=== PATIENT | female | born 1950 | race Caucasian/White ===

== ENCOUNTER 2016-05-31 10:05 | Observation (INO) | payer MEDICARE ==
[~2016-05-31] VITALS: Ht 167.6 cm; Wt 108.0 kg
[2016-05-31] VITALS (16 sets, daily range): BP systolic 85–163; BP diastolic 51–93
[~2016-05-31 10:05] MED LIST: ALBU8.5H2 IH; AMOX500C2 PO; ASP325T PO; ASP81TEC PO; BUDE6HFA IH; CITA10TA70 PO; DPAS20025 PO; ERGO400C PO; ESCT10T PO; FRSM40T PO; FURO80TA3 PO; GBPN100C PO; HCT25T PO; HYDR-34 PO; HYDR12.570 GT; LISI10TA PO; METO100T5 PO; POTA10CA43 PO; PRV20T PO; RANI300T4 PO; RNT150T PO; ROPI0.5T2 PO; SIMV40TA4 PO; SULF1TAB38 PO; TIOT18CA IH; VARE0.5T PO; ZLP5T PO; oxygen NSEACH
--- OUTSIDE RECORDS SUMMARY | 2016-05-31 10:12 | XMS REPORT | Continuity of Care Document ---
Author Author [facility] Organization [facility] Address Unknown Phone Unavailable Care Team Providers Care Moulder Operator Name Role Phone Chang Wilkerson PCP [phone] Source Comments Some departments are not documenting in the electronic medical record. If you do not see the information that you expected, contact Release of Information in the Health Information Management department at [phone] for further assistance in locating additional records.[facility] Active Allergies and Adverse Reactions No Known Allergies Current Medications Prescription Sig. Disp. Refills Start End Date Status Date pantoprazole DR(+) Take 40 mg by mouth Active (PROTONIX) 40 mg PO Daily. tablet ranitidine(+) (ZANTAC) Take 150 mg by mouth Active 150 mg PO tablet Twice Daily. celecoxib (CELEBREX) 200 Take 200 mg by mouth Active mg PO capsule Daily. hydrochlorothiazide Take 12.5 mg by mouth At Active (HYDRODIURIL) 12.5 mg PO Bedtime Daily. Works capsule nights. metoprolol XL (TOPROL XL) Take 25 mg by mouth Active 25 mg PO tablet Daily. simvastatin (ZOCOR) 40 mg Take 40 mg by mouth At Active PO tablet Bedtime Daily. aspirin 81 mg PO chew Take 81 mg by mouth Active tablet daily. Indications: ON HOLD torsemide (DEMADEX) 5 mg Take 5 mg by mouth Daily. Active PO tablet Takes in PM because she works nights escitalopram (LEXAPRO) 10 Take 10 mg by mouth Active mg PO tablet Daily. tramadol (ULTRAM) 50 mg Take 50-100 mg by mouth Active PO tablet Every 6 Hours as needed. Max 8 tabs/day acetaminophen 650 mg PO Take 1 Tab by mouth every 30 Tab 07/22/19 Active Tab 6 hours as needed. 11 hydrocodone/acetaminophen Take 1-2 Tabs by mouth 30 Tab 07/22/19 Active (VICODIN) 5/500 mg PO every 6 hours as needed 11 tablet for Pain. lorazepam (ATIVAN) 0.5 mg Take 1-2 Tabs by mouth 30 Tab 07/22/19 Active PO tablet every 6 hours as needed. 11 diphenhydrAMINE Take 1 Cap by mouth every 30 Cap 07/22/19 Active (BENADRYL) 25 mg PO 6 hours as needed. 11 capsule hyoscyamine (LEVSIN/SL) 1 Tab every 4 hours as 30 Tab 07/22/19 Active 0.125 mg SL tablet needed. 11 docusate (COLACE) 100 mg Take 1 Cap by mouth twice 180 Cap 07/22/19 Active PO capsule daily. 11 naproxen (NAPROSYN) 500 Take 1 Tab by mouth twice 07/22/19 Active mg PO tablet daily as needed. 11 dipyridamole/aspirin Take 1 Cap by mouth twice 180 Cap 07/22/19 Active (AGGRENOX) 200/25 mg PO daily. 11 capsule nicotine (NICOTROL) 14 Apply 1 Patch to top of 28 Patch 07/22/19 Active mg/day TD patch skin as directed daily. 11 ondansetron (ZOFRAN) 4 Administer 2 mL through 07/22/19 Active mg/2 mL IJ Soln vein every 6 hours as 11 needed. varenicline (CHANTIX) Take by mouth Take as 53 Tab 0 07/22/19 Active 0.5(11)-1(3X14) mg PO directed. Take 0.5 tablet 11 tablet daily for 3 days, then increase to 0.5 tablet twice daily for 3 days, then increase to 1 tablet twice daily Active Problems Problem Noted Date Stroke (HCC) 07/19/2010 HTN (hypertension) 07/19/2010 HLD (hyperlipidemia) 07/19/2010 Kidney stone 07/19/2010 Social History Tobacco Use Types Packs/Day Years Used Date Current Every Day Smoker Cigarettes 0.5 45 Smokeless Tobacco: Never Used Alcohol Use Drinks/Week oz/Week Comments No Last Filed Vital Signs Vital Sign Reading Time Taken Blood Pressure 153/71 07/22/2010 3:20 AM SENIOR LANDSCAPE ARCHITECT Pulse 61 07/22/2010 3:20 AM SENIOR LANDSCAPE ARCHITECT Temperature 37.1 C (98.8 F) 07/21/2010 11:10 PM SENIOR LANDSCAPE ARCHITECT Respiratory Rate - - Height 1.702 m (5' 7.01") 07/17/2010 9:00 AM SENIOR LANDSCAPE ARCHITECT Weight 109.816 kg (242 lb 1.6 07/22/2010 3:20 AM SENIOR LANDSCAPE ARCHITECT oz) Body Mass Index 37.91 07/22/2010 3:20 AM SENIOR LANDSCAPE ARCHITECT Oxygen Saturation 95% 07/22/2010 3:20 AM SENIOR LANDSCAPE ARCHITECT Plan of Care Health Maintenance Due Date Last Done Comments Physical (Comprehensive) 1957 Exam Pertussis Vaccine 1961 Tetanus Vaccine 1967 Breast Cancer Screening 1990 Colorectal Cancer 2000 Screening Shingles Vaccine 2010 Osteoporosis Screening 2015 Prevnar/Pneumovax (#1) 2015 Influenza Vaccine 01/25/2016 Results from Last 3 Months Not on file
--- NOTE | 2016-05-31 10:48 | ED Cough/URI ---
General Chief Complaint: Respiratory Problems Stated Complaint: SOA Source: patient Exam Limitations: no limitations History of Present Illness Time seen by provider: 10:45 Initial Comments To ER for [facility] with reports of low oxygen saturation. Patient has a history of COPD and recent pneumonia. She was treated at [facility] the week before [place] for a left humerus fracture without surgery and remains in a sling. During her stay she reportedly had some renal dysfunction (which according to our labs would not necessarily be a new thing) as well as pneumonia. She was then placed at [facility] for rehabilitation.She denies fevers or chills or C Pap night. She wears oxygen vsfdtk-pcr-[id number] at 3 L. She was reportedly at around 70 percent and lethargic at the shelter. EMS initiated C Pap which improved saturations but she remained lethargic upon arrival to ER. Timing/Duration: this morning Severity/Quality: moderate Associated Symptoms: cough, fever/chills, shortness of breath Allergies and Home Medications Allergies Coded Allergies: No Known Drug Allergies (Unverified , 02/08/11) Home Medications 4 L NSEACH PRN (Reported) Albuterol 8.5 Gm Hfa.aer.ad 8.5 GM IH Q6H PRN PRN (Reported) 2 PUFFS Amoxicillin 500 Mg Capsule 1 EACH PO TID (Reported) finish 1 month supply Aspirin 81 Mg Tabec 81 MG PO DAILY (Reported) Budesonide/Formoterol Fumarate 10.2 Gm Hfa.aer.ad 10.2 GM IH BID (Reported) Cholecalciferol 400 Unit Capsule 400 UNIT PO DAILY (Reported) Escitalopram Oxalate 10 Mg Tablet 10 MG PO DAILY (Reported) Furosemide 40 Mg Tab 40 MG PO DAILY (Reported) Gabapentin 100 Mg Cap 100 MG PO QID (Reported) Potassium Chloride 10 Meq Capsule.sa 10 MEQ PO DAILY (Reported) Pravastatin Sod 20 Mg Tab 20 MG PO DAILY (Reported) Ranitidine Hcl 150 Mg Tablet 150 MG PO BID (Reported) Ropinirole Hcl 0.5 Mg Tablet 0.5 MG PO HS (Reported) Tiotropium [place] 18 Mcg Cap.w.dev #1 1 SPRAY IH UD (Reported) Trimethoprim/Sulfamethoxazole 1 Ea Tablet 1 EA PO BID (Reported) Zolpidem Tartrate 5 Mg Tab 5 MG PO HS PRN PRN (Reported) Constitutional: see HPINo chills, No fever EENTM: see HPI Respiratory: see HPI cough short of breath Cardiovascular: no symptoms reported Genitourinary: no symptoms reported Musculoskeletal: no symptoms reported Skin: no symptoms reported Psychiatric/Neurological: No Symptoms Reported Hematologic/Lymphatic: No Symptoms Reported Immunological/Allergic: no symptoms reported Past Dattslv-Wqlpef-Yvslne Hx Immunizations Up To Date Date of Pneumonia Vaccine: Mar 06, 2012 Date of Influenza Vaccine: Mar 06, 2012 Respiratory Hx Respiratory Disorders: Yes (copd) Cardiovascular Hx Cardiac Disorders: No Neurological Hx Neurological Disorders: No Reproductive System Hx Reproductive Disorders: No Genitourinary Hx Genitourinary Disorders: No Gastrointestinal Hx Gastrointestinal Disorders: Yes (GERD) Musculoskeletal Hx Musculoskeletal Disorders: Yes Endocrine Hx Endocrine Disorders: No HEENT HX ENT Disorders: No Cancer Hx Cancer: No Blood Transfusions Hx Blood Disorders: No Physical Exam Vital Signs Vital Sign - Last 12Hours 05/31/16 05/31/16 10:25 10:40 Temp 98.1 Pulse 81 Resp 30 B/P 163/82 Pulse Ox 99 O2 Delivery NIV/CPAP O2 Flow Rate 35.00 Capillary Refill : General Appearance: WD/WN no apparent distress Eyes: Bilateral Eye EOMI, Bilateral Eye Normal Inspection, Bilateral Eye PERRL HEENT: PERRL/EOMI normal ENT inspection Neck: non-tender full range of motion Respiratory: no respiratory distress no accessory muscle use decreased breath sounds Gastrointestinal: normal bowel sounds non tender soft Extremities: normal range of motion non-tender pedal edema Neurologic/Psychiatric: alert normal mood/affect oriented x 3 other (she is not lethargic, sitting up in bed talkative) Skin: normal color warm/dry Progress/Results/Core Measures Results/Orders Lab Results Laboratory Tests Test 05/31/16 11:08 05/31/16 11:10 05/31/16 13:00 Range/Units Alanine Aminotransferase (ALT/SGPT) 23 0-55 U/L Albumin 3.8 3.2-4.5 G/DL Alkaline Phosphatase 83 40-136 U/L Anion Gap 9 5-14 MMOL/L Aspartate Amino Transf (AST/SGOT) 11 5-34 U/L BUN/Creatinine Ratio 38 Basophils # (Auto) 0.0 0.0-0.1 10^3/uL Basophils (%) (Auto) 0 0-10 % Blood Urea Nitrogen 34 H 7-18 MG/DL Calcium Level 10.1 8.5-10.1 MG/DL Carbon Dioxide Level 43 H 21-32 MMOL/L Chloride Level 88 L 98-107 MMOL/L Creatinine 0.90 0.60-1.30 MG/DL Eosinophils # (Auto) 0.1 0.0-0.3 10^3/uL Eosinophils (%) (Auto) 1 0-10 % Estimat Glomerular Filtration Rate > 60 Glucose Level 118 H 70-105 MG/DL Hematocrit 43 35-52 % Hemoglobin 12.5 11.5-16.0 G/DL Lactic Acid Level 0.8 0.5-2.0 MMOL/L Lymphocytes # (Auto) 1.3 1.0-4.0 X 10^3 Lymphocytes (%) (Auto) 14 12-44 % Mean Corpuscular Hemoglobin 30 25-34 PG Mean Corpuscular Hemoglobin Concent 29 L 32-36 G/DL Mean Corpuscular Volume 104 H 80-99 FL Mean Platelet Volume 11.5 H 7.4-10.4 FL Monocytes # (Auto) 1.1 H 0.0-1.0 X 10^3 Monocytes (%) (Auto) 12 0-12 % Neutrophils # (Auto) 6.6 1.8-7.8 X 10^3 Neutrophils (%) (Auto) 73 42-75 % Platelet Count 199 130-400 10^3/uL Potassium Level 3.9 3.6-5.0 MMOL/L Red Blood Count 4.12 L 4.35-5.85 10^6/uL Red Cell Distribution Width 15.6 H 10.0-14.5 % Sodium Level 140 135-145 MMOL/L Total Bilirubin 0.6 0.1-1.0 MG/DL Total Protein 5.9 L 6.4-8.2 G/DL White Blood Count 9.1 4.3-11.0 10^3/uL Isauro Test RAD YES-POS Arterial Blood Base Excess 18.4 H 18.1 H -2.5-2.5 MMOL/L Arterial Blood HCO3 47 *H 48 *H 23-27 MMOL/L Arterial Blood Oxygen Saturation 98 98 94-100 % Arterial Blood Partial Pressure CO2 81 *H 84 *H 35-45 MMHG Arterial Blood Partial Pressure O2 118 H 104 H 79-93 MMHG Arterial Blood Total CO2 49.8 H 50.5 H 21.0-31.0 MMOL/L Arterial Blood pH 7.38 7.37 7.37-7.43 Blood Gas Inspired Oxygen 3 3 Blood Gas Patient Temperature 98.2 97.8 Blood Gas Puncture Site R R RAD Blood Gas Ventilator Setting NO NO My Orders Orders-ESVIN SOTO APRN Cbc With Automated Diff (05/31/16 10:44) Comprehensive Metabolic Panel (05/31/16 10:44) Ua Culture If Indicated (05/31/16 10:44) Chest 1 View, Ap/Pa Only (05/31/16 10:44) Saline Lock/Iv-Start (05/31/16 10:44) Blood Culture (05/31/16 10:44) Lactic Acid Analyzer (05/31/16 10:44) Arterial Blood Gas (05/31/16 11:11) Furosemide Injection (Lasix Injection) (05/31/16 12:00) Arterial Blood Gas (05/31/16 12:46) Medications Given in ED Current Medications Medications Dose Ordered Sig/Saleem Route Start Time Stop Time Status Last Admin Dose Admin Furosemide 40 mg ONCE ONCE IVP 05/31/16 12:00 05/31/16 12:01 DC 05/31/16 12:08 40 MG Vital Signs/I&O Vital Sign - Last 12Hours 05/31/16 05/31/16 10:25 10:40 Temp 98.1 Pulse 81 80 Resp 30 20 B/P 163/82 Pulse Ox 99 98 O2 Delivery NIV/CPAP O2 Flow Rate 35.00 Progress Note : Progress Note 1129- C Pap was turned off at 1042 by me and she was placed on 3 L of oxygen per nasal cannula which she remains on at this time. She remains alert with oxygen saturation of greater than 95 percent and no respiratory distress. She is talkative and pleasant and states she feels fine and would like to go back to the shelter to get therapy. She is sitting on the edge of the bed with feet hanging off. Diagnostic Imaging Diagonstic Imaging: Xray Plain Films/CT/US/NM/MRI: chest Comments NAME: ANGIE ORDONEZ [facility] REC#: [id number] PT STATUS: REG ER : 1950 PHYSICIAN: ESVIN SOTO APRN ADMIT DATE: 05/31/16/ER Draft Date of Exam:05/31/16 CHEST 1 VIEW, AP/PA ONLY Portable upright radiograph of the chest. INDICATION: Shortness of breath. COMPARISON: 10/25/2014. FINDINGS: The heart size is moderately enlarged. Low lung volumes. There is pulmonary vascular congestion. There is question of a tiny left pleural effusion. No definite right effusion. No pneumothorax. The mediastinum and tex appear unremarkable. IMPRESSION: Cardiomegaly with pulmonary vascular congestion. Low lung volumes. Dictated on workstation # [id number] Dict: 05/31/16 1103 Trans: 05/31/16 1123 KB [id number] Interpreted by: DAVIDE BRICEÑO MD Electronically signed by: Departure Communication Time/Spoke to Admitting Phy: 13:52 Communication Repeat ABG done shows worsening hypercarbia. I discussed with Dr. Hernandes who would strongly recommend admission for BiPAP Progress Notes 1155-patient sitting up on the edge of the bed still, 95-96 percent on baseline 3 L. States that she feels well. Mentation is alert and appropriate. Lab called to inform that both the ABG main analyzer and the ABG backup analyzer are broken down and will not be able to obtain these for some time. Impression Impression: Primary Impression: COPD (chronic obstructive pulmonary disease) Qualified Code: J44.9 - Chronic obstructive pulmonary disease, unspecified Additional Impression: Hypercarbia Disposition: 01 HOME, SELF-CARE Condition: Stable Decision to Admit Reason: Admit from ER (General) Decision to Admit/Date: May 31, 2016 Time/Decision to Admit Time: 13:53 Departure-Patient Inst. Decision time for Depature: 11:57 Referrals: MEDARDO SINGH MD (PCP/Family) Primary Care Physician Patient Instructions: NO INSTRUCTIONS GIVEN Add. Discharge Instructions: 1. Return to ER for any concerns 2. Follow-up with her doctor next week All discharge instructions reviewed with patient and/or family. Voiced understanding. ESVIN SOTO APRN May 31, 2016 10:48
--- NOTE | 2016-05-31 11:24 | Diagnostic Imaging Report ---
Portable upright radiograph of the chest. INDICATION: Shortness of breath. COMPARISON: 10/25/2014. FINDINGS: The heart size is moderately enlarged. Low lung volumes. There is pulmonary vascular congestion. There is question of a tiny left pleural effusion. No definite right effusion. No pneumothorax. The mediastinum and tex appear unremarkable. IMPRESSION: Cardiomegaly with pulmonary vascular congestion. Low lung volumes. Dictated by: Dictated on workstation # [id number]
[2016-05-31 11:26] LABS: BASOPHILS % (AUTO) 0 % (0-10); EOSINOPHILS # (AUTO) 0.1 10^3/uL (0.0-0.3); EOSINOPHILS % (AUTO) 1 % (0-10); LYMPHOCYTES # (AUTO) 1.3 X 10^3 (1.0-4.0); LYMPHOCYTES % (AUTO) 14 % (12-44); MEAN CORPUSCULAR HEMOGLOBIN 30 PG (25-34); MEAN CORPUSCULAR HGB CONC 29 G/DL (32-36); MEAN CORPUSCULAR VOLUME 104 FL (80-99); MEAN PLATELET VOLUME 11.5 FL (7.4-10.4); MONOCYTES # (AUTO) 1.1 X 10^3 (0.0-1.0); MONOCYTES % (AUTO) 12 % (0-12); NEUTROPHILS # (AUTO) 6.6 X 10^3 (1.8-7.8); NEUTROPHILS % (AUTO) 73 % (42-75); PLATELET COUNT 199 10^3/uL (130-400); RED BLOOD COUNT 4.12 10^6/uL (4.35-5.85); RED CELL DISTRIBUTION WIDTH 15.6 % (10.0-14.5); WHITE BLOOD COUNT 9.1 10^3/uL (4.3-11.0)
[2016-05-31 11:46] LABS: ALANINE AMINOTRANSFERASE 23 U/L (0-55); ALBUMIN 3.8 G/DL (3.2-4.5); ANION GAP 9 MMOL/L (5-14); ASPARTATE AMINO TRANSFERASE 11 U/L (5-34); BILIRUBIN,TOTAL 0.6 MG/DL (0.1-1.0); BLOOD UREA NITROGEN 34 MG/DL (7-18); BUN/CREATININE RATIO 38; CALCIUM 10.1 MG/DL (8.5-10.1); CARBON DIOXIDE 43 MMOL/L (21-32); CHLORIDE 88 MMOL/L (98-107); GFR ESTIMATED > 60; GLUCOSE 118 MG/DL (70-105); POTASSIUM 3.9 MMOL/L (3.6-5.0); SODIUM 140 MMOL/L (135-145); TOTAL PROTEIN 5.9 G/DL (6.4-8.2)
[2016-05-31] MEDS ORDERED: FUROSEMIDE 40 MG/4 ML INJ (LASIX) IVP ONE (12:00)
[2016-05-31 12:30] LABS: ABG PO2 118 MMHG (79-93)
[2016-05-31 12:32] LABS: ABG BASE EXCESS 18.4 MMOL/L (-2.5-2.5); ABG OXYGEN SATURATION 98 % (94-100); ABG TCO2 49.8 MMOL/L (21.0-31.0)
[2016-05-31 12:34] LABS: ALLENS TEST RAD; PATIENT TEMP 98.2
[2016-05-31 12:35] LABS: ABG HCO3 47 MMOL/L (23-27); ABG PCO2 81 MMHG (35-45)
[2016-05-31 12:36] LABS: ABG PH 7.38 (7.37-7.43)
[2016-05-31 13:29] LABS: ABG BASE EXCESS 18.1 MMOL/L (-2.5-2.5); ABG OXYGEN SATURATION 98 % (94-100); ABG PH 7.37 (7.37-7.43); ABG PO2 104 MMHG (79-93); ABG TCO2 50.5 MMOL/L (21.0-31.0)
[2016-05-31 13:31] LABS: ABG HCO3 48 MMOL/L (23-27); ABG PCO2 84 MMHG (35-45); ALLENS TEST YES-POS; PATIENT TEMP 97.8
[2016-05-31] MEDS ORDERED: RT-ALBUTEROL/IPRATROPIUM 3 ML (DUONEB) VIAL INH PRN (15:15)
[2016-05-31] MEDS ORDERED: CATHETER FLUSH 10 ML SYR IV PRN (15:30)
[2016-05-31] MEDS ORDERED: ASPI325T32 PO (15:36)
[2016-05-31] MEDS ORDERED: IPRA3AMP IH (15:36)
[2016-05-31] MEDS ORDERED: ROPI1TAB40 PO (15:36)
[2016-05-31] MEDS ORDERED: INSU100I14 SQ (15:36)
[2016-05-31] MEDS ORDERED: LISI-556 PO (15:36)
[2016-05-31] MEDS ORDERED: PANT40TA3 PO (15:36)
[2016-05-31] MEDS ORDERED: CARV6.25 PO (15:36)
[2016-05-31] MEDS ORDERED: ESCI10TA55 PO (15:36)
[2016-05-31] MEDS ORDERED: SENN-40 PO (15:36)
[2016-05-31] MEDS ORDERED: BISA10SU6 RC (15:36)
[2016-05-31] MEDS ORDERED: FURO40TA4 PO (15:36)
[2016-05-31] MEDS ORDERED: PRAV40TA2 PO (15:36)
[2016-05-31] MEDS ORDERED: MOME13HF2 IH (15:36)
[2016-05-31] MEDS ORDERED: GUAI600T43 PO (15:36)
[2016-05-31] MEDS ORDERED: BISA5TAB8 PO (15:36)
[2016-05-31] MEDS ORDERED: TRAM50TA2 PO (15:36)
[2016-05-31] MEDS ORDERED: PRD10T PO (15:49)
[2016-05-31] MEDS ORDERED: FLU TRIvalent (5 YOA+) 2016-17 (AFLURIA) 0.5 ML IM ONE (17:00)
[2016-05-31 18:27] LABS: ABG OXYGEN SATURATION 92 % (94-100); ABG PH 7.37 (7.37-7.43); ABG PO2 65 MMHG (79-93)
[2016-05-31 18:28] LABS: ABG HCO3 48 MMOL/L (23-27); ABG PCO2 86 MMHG (35-45); ALLENS TEST POSITIVE
[2016-05-31 18:29] LABS: PATIENT TEMP 98.8
[2016-05-31] MEDS: RT-ADVAIR HFA 115/21 MCG PER PUFF IH SCH (18:41)
[2016-05-31] MEDS: RT-ALBUTEROL/IPRATROPIUM 3 ML (DUONEB) VIAL INH SCH ×2 (18:41→22:16)
[2016-05-31] MEDS ORDERED: RT-SYMBICORT 160/4.5 MCG INHALER PER PUFF IH SCH (21:00)
[2016-05-31] MEDS ORDERED: HYDROmorphone (DILAUDID) 2 MG/ML VIAL IV ONE (21:15)
[2016-05-31] MEDS: CATHETER FLUSH 10 ML SYR IV SCH (22:26)
[2016-06-01] VITALS (18 sets, daily range): BP systolic 104–143; BP diastolic 50–92
[2016-06-01] MEDS: RT-ALBUTEROL/IPRATROPIUM 3 ML (DUONEB) VIAL INH SCH ×6 (02:13→22:03)
[2016-06-01] MEDS: ACETAMINOPHEN 325 MG TABLET/CAPLET (TYLENOL) PO PRN (03:00)
[2016-06-01 04:41] LABS: ABG BASE EXCESS 18.4 MMOL/L (-2.5-2.5); ABG OXYGEN SATURATION 97 % (94-100); ABG PCO2 62 MMHG (35-45); ABG PH 7.48 (7.37-7.43); ABG PO2 93 MMHG (79-93); ABG TCO2 46.7 MMOL/L (21.0-31.0)
[2016-06-01] MEDS ORDERED: NS IV 500 ML 500 ML ONE (04:42)
[2016-06-01 04:43] LABS: BASOPHILS % (AUTO) 0 % (0-10); EOSINOPHILS # (AUTO) 0.1 10^3/uL (0.0-0.3); EOSINOPHILS % (AUTO) 1 % (0-10); LYMPHOCYTES # (AUTO) 1.6 X 10^3 (1.0-4.0); LYMPHOCYTES % (AUTO) 24 % (12-44); MEAN CORPUSCULAR HEMOGLOBIN 30 PG (25-34); MEAN CORPUSCULAR HGB CONC 29 G/DL (32-36); MEAN CORPUSCULAR VOLUME 103 FL (80-99); MEAN PLATELET VOLUME 11.8 FL (7.4-10.4); MONOCYTES # (AUTO) 0.7 X 10^3 (0.0-1.0); MONOCYTES % (AUTO) 10 % (0-12); NEUTROPHILS # (AUTO) 4.5 X 10^3 (1.8-7.8); NEUTROPHILS % (AUTO) 65 % (42-75); PLATELET COUNT 151 10^3/uL (130-400); RED BLOOD COUNT 3.87 10^6/uL (4.35-5.85); RED CELL DISTRIBUTION WIDTH 15.7 % (10.0-14.5); WHITE BLOOD COUNT 6.9 10^3/uL (4.3-11.0)
[2016-06-01 04:51] LABS: ALLENS TEST YES-POS; PATIENT TEMP 98.8
[2016-06-01 04:52] LABS: ABG HCO3 45 MMOL/L (23-27)
[2016-06-01] MEDS ORDERED: NS IV 500 ML 500 ML IV ONE (05:00)
[2016-06-01 05:11] LABS: ANION GAP 12 MMOL/L (5-14); BLOOD UREA NITROGEN 32 MG/DL (7-18); BUN/CREATININE RATIO 37; CALCIUM 9.5 MG/DL (8.5-10.1); CARBON DIOXIDE 40 MMOL/L (21-32); CHLORIDE 89 MMOL/L (98-107); CREATININE SERUM 0.86 MG/DL (0.60-1.30); GFR ESTIMATED > 60; GLUCOSE 118 MG/DL (70-105); MAGNESIUM 1.8 MG/DL (1.8-2.4); PHOSPHORUS 2.5 MG/DL (2.3-4.7); SODIUM 141 MMOL/L (135-145)
[2016-06-01] MEDS: CATHETER FLUSH 10 ML SYR IV SCH (05:30)
[2016-06-01] MEDS ORDERED: KCL 20 MEQ TAB (K-DUR) PO SCH (06:00)
[2016-06-01] MEDS ORDERED: MAGNESIUM 1 GM/100 ML IVPB 100 ML IV SCH (06:00)
[2016-06-01] MEDS ORDERED: POTASSIUM CL 10MEQ/50ML IVPB 50 ML IV SCH (06:00)
[2016-06-01] MEDS: UMECLIDINIUM BROMIDE (INCRUSE ELLIPTA) 7'S IH SCH (06:41)
[2016-06-01] MEDS: RT-ADVAIR HFA 115/21 MCG PER PUFF IH SCH ×2 (06:41→18:47)
[2016-06-01] MEDS ORDERED: TIOTROPIUM BROMIDE (SPIRIVA) 5'S INHALER IH SCH (08:00)
[2016-06-01 10:37] LABS: BILIRUBIN,URINE NEGATIVE (NEGATIVE); KETONES,URINE 1+ (NEGATIVE); LEUKOCYTE ESTERASE ,URINE 3+ (NEGATIVE); NITRITE,URINE POSITIVE (NEGATIVE); PH,URINE 8 (5-9); PROTEIN,URINE 2+ (NEGATIVE); UROBILINOGEN,URINE 4 MG/DL (NORMAL)
[2016-06-01 10:49] LABS: SQUAMOUS EPITHELIAL CELL,UR 0-2 /HPF; WBC,URINE 25-50 /HPF
--- NOTE | 2016-06-01 11:16 | Diagnostic Imaging Report ---
INDICATION: Dyspnea, fracture. FINDINGS: Left-sided subpulmonic pleural fluid and elevation of the diaphragm have increased. There is a proximal left humeral fracture as a known finding. No pneumothorax. There is some increased left basilar atelectasis. IMPRESSION: Increased left basilar pleural parenchymal opacity with left humeral fracture. No pneumothorax. Dictated by: Dictated on workstation # [id number]
--- NOTE | 2016-06-01 12:08 | History & Physical-Hospitalist ---
HPI History of Present Illness: HPI/Chief Complaint The patient is a 66-year-old white female who was admitted from the emergency room yesterday. She had been at [facility] after suffering a fracture of the left humerus the week prior to . She was treated for that at [facility] in [place] and placed in a sling. Because of the injury she then went to [place] for continuing care as she suffers from rather severe COPD, had the aforementioned fracture, and required general assistance. [facility] observed that her O2 sat was low and sent her to the emergency room as SaO2's of 70 percent were reported plus lethargy. The patient states that she has used oxygen at 3 L/m continuously for some time. In addition she uses CPAP at night. This had not been done at [facility]. She was found to be hypercarbic in the emergency room. Treatments and BiPAP were initiated there. The initial plan was to discharge her home however she did not rally sufficiently to do this. She reports that she is much better at this time and feels to have returned to her previous state. Source: patient Exam Limitations: no limitations Date Seen 06/01/16 Attending Physician Elijah Hernández MD PCP Deloris Spencer MD Referring Physician Date of Admission May 31, 2016 at 13:57 Home Medications & Allergies Home Medications Reviewed patient Home Medication Reconciliation Form Allergies Coded Allergies: No Known Drug Allergies (Unverified , 02/08/11) Past Fpezfrk-Zozbfh-Wihfeb Hx Patient Social History Alcohol Use: Denies Use Recreational Drug Use: No Smoking Status: Former Smoker Physical Abuse Screen: No Sexual Abuse: No Recent Foreign Travel: No Contact w/other who traveled: No Recent Hopitalizations: Yes Recent Infectious Disease Expo: No Immunizations Up To Date Date of Pneumonia Vaccine: Mar 06, 2012 Date of Influenza Vaccine: Mar 06, 2012 Respiratory Hx Respiratory Disorders: Yes (copd) Cardiovascular Hx Cardiovascular Disorders: No Neurological Hx Neurological Disorders: No Reproductive System Hx Reproductive Disorders: No Sexually Transmitted Disease: No Genitourinary Hx Genitourinary Disorders: No Gastrointestinal Hx Gastrointestinal Disorders: Yes (GERD) Gastrointestinal Disorders: Gastroesophageal Reflux Musculoskeletal Hx Musculoskeletal Disorders: Yes Endocrine Hx Endocrine Disorders: No HEENT HX ENT Disorders: No Cancer Hx Cancer: No Blood Transfusions Hx Blood Disorders: No Review of Systems Constitutional: see HPI EENTM: no symptoms reported Respiratory: see HPI dyspnea on exertion short of breath (chronic with home O2 ) Gastrointestinal: no symptoms reported Genitourinary: no symptoms reported Musculoskeletal: no symptoms reported Skin: no symptoms reported Psychiatric/Neurological: No Symptoms Reported Physical Exam Physical Exam Vital Signs Vital Sign - Last 12Hours 05/31/16 05/31/16 05/31/16 10:25 10:40 14:30 Temp 98.1 Pulse 81 Resp 30 B/P 163/82 Pulse Ox 99 O2 Delivery NIV/CPAP O2 Flow Rate 35.00 FiO2 35 Capillary Refill : Less Than 3 SecondsLess Than 3 Seconds General Appearance: No Apparent Distress WD/WN Eyes: Bilateral Eye Normal Inspection HEENT: Normal ENT Inspection Neck: Full Range of Motion Normal Inspection Non Tender Supple Carotid Bruit Respiratory: Chest Non Tender Lungs Clear No Accessory Muscle Use No Respiratory Distress Decreased Breath Sounds Cardiovascular: Regular Rate, Rhythm No Edema No Gallop No JVD No Murmur Normal Peripheral Pulses Gastrointestinal: Normal Bowel Sounds Back: Normal Inspection No CVA Tenderness No Vertebral Tenderness Extremity: Normal Capillary Refill Non Tender No Calf Tenderness No Pedal Edema Other (the left humerus appears generally swollen. It is tender to touch. There is a large deep purple ecchymotic area proximal to the elbow.) Neurologic/Psychiatric: Alert Oriented x3 No Motor/Sensory Deficits Normal Mood/Affect Skin: Normal Color Warm/Dry Lymphatic: No Adenopathy Results Results/Procedures Lab Laboratory Tests 05/31/16 11:08 06/01/16 03:38 Assessment/Plan Admission Diagnosis 1.carbon dioxide narcosis. 2.severe COPD with continuous oxygen use at 3 L/m and CPAP at bedtime as an outpatient. 3.fracture left humerus Clinical Quality Measures DVT/VTE Risk/Contraindication: Risk Factor Score Per Nursin RFS Level Per Nursing on Admit: 4+=Very High ELIJAH HERNÁNDEZ MD Jun 01, 2016 12:08
[2016-06-01] MEDS: ENOXAPARIN 40 MG/0.4 ML (LOVENOX) SYR SC SCH (12:48)
[2016-06-02] VITALS: BP 170/77
[2016-06-02] MEDS: ACETAMINOPHEN 325 MG TABLET/CAPLET (TYLENOL) PO PRN ×2 (01:31→08:33)
[2016-06-02] MEDS: RT-ALBUTEROL/IPRATROPIUM 3 ML (DUONEB) VIAL INH SCH ×3 (02:04→10:57)
[2016-06-02 04:00] VITALS: BP 149/77
[2016-06-02] MEDS: RT-ADVAIR HFA 115/21 MCG PER PUFF IH SCH (06:22)
[2016-06-02] MEDS: UMECLIDINIUM BROMIDE (INCRUSE ELLIPTA) 7'S IH SCH (06:22)
[2016-06-02 08:40] VITALS: BP 146/72
[2016-06-02] MEDS ORDERED: cefTRIAXone INJECTION 1,000 MG in NORMAL SALINE (BAXTER MINI) 50 ML IV ONE (10:15)
[2016-06-02] MEDS: ENOXAPARIN 40 MG/0.4 ML (LOVENOX) SYR SC SCH (11:10)
--- NOTE | 2016-06-02 11:46 | Progress Note-Hospitalist ---
Standard Progress Note Progress Notes/Assess & Plan Date Seen 06/02/16 Diagnosis 1.carbon dioxide narcosis. 2.severe COPD with continuous oxygen use at 3 L/m and CPAP at bedtime as an outpatient. 3.fracture left humerus Assess & Plan/Chief Complaint The patient is doing well and eager to return to the [place]. She is alert and oriented. She wore her CPAP at sleep last night. Other than complaints about the mask and the nasal piece she was well satisfied. She remains afebrile with normal vital signs. [facility] has agreed to pick her up if She can be ready before 1300. This will be done. Physical exam: She is alert and pleasant and oriented. Nasal cannula O2 is in place. Lungs show distant breath sounds but are clear. CV is regular. Ankles show no pedal edema. Plan: Return to [facility]. She promises to use her CPAP at at bedtime. Labs Laboratory Tests 06/01/16 03:38 Final Diagnosis Severe COPD with the chronic use of O2. 2.sleep apnea treated with CPAP. 3.recent left humerus fracture Copy Copies To 1: MEDARDO SINGH MD, RODNEY K MD Jun 02, 2016 11:46
[2016-06-02] MEDS ORDERED: CEFD300C3 PO (11:49)
--- NOTE | 2016-06-02 11:52 | Discharge Inst-Simple/Standard ---
Discharge Inst-Standard Discharge Medications New, Converted or Re-Newed RX: RX on Chart Patient Instructions/Follow Up Plan of Care/Instructions/FU: Return to medical [facility] [place] and resume previous orders. Continue the use of O2 by nasal cannula during the daytime hours. CPAP at sleeping hours. Activity as Tolerated: Yes Goal: Return to PRE fracture status Discharge Diet: Regular Diet LUIS HERNÁNDEZ MD Jun 02, 2016 11:52
== END 2016-06-02 12:43 ==
LOC: EDUNIT# 10:05 → ER 10:08 → ICU 13:57 → 4TH 06-01 11:37
PROVIDERS: ADMIT Internal Medicine; ATTEND Internal Medicine
DX: J44.9 Chronic obstructive pulmonary disease, unspecified (principal); G47.30 Sleep apnea, unspecified; S42.302D Unspecified fracture of shaft of humerus, left arm, subsequent encounter for fracture with routine healing; K21.9 Gastro-esophageal reflux disease without esophagitis; Z99.81 Dependence on supplemental oxygen
CPT/HCPCS: 36415; 71010; 80048; 80053; 81000; 82805; 83605; 83735; 84100; 85025; 87040; 87077; 87088; 87186; 94640; 94660; 94760; 96374; G0378

== ENCOUNTER → 2017-02-27 | Outpatient (CLI) | payer MEDICARE ==
[~2017-02-27] MED LIST changes: +ASPI325T32 PO; +BISA10SU6 RC; +BISA5TAB8 PO; +CARV6.25 PO; +CEFD300C3 PO; +ESCI10TA55 PO; +FURO40TA4 PO; +GUAI600T43 PO; +INSU100I14 SQ; +IPRA3AMP IH; +LISI-556 PO; +MOME13HF2 IH; +PANT40TA3 PO; +PRAV40TA2 PO; +PRD10T PO; +ROPI1TAB40 PO; +SENN-40 PO; +TRAM50TA2 PO
--- NOTE | 2017-02-27 17:14 | Diagnostic Imaging Report ---
EXAMINATION: PA and lateral views of the chest. COMPARISON: 06/01/2016. INDICATION: Shortness of breath. FINDINGS: There is elevation of the left hemidiaphragm with blunting of the costophrenic angle likely related to a small effusion or pleural thickening. Similar findings were seen on 06/01/2016. Left basilar atelectasis is also suggested. The right infrahilar linear opacity is likely related to atelectasis or scarring. There is cardiomegaly with mild pulmonary vascular congestion. No pneumothorax. IMPRESSION: Cardiomegaly with mild pulmonary vascular congestion. Elevated left hemidiaphragm with pleural thickening and left basilar atelectasis. Dictated by: Dictated on workstation # [id number]
== END ==
LOC: RAD 15:28
PROVIDERS: ATTEND Nurse Practitioner Family
DX: I51.7 Cardiomegaly (principal); R91.8 Other nonspecific abnormal finding of lung field
CPT/HCPCS: 71020

== ENCOUNTER 2017-03-04 14:34 | Inpatient (IN) | payer MEDICARE ==
[~2017-03-04] VITALS: Ht 167.6 cm; Wt 116.7 kg
[~2017-03-04 14:34] MED LIST changes: -BUDE10.2 IH; -DOCU-143 PO; -FLUT9.9S NS; -FURO20TA4 PO; -LACT10SO5 PO; -MELO15TA14 PO; -OMEP20CA12 PO; -POLY17PO6 PO; -POTA10TA10 PO; -PRED10TA22 PO; -RT-ALBUINH IH; -SENN-140 PO; -TIOT18CA2 IH
[2017-03-04] MEDS ORDERED: RT-ALBUTEROL/IPRATROPIUM 3 ML (DUONEB) VIAL INH SCH ×2 (15:00→15:15)
--- OUTSIDE RECORDS SUMMARY | 2017-03-04 15:02 | XMS REPORT | Clinical Summary ---
Author Author [facility] Organization [facility] Address Unknown Phone Unavailable Care Team Providers Care Maintenance Plumber Name Role Phone PCP Unavailable Source Comments Some departments are not documenting in the electronic medical record. If you do not see the information that you expected, contact Release of Information in the Health Information Management department at [phone] for further assistance in locating additional records.[facility] Allergies No Known Allergies Current Medications Prescription Sig. [...] chew Take 81 mg by mouth Active tabletIndications: ON daily. Indications: ON HOLD HOLD torsemide (DEMADEX) 5 mg Take 5 [...] 07/19/2010 HLD (hyperlipidemia) 07/19/2010 Kidney stone 07/19/2010 Family History Medical History Relation Name Comments Cancer Father High Cholesterol Father Hypertension Father Cancer Maternal Grandfather Heart Failure Maternal Grandfather Arthritis-osteo Maternal Grandmother Cancer Maternal Uncle Asthma Mother Diabetes Mother High Cholesterol Mother Hypertension Mother Depression Sister Relation Name Status Comments Father Maternal Grandfather Maternal Grandmother Maternal Uncle Mother Sister Social History Tobacco Use Types Packs/Day Years Used Date Current Every Day Smoker Cigarettes 0.5 45 Smokeless Tobacco: Never Used Alcohol Use Drinks/Week oz/Week Comments No Sex Assigned at Date Recorded Not on file Last Filed Vital Signs Vital Sign Reading Time Taken Blood Pressure 153/71 07/22/2010 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 Pulse 61 07/22/2010 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 Temperature 37.1 C (98.8 F) 07/21/2010 11:10 PM SODA DRY HOUSE OPERATOR Respiratory Rate - - Oxygen Saturation 95% 07/22/2010 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 Inhaled Oxygen - - Concentration Weight 109.8 kg (242 lb 1.6 oz) 07/22/2010 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 Height 170.2 cm (5' 7.01") 07/17/2010 9:00 AM SODA DRY HOUSE OPERATOR Body Mass Index 37.91 07/22/2010 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 Plan of Treatment Health Maintenance Due Date Last Done Comments HEPATITIS C SCREENING 1950 PHYSICAL (COMPREHENSIVE) 1957 EXAM PERTUSSIS VACCINE 1961 TETANUS VACCINE 1967 BREAST CANCER SCREENING 1990 COLORECTAL CANCER 2000 SCREENING SHINGLES VACCINE 2010 OSTEOPOROSIS SCREENING 2015 PREVNAR/PNEUMOVAX (#1) 2015 INFLUENZA VACCINE 02/23/2017 Results Not on filefrom Last 3 Months
[2017-03-04] MEDS ORDERED: CATHETER FLUSH 10 ML SYR IV PRN (15:30)
[2017-03-04] MEDS ORDERED: RT-ALBUTEROL/IPRATROPIUM 3 ML (DUONEB) VIAL INH PRN (15:30)
[2017-03-04 15:39] LABS: BASOPHILS % (AUTO) 0 % (0-10); EOSINOPHILS # (AUTO) 0.1 10^3/uL (0.0-0.3); EOSINOPHILS % (AUTO) 1 % (0-10); LYMPHOCYTES # (AUTO) 1.3 X 10^3 (1.0-4.0); LYMPHOCYTES % (AUTO) 15 % (12-44); MEAN CORPUSCULAR HEMOGLOBIN 31 PG (25-34); MEAN CORPUSCULAR HGB CONC 29 G/DL (32-36); MEAN CORPUSCULAR VOLUME 107 FL (80-99); MEAN PLATELET VOLUME 11.1 FL (7.4-10.4); MONOCYTES # (AUTO) 0.9 X 10^3 (0.0-1.0); MONOCYTES % (AUTO) 10 % (0-12); NEUTROPHILS # (AUTO) 6.4 X 10^3 (1.8-7.8); NEUTROPHILS % (AUTO) 74 % (42-75); PLATELET COUNT 233 10^3/uL (130-400); RED BLOOD COUNT 3.84 10^6/uL (4.35-5.85); RED CELL DISTRIBUTION WIDTH 13.8 % (10.0-14.5); WHITE BLOOD COUNT 8.6 10^3/uL (4.3-11.0)
[2017-03-04] MEDS: methylPREDNISolone 40 MG/ML (Solu-MEDROL) VIAL IV SCH ×2 (15:39→23:47)
[2017-03-04 16:06] LABS: ALBUMIN 3.7 GM/DL (3.2-4.5); BILIRUBIN,TOTAL 0.4 MG/DL (0.1-1.0); CALCIUM 10.7 MG/DL (8.5-10.1); CREATININE SERUM 1.1 MG/DL (0.60-1.30); POTASSIUM 4.2 MMOL/L (3.6-5.0); TOTAL PROTEIN 7.1 GM/DL (6.4-8.2)
[2017-03-04 16:14] VITALS: BP 138/72
--- NOTE | 2017-03-04 16:43 | History & Physical-Hospitalist ---
HPI History of Present Illness: HPI/Chief Complaint Pt is a 66yoCF with a PMH of Chronic respiratory failure due to COPD, HTN, and restless leg syndrome who per her report presented today for routine lab work in preparation for a visit with Dr. Dorman next week. She denies any complaints. She denies any worsening SOB, wheezing, cough, falls. Upon further question she does admit to "feeling crazy" and not being about to think straight for a few days. Per report given to Dr. Dorman from her drying can worker she has been more short of breath lately and have been falling frequently. Her drying can worker was concerned about her safety as she lives at home alone. An ABG done today at an outside facility showed a pH of 7.32 and with a pCO2 of 84. She was direct admitted for acute on chronic respiratory failure with hypercapnia. Source: patient, RN/MD Date Seen 03/04/17 Time Seen by Provider: 16:30 Attending Physician Kaleigh Salas MD PCP Deloris Spencer MD Referring Physician Date of Admission Mar 04, 2017 at 2:58 pm Home Medications & Allergies Home Medications Reviewed patient Home Medication Reconciliation Form Allergies Allergies Coded Allergies No Known Drug Allergies (Unverified02/08/11) Past Ciwqlnf-Zprxtb-Cdlgnk Hx Patient Social History Marrital Status: Alcohol Use: Denies Use Smoking Status: Former Smoker Recent Hopitalizations: Yes Immunizations Up To Date Date of Pneumonia Vaccine: Mar 06, 2012 Date of Influenza Vaccine: Mar 06, 2012 Surgeries No Respiratory Yes COPD Cardiovascular Yes Hypertension Neurological No Reproductive System Hx Reproductive Disorders: No Sexually Transmitted Disease: No Genitourinary Yes Kidney Stones Gastrointestinal Yes Gastroesophageal Reflux Musculoskeletal No Endocrine History of Endocrine Disorders: No HEENT History of HEENT Disorders: No Cancer No Psychosocial History of Psychiatric Problem: No Integumentary History of Skin or Integumenta: No Blood Transfusions History of Blood Disorders: No Family Medical History Significant Family History: No Pertinent Family Hx Review of Systems Constitutional: No chills, No fever EENTM: No blurred vision, No double vision, No nose congestion, No throat pain Respiratory: No cough, No dyspnea on exertion, No short of breath Cardiovascular: No chest pain, No edema, No palpitations Gastrointestinal: No abdominal pain, No constipation, No diarrhea, No nausea, No vomiting Genitourinary: No dysuria, No frequency Musculoskeletal: No joint pain, No muscle pain Skin: No lesions, No rash Psychiatric/Neurological: Denies Headache, Denies Numbness, Denies Tingling Physical Exam Physical Exam Vital Signs Vital Sign - Last 12Hours 03/04/17 03/04/17 15:47 16:14 Temp 98.4 Pulse 78 Resp 20 B/P (MAP) 138/72 Pulse Ox 99 O2 Delivery Nasal Cannula O2 Flow Rate 4.00 Capillary Refill : General Appearance: No Apparent Distress, WD/WN HEENT: PERRL/EOMI, Moist Mucous Membranes Neck: Non Tender, Supple Respiratory: No Accessory Muscle Use, No Respiratory Distress, Decreased Breath Sounds Cardiovascular: Regular Rate, Rhythm, No Murmur Gastrointestinal: Normal Bowel Sounds, Non Tender, Soft Extremity: No Calf Tenderness, Pedal Edema Neurologic/Psychiatric: Alert, Oriented x3, Normal Mood/Affect Skin: Normal Color, Warm/Dry Results Results/Procedures Lab Laboratory Tests 03/04/17 15:30 Assessment/Plan Admission Diagnosis Acute on Chronic Respiratory failure Diagnosis/Problems Diagnosis/Problems (1) Acute and chronic respiratory failure with hypercapnia Status: Acute Assessment & Plan: hypercapnia noticed on ABG (though likely has baseline compensated respiratory acidosis due to advanced COPD) Will start on Solu Medrol 40mg IV Q6 Duonebs scheduled and prn Titrate oxygen to keep sats >90 BiPAP prn (2) COPD (chronic obstructive pulmonary disease) Status: Acute Assessment & Plan: baseline oxygen requirement managed as above (3) Essential (primary) hypertension Assessment & Plan: Well controlled currently Unsure of home med, will hold and monitor (4) Hypercalcemia Status: Acute Assessment & Plan: Mild, recheck in AM (5) Restless leg syndrome Assessment & Plan: Continue Requip (6) Prophylactic measure Assessment & Plan: Lovenox Saline lock Regular Diet KALEIGH SALAS MD Mar 04, 2017 4:43 pm
[2017-03-04] MEDS: ENOXAPARIN 40 MG/0.4 ML (LOVENOX) SYR SC SCH (17:28)
[2017-03-04] MEDS: RT-ALBUTEROL/IPRATROPIUM 3 ML (DUONEB) VIAL INH SCH ×2 (18:16→22:48)
[2017-03-04 19:48] VITALS: BP 125/65
[2017-03-04 22:45] VITALS: BP 138/72
[2017-03-05] VITALS (7 sets, daily range): BP systolic 120–158; BP diastolic 62–73
[2017-03-05] MEDS: RT-ALBUTEROL/IPRATROPIUM 3 ML (DUONEB) VIAL INH SCH ×6 (02:23→22:00)
[2017-03-05] MEDS: methylPREDNISolone 40 MG/ML (Solu-MEDROL) VIAL IV SCH ×4 (04:10→21:00)
[2017-03-05 06:30] LABS: BASOPHILS % (AUTO) 0 % (0-10); EOSINOPHILS % (AUTO) 0 % (0-10); LYMPHOCYTES # (AUTO) 0.5 X 10^3 (1.0-4.0); LYMPHOCYTES % (AUTO) 7 % (12-44); MEAN CORPUSCULAR HEMOGLOBIN 31 PG (25-34); MEAN CORPUSCULAR HGB CONC 30 G/DL (32-36); MEAN CORPUSCULAR VOLUME 105 FL (80-99); MEAN PLATELET VOLUME 11.6 FL (7.4-10.4); MONOCYTES # (AUTO) 0.1 X 10^3 (0.0-1.0); MONOCYTES % (AUTO) 2 % (0-12); NEUTROPHILS # (AUTO) 6.9 X 10^3 (1.8-7.8); NEUTROPHILS % (AUTO) 91 % (42-75); PLATELET COUNT 201 10^3/uL (130-400); RED BLOOD COUNT 3.59 10^6/uL (4.35-5.85); RED CELL DISTRIBUTION WIDTH 13.7 % (10.0-14.5); WHITE BLOOD COUNT 7.6 10^3/uL (4.3-11.0)
[2017-03-05 06:53] LABS: CALCIUM 10.7 MG/DL (8.5-10.1); CREATININE SERUM 0.94 MG/DL (0.60-1.30); POTASSIUM 5.3 MMOL/L (3.6-5.0)
--- NOTE | 2017-03-05 08:52 | Pulmonary Consultation ---
History of Present Illness History of Present Illness Date of Consultation 03/05/17 08:45 Time Seen by Provider: 08:45 Date of Admission History of Present Illness 66yo with PMH of COPD and chronic respiratory failure presented as direct admit from my office. Pt had out patient ABG that showed a PH of 7.32 and PC02 of 84. I spoke with patients caregiver who states pt has been falling frequently. Last fall 1 wk ago she did not hit her head. Pt has also been more confused. Pt does admit to worsening SOB. I am consulted for pulmonary management. Allergies and Home Medications Allergies Coded Allergies: No Known Drug Allergies (Unverified , 02/08/11) Home Medications Aspirin 325 Mg Tablet.dr, 325 MG PO DAILY, (Reported) Bisacodyl 10 Mg Supp.rect, 10 MG RC DAILY PRN for CONSTIPATION, (Reported) Bisacodyl 5 Mg Tablet.dr, 5 MG PO BID, (Reported) Carvedilol 6.25 Mg Tablet, 6.25 MG PO BID, (Reported) Cefdinir 300 Mg Capsule, 300 MG PO BID PRN, #14 Prescribed by: LUIS HERNÁNDEZ on 06/02/16 1149 Escitalopram Oxalate 10 Mg Tablet, 10 MG PO HS, (Reported) Furosemide 40 Mg Tablet, 40 MG PO DAILY, (Reported) Guaifenesin 600 Mg Tab.er.12h, 1,200 MG PO BID, (Reported) TAKES 2 (600MG) TABLETS Insulin Aspart 300 Units/3 Ml Solution, SQ ACHS, (Reported) 0-150 = 0 UNITS 151-199= 1 UNIT 200-249= 2 UNITS 250-299= 3 UNITS 300-349= 4 UNITS 350-399= 5 UNITS 400+ = CALL PHYSICIAN Ipratropium/Albuterol Sulfate 3 Ml Ampul.neb, 3 ML IH Q4H PRN for SHORTNESS OF BREATH, (Reported) Lisinopril 5 Mg Tablet, 5 MG PO DAILY, (Reported) Mometasone/Formoterol 13 Gm Hfa.aer.ad, 1 PUFF IH BID, (Reported) Pantoprazole Sodium 40 Mg Tablet.dr, 40 MG PO BID, (Reported) Pravastatin Sodium 40 Mg Tablet, 40 MG PO HS, (Reported) Prednisone 10 Mg Tab, 10 MG PO UD, (Reported) TAKE 3 (10MG) TABLETS DAILY X 3 DAYS THEN, TAKE 2 (10MG) TABLETS DAILY X 3 DAYS THEN, TAKE 1 (10MG) TABLET DAILY X 3 DAYS START DATE 05-30-16 Ropinirole HCl 1 Mg Tablet, 1 MG PO HS, (Reported) Sennosides/Docusate Sodium 1 Each Tablet, 3 TAB PO HS, (Reported) Tiotropium [place] 18 Mcg Cap.w.dev, 1 CAP IH DAILY, (Reported) Tramadol HCl 50 Mg Tablet, 50 MG PO Q6H PRN for PAIN, (Reported) Past Rmrthoj-Tovxnk-Fwkudk Hx Patient Social History Alcohol Use: Denies Use Recreational Drug Use: No Smoking Status: Former Smoker Former Smoker, Quit: Feb 23, 2007 Recent Foreign Travel: No Contact w/Someone Who Travel: No Recent Infectious Disease Expo: No Recent Hopitalizations: Yes Immunizations Up To Date Date of Pneumonia Vaccine: Mar 06, 2012 Date of Influenza Vaccine: Feb 27, 2017 Seasonal Allergies Seasonal Allergies: No Surgeries History of Surgeries: No Respiratory History of Respiratory Disorde: Yes Respiratory Disorders: Sleep Apnea, COPD Currently Using BIPAP: No Cardiovascular History of Cardiac Disorders: Yes Cardiac Disorders: Hypertension Neurological History of Neurological Disord: No Reproductive System Hx Reproductive Disorders: No Sexually Transmitted Disease: No HIV/AIDS: No Genitourinary History of Genitourinary Disor: Yes Genitourinary Disorders: Kidney Stones Gastrointestinal History of Gastrointestinal Di: Yes Gastrointestinal Disorders: Gastroesophageal Reflux Musculoskeletal History of Musculoskeletal Dis: Yes Musculoskeletal Disorders: Arthritis Endocrine History of Endocrine Disorders: No HEENT History of HEENT Disorders: No Cancer History of Cancer: No Psychosocial History of Psychiatric Problem: No Behavioral Health Disorders: Sleep Difficulties, Anxiety, Depression Integumentary History of Skin or Integumenta: No Skin/Integumentary Disorders: Psoriasis Blood Transfusions History of Blood Disorders: No Family Medical History Significant Family History: No Pertinent Family Hx Family Medial History: Alcoholism Cardiovascular disease Colon cancer Hypertension Review of Systems Time Seen by Provider: 08:55 Constitutional: Weakness, Malaise, No: Fever, Chills, Sweats, Other Eyes: No: Pain, Vision change, Conjunctivae inflammation, Eyelid inflammation, Other, Redness ENT: Nose congestion, No: Ear pain, Ear discharge, Nose pain, Nose discharge, Mouth pain, Mouth swelling, Throat pain, Throat swelling, Other Respiratory: Cough, Dry, Shortness of breath, SOB with excertion, Wheezing, Wheezing, No: Hemoptysis, Pleuritic Pain, Sputum, Other Cardiovascular: Palpitations, Orthopnea, Paroxysmal Noc. Dyspnea, Lt Headedness , No: Chest Pain, Edema, Other Gastrointestinal: No: Nausea, Vomiting, Abdominal Pain, Diarrhea, Constipation , Melena, Hematochezia, Other Neurological: Weakness, Incoordination Exam Exam Vital Signs Date Time Temp Pulse Resp B/P (MAP) Pulse Ox O2 Delivery O2 Flow Rate FiO2 03/05/17 08:02 86 03/05/17 06:04 85 30 99 40.00 03/05/17 04:00 97.9 68 21 122/70 95 NIV CPAP 4.00 03/05/17 02:23 79 14 98 40.00 03/05/17 01:00 70 03/05/17 00:26 97.6 78 26 120/62 94 NIV CPAP 4.00 03/04/17 22:45 82 26 98 40.00 03/04/17 20:00 Nasal Cannula 4.00 03/04/17 19:48 99.1 79 18 125/65 92 Nasal Cannula 4.00 03/04/17 19:00 114 03/04/17 18:16 99 Nasal Cannula 4.00 03/04/17 16:27 95 Room Air 03/04/17 16:14 98.4 82 20 138/72 Nasal Cannula 4.00 03/04/17 15:47 99 Nasal Cannula 4.00 03/04/17 15:47 78 99 General Appearance: No Apparent Distress, WD/WN HEENT: PERRL/EOMI, Moist Mucous Membranes Neck: Non Tender, Supple Respiratory: No Accessory Muscle Use, No Respiratory Distress, Decreased Breath Sounds Cardiovascular: Regular Rate, Rhythm, No Murmur Extremity: No Calf Tenderness, Pedal Edema Neurologic/Psychiatric: Alert, Oriented x3, Normal Mood/Affect Skin: Normal Color, Warm/Dry Results Lab Laboratory Tests 03/04/17 15:30 03/05/17 06:05 Assessment/Plan Assessment/Plan Acute on chronic respiratory failure -Pt will benefit from vent to mask -will have [facility] arrange for vent to mask COPD SVNS Weakness/fall risk -PT/OT -Pt lives at home alone and has home care -Consider ECF placement vs rehab vs assisted living 254 Diagnosis/Problems Problems/Diagonsis (1) Acute and chronic respiratory failure with hypercapnia Status: Acute Assessment & Plan: hypercapnia noticed on ABG (though likely has baseline compensated respiratory acidosis due to advanced COPD) Will start on Solu Medrol 40mg IV Q6 Duonebs scheduled and prn Titrate oxygen to keep sats >90 BiPAP prn (2) COPD (chronic obstructive pulmonary disease) Status: Acute Assessment & Plan: baseline oxygen requirement managed as above (3) Essential (primary) hypertension Assessment & Plan: Well controlled currently Unsure of home med, will hold and monitor (4) Hypercalcemia Status: Acute Assessment & Plan: Mild, recheck in AM (5) Restless leg syndrome Assessment & Plan: Continue Requip (6) Prophylactic measure Assessment & Plan: Lovenox Saline lock Regular Diet Clinical Quality Measures DVT/VTE Risk/Contraindication: Risk Factor Score Per Nursin RFS Level Per Nursing on Admit: 4+=Very High CHRISTEL CARUSO DO Mar 05, 2017 08:52
--- NOTE | 2017-03-05 10:02 | Progress Note-Hospitalist ---
Subjective HPI/CC On Admission Date Seen by Provider: Mar 05, 2017 Time Seen by Provider: 09:58 Pt is a 66yoCF with a PMH of Chronic respiratory failure due to COPD, HTN, and restless leg syndrome who per her report presented today for routine lab work in preparation for a visit with Dr. Dorman next week. She denies any complaints. She denies any worsening SOB, wheezing, cough, falls. Upon further question she does admit to "feeling crazy" and not being about to think straight for a few days. Per report given to Dr. Dorman from her bulk sealer she has been more short of breath lately and have been falling frequently. Her bulk sealer was concerned about her safety as she lives at home alone. An ABG done today at an outside facility showed a pH of 7.32 and with a pCO2 of 84. She was direct admitted for acute on chronic respiratory failure with hypercapnia. Subjective/Events-last exam Reports feeling well this morning. On BiPAP. No complaints. Discussed plan for discharge and she is very hesitant to not return home as she has two dogs there. Objective Exam Vital Signs Vital Sign - Last 12Hours 03/04/17 03/04/17 15:47 16:14 Temp 98.4 Pulse 78 Resp 20 B/P (MAP) 138/72 Pulse Ox 99 O2 Delivery Nasal Cannula O2 Flow Rate 4.00 Capillary Refill : General Appearance: No Apparent Distress, WD/WN Respiratory: No Accessory Muscle Use, No Respiratory Distress, Decreased Breath Sounds Cardiovascular: Regular Rate, Rhythm, No JVD, No Murmur Gastrointestinal: Normal Bowel Sounds, Non Tender, Soft Neurologic/Psychiatric: Alert, Oriented x3 Results/Procedures Lab Laboratory Tests 03/05/17 06:05 03/05/17 10:45 Assessment/Plan Assessment and Plan Assess & Plan/Chief Complaint Acute on Chronic Respiratory failure Diagnosis/Problems Diagnosis/Problems (1) Acute and chronic respiratory failure with hypercapnia Status: Acute Assessment & Plan: hypercapnia noticed on yesterday's ABG (though likely has baseline compensated respiratory acidosis due to advanced COPD) Cont Solu Medrol 40mg IV Q6 Duonebs scheduled and prn Titrate oxygen to keep sats >90 BiPAP prn (2) COPD (chronic obstructive pulmonary disease) Status: Acute Assessment & Plan: baseline oxygen requirement managed as above (3) Essential (primary) hypertension Assessment & Plan: Well controlled currently Unsure of home med, will hold and monitor (4) Hypercalcemia Status: Acute Assessment & Plan: Mild, stable this AM Will get PTH intact, ionized calcium Unlikely to be cause of mental status changes (5) Hyperkalemia Status: Acute Assessment & Plan: Very mild, trend getting regular albuterol (6) Restless leg syndrome Assessment & Plan: Continue Requip (7) Prophylactic measure Assessment & Plan: Lovenox Saline lock Regular Diet KALEIGH HUGO MD Mar 05, 2017 10:02 am
[2017-03-05 11:12] LABS: CALCIUM 10.5 MG/DL (8.5-10.1); POTASSIUM 4.8 MMOL/L (3.6-5.0)
[2017-03-05] MEDS ORDERED: TIOT18CA2 IH (13:30)
[2017-03-05] MEDS ORDERED: FURO20TA4 PO (13:30)
[2017-03-05] MEDS ORDERED: SENN-140 PO (13:30)
[2017-03-05] MEDS ORDERED: DOCU-143 PO (13:30)
[2017-03-05] MEDS ORDERED: OMEP20CA12 PO (13:30)
[2017-03-05] MEDS ORDERED: MELO15TA14 PO (13:30)
[2017-03-05] MEDS ORDERED: RT-ALBUINH IH (13:30)
[2017-03-05] MEDS ORDERED: BUDE10.2 IH (13:30)
[2017-03-05] MEDS ORDERED: POTA10TA10 PO (13:30)
[2017-03-05] MEDS ORDERED: POLY17PO6 PO (13:31)
[2017-03-05] MEDS ORDERED: LACT10SO5 PO (13:31)
[2017-03-05] MEDS ORDERED: FLUT9.9S NS (13:31)
[2017-03-05] MEDS: ENOXAPARIN 40 MG/0.4 ML (LOVENOX) SYR SC SCH (17:29)
[2017-03-05] MEDS: POLYETHYLENE GLYCOL 17 GM (MIRALAX) PACK PO PRN (17:30)
[2017-03-05] MEDS: SENNOSIDES 8.6 MG (SENOKOT) TAB PO PRN (17:30)
[2017-03-05] MEDS ORDERED: rOPINIRole 1 MG (REQUIP) TABLET PO SCH (21:00)
[2017-03-05 23:50] LABS: CALCIUM IONIZED 1.32 mmol/L (1.16-1.32); CORRECTED IONIZED CALCIUM 1.34 mmol/L (1.16-1.32)
[2017-03-06 00:17] VITALS: BP 140/67
[2017-03-06] MEDS: RT-ALBUTEROL/IPRATROPIUM 3 ML (DUONEB) VIAL INH SCH ×3 (01:55→10:30)
[2017-03-06] MEDS: methylPREDNISolone 40 MG/ML (Solu-MEDROL) VIAL IV SCH ×2 (03:02→08:05)
[2017-03-06 04:30] VITALS: BP 138/72
[2017-03-06 08:00] VITALS: BP 155/69
[2017-03-06] MEDS: SENNOSIDES 8.6 MG (SENOKOT) TAB PO PRN (08:05)
[2017-03-06] MEDS: POLYETHYLENE GLYCOL 17 GM (MIRALAX) PACK PO PRN (08:05)
[2017-03-06] MEDS ORDERED: ACETAMINOPHEN 500 MG TAB (TYLENOL) PO PRN (08:15)
[2017-03-06] MEDS ORDERED: CALCIUM CARBONATE 500 MG (TUMS) TAB.CHEW PO NR (08:15)
--- NOTE | 2017-03-06 08:38 | Pulmonary Progress Note ---
Subjective Time Seen by Provider: 08:37 Subjective/Events-last exam Pt is doing better. Exam Exam Vital Signs Date Time Temp Pulse Resp B/P (MAP) Pulse Ox O2 Delivery O2 Flow Rate FiO2 03/06/17 07:06 91 Nasal Cannula 4.00 03/06/17 04:30 98.2 67 20 138/72 96 Nasal Cannula 4.00 03/06/17 01:53 80 17 95 40.00 03/06/17 01:11 90 33 94 40.00 03/06/17 01:00 80 03/06/17 00:17 98.2 76 20 140/67 94 Nasal Cannula 4.00 03/05/17 22:17 82 34 95 40.00 03/05/17 20:05 98.1 95 18 126/73 92 Nasal Cannula 4.00 03/05/17 19:50 92 Nasal Cannula 4.00 03/05/17 19:27 92 Nasal Cannula 5.00 03/05/17 19:00 83 03/05/17 16:00 98.5 97 18 140/65 93 Nasal Cannula 4.00 03/05/17 14:18 89 Nasal Cannula 4.00 03/05/17 13:00 95 03/05/17 12:00 99.2 94 20 142/65 93 Nasal Cannula 4.00 03/05/17 10:29 92 Nasal Cannula 4.00 General Appearance: No Apparent Distress, WD/WN HEENT: PERRL/EOMI, Moist Mucous Membranes Neck: Non Tender, Supple Respiratory: No Accessory Muscle Use, No Respiratory Distress, Decreased Breath Sounds Cardiovascular: Regular Rate, Rhythm, No JVD, No Murmur Extremity: No Calf Tenderness, Pedal Edema Neurologic/Psychiatric: Alert, Oriented x3 Skin: Normal Color, Warm/Dry Results Lab Laboratory Tests 03/04/17 15:30 03/05/17 06:05 03/05/17 10:45 Assessment/Plan Assessment/Plan Acute on chronic respiratory failure -Pt will benefit from vent to mask - [facility] will arrange for vent to mask COPD SVNS Weakness/fall risk -pt does not want ECF or senior care. 232 Clinical Quality Measures DVT/VTE Risk/Contraindication: Risk Factor Score Per Nursin RFS Level Per Nursing on Admit: 4+=Very High CHRISTEL CARUSO DO Mar 06, 2017 08:38
[2017-03-06] MEDS ORDERED: ASPIRIN E.C. 325 MG (ECOTRIN) TABLET PO SCH (09:00)
[2017-03-06] MEDS ORDERED: PRED10TA22 PO (10:00)
--- NOTE | 2017-03-06 10:03 | D/C HH Face to Face Order ---
D/C Face to Face Orders Instructions for Patient Patient Instructions/FollowUp: Please continue to take your medications as written. It is important to follow up with Dr. Spencer and with Dr. Dorman to follow up on your hospital stay. Should your symptoms return or worsen please seek evaluation. Physician to follow Patient: Dr. Spencer, Dr. Dorman Discharge Diet for Home: Regular Diet Patient Data-Allergies,Ht & Wt Patient Allergies: Coded Allergies: No Known Drug Allergies (Unverified , 02/08/11) Height (Feet): 5 Height (Inches): 6.00 Weight (Pounds): 257 Weight (Ounces): 6.0 Home Health Need/Face to Face Date of Face to Face: Mar 06, 2017 Clinical Findings: Shortness of breath I have seen Pt [id number]: Yes Discharged To: Home Diagnosis/Conditions: Chronic Respiratory Failure Problems/Diagnosis/Condition: Patient is Homebound due to: Shortness of breath/distress Homebound Status Due to the above stated illness, injury or surgical procedure (medical condition or diagnosis) and associated clinical findings, the patient is homebound because of his/her inability to leave home except with aid of a supportive device and/or person AND leaving the home requires a considerable and taxing effort or is medically contraindicated. Pt req the following assistanc: Aid of another person Home Health Nursing Orders Home Health Services Order: Nursing Services, [employer]-Evaluate & Treat, Physical Therapy-Evaluate & Treat Home Health Infusion Therapy Line Start Date: Mar 06, 2017 Line Start Time: 0300 Line Type: Saline Lock Site Location: Hand Therapy Orders Therapy Orders: Physical Therapy, PT to assess for OT Therapy Specific Orders: Teach strategies/cognitive deficits, Teach enviro modifications/safety, Increase strength/endurance, Provider maintenance therapy Certify Stmt I certify that this patient is under my care and that I, a nurse practitioner or a physician; a assistant professor of religion working with me, had a face to face encounter that - meets the physician face to face encounter requirements with this patient as dated. KALEIGH HUGO MD Mar 06, 2017 10:03
--- NOTE | 2017-03-06 10:09 | Discharge Summary-Hospitalist ---
Diagnosis/Chief Complaint Date of Admission Mar 04, 2017 at 14:58 Date of Discharge Discharge Date: Mar 06, 2017 Admission Diagnosis Acute on Chronic Respiratory failure Discharge Diagnosis Acute on Chronic Respiratory failure (1) Acute and chronic respiratory failure with hypercapnia Status: Acute Assessment & Plan: hypercapnia noticed on outpatient ABG (though likely has baseline compensated respiratory acidosis due to advanced COPD) Responded well to IV SoluMedrol, transition to prednisone taper (slow) Duonebs scheduled and prn Titrate oxygen to keep sats >90 BiPAP prn Will arrange for her to get vent to mask with DME per Dr. Dorman's rec (2) COPD (chronic obstructive pulmonary disease) Status: Acute Assessment & Plan: baseline oxygen requirement managed as above (3) Essential (primary) hypertension Assessment & Plan: Well controlled currently Has not filled Lisinopril in months so will DC (4) Hypercalcemia Status: Acute Assessment & Plan: Mild, stable this AM Will get PTH intact, ionized calcium- these are pending as of discharge and will need to be follow up as an outpatient (5) Hyperkalemia Status: Resolved Assessment & Plan: Resolved (6) Restless leg syndrome Assessment & Plan: Continue Requip (7) Prophylactic measure Assessment & Plan: Lovenox Saline lock Regular Diet Discharge Summary Consultations Dr. Dorman- [facility] Discharge Physical Examination Allergies: Coded Allergies: No Known Drug Allergies (Unverified , 02/08/11) Vitals & I&Os Vital Signs Date Time Temp Pulse Resp B/P (MAP) Pulse Ox O2 Delivery O2 Flow Rate FiO2 03/06/17 08:00 98.2 90 20 155/69 97 Nasal Cannula 4.00 Hospital Course Pt is a 66yoCF with a PMH of COPD and secondary chronic respiratory failure with a 4lpm oxygen requirement. She was found to have worsening hypercapnia associated with confusion and falls as an outpatient and was direct admitted from Dr Dorman's office for further management. She improved with treatment of COPD with IV steroids and SVNs. She returned to her baseline 4lpm NC and was discharged home with prednisone taper. While admitted she was found to have very mild hypercalcemia a PTH intact and Ionized calcium were ordered but were pending at discharge. She will need this follow up by her PCP. Labs (last 24 hrs) Laboratory Tests 03/05/17 10:45: Potassium Level 4.8, Calcium Level 10.5H Discharge Home Medications: Active Scripts Active Prednisone 10 Mg Tab.ds.pk 10 Mg PO DAILY Take 6 tabs(60mg)daily,decrease by 1 tab(10mg)every other day. Reported Lactulose 10 Gm/15 Ml Solution 15-30 Ml PO DAILY PRN Flonase Allergy Relief (Fluticasone Propionate) 9.9 Ml [place].susp 2 Sprays NS DAILY PRN Miralax (Polyethylene Glycol 3350) 17 Gm Powd.pack 17 Gm PO DAILY PRN Senna (Sennosides) 8.6 Mg Tablet 8.6 Mg PO DAILY PRN Mobic (Meloxicam) 15 Mg Tablet 15 Mg PO DAILY Colace (Docusate Sodium) 100 Mg Capsule 100 Mg PO DAILY Omeprazole 20 Mg Capsule.dr 20 Mg PO BID LAST FILLED #60 01-13-17 Spiriva (Tiotropium [place]) 1 Inh Aerp 1 Cap IH DAILY Proair Hfa (Albuterol Sulfate) 1 Puff Puff 2 Puff IH Q4H PRN 1 PUFF = 90 MCG Symbicort 160-4.5 Mcg Inhaler (Budesonide/Formoterol Fumarate) 10.2 Gm Hfa.aer.ad 2 Puff IH BID Potassium Chloride 10 Meq Tablet.er 10 Meq PO DAILY LAST FILLED #30 07-19-16 Furosemide 20 Mg Tablet 20 Mg PO DAILY LAST FILLED #30 12-12-16 Tramadol HCl 50 Mg Tablet 50 Mg PO Q8H PRN Requip (Ropinirole HCl) 1 Mg Tablet 1 Mg PO HS Pravastatin Sodium 40 Mg Tablet 40 Mg PO HS LAST FILLED #30 IN JULY Lisinopril 5 Mg Tablet 5 Mg PO DAILY LAST FILLED #30 MAY Escitalopram Oxalate 10 Mg Tablet 10 Mg PO HS LAST FILLED #30 01-10-17 Aspirin EC (Aspirin) 325 Mg Tablet.dr 325 Mg PO DAILY Instructions to patient/family Please see electronic discharge instructions given to patient. Clinical Quality Measures DVT/VTE Risk/Contraindication: Risk Factor Score Per Nursin RFS Level Per Nursing on Admit: 4+=Very High Copy Copies To 1: CHRISTEL DORMAN DO; MEDARDO SINGH MD, KATELYN M MD Mar 06, 2017 10:09
[2017-03-06 12:00] VITALS: BP 148/66
[2017-03-06 16:52] LABS: CALCIUM PARA THYROID HORMONE 10.4 mg/dL (8.5-10.5); CALCIUM PH 7.43
== END 2017-03-06 14:56 | disposition home health service (06) | DRG 189 ==
LOC: 4TH 14:58
PROVIDERS: ADMIT Family Medicine; ATTEND Family Medicine
DX: J96.22 Acute and chronic respiratory failure with hypercapnia (principal); J44.9 Chronic obstructive pulmonary disease, unspecified; I10 Essential (primary) hypertension; E83.52 Hypercalcemia; G25.81 Restless legs syndrome; K21.9 Gastro-esophageal reflux disease without esophagitis; R29.6 Repeated falls; Z87.891 Personal history of nicotine dependence; Z60.2 Problems related to living alone; Z87.442 Personal history of urinary calculi; G47.33 Obstructive sleep apnea (adult) (pediatric); F41.9 Anxiety disorder, unspecified; F32.9 Major depressive disorder, single episode, unspecified; E87.5 Hyperkalemia
CPT/HCPCS: 36415; 80048; 80053; 82310; 82330; 83970; 84132; 85025; 94640; 94660; 94760; 94761

== ENCOUNTER → 2017-03-04 | Outpatient (CLI) | payer MEDICARE ==
[~2017-03-04] MED LIST changes: +BUDE10.2 IH; +DOCU-143 PO; +FLUT9.9S NS; +FURO20TA4 PO; +LACT10SO5 PO; +MELO15TA14 PO; +OMEP20CA12 PO; +POLY17PO6 PO; +POTA10TA10 PO; +PRED10TA22 PO; +RT-ALBUINH IH; +SENN-140 PO; +TIOT18CA2 IH
[2017-03-04 11:29] LABS: ABG BASE EXCESS 18.6 MMOL/L (-2.5-2.5); ABG OXYGEN SATURATION 43 % (94-100); ABG TCO2 48.1 MMOL/L (21.0-31.0)
[2017-03-04 11:34] LABS: ABG PCO2 88 MMHG (35-45); ABG PH 7.33 (7.37-7.43); ABG PO2 29 MMHG (79-93)
[2017-03-04 11:35] LABS: ABG HCO3 45 MMOL/L (23-27); PATIENT TEMP 98.2
[2017-03-04 12:01] LABS: ABG BASE EXCESS 16.5 MMOL/L (-2.5-2.5); ABG OXYGEN SATURATION 99 % (94-100); ABG PO2 112 MMHG (79-93); ABG TCO2 46.4 MMOL/L (21.0-31.0)
[2017-03-04 12:05] LABS: ABG PH 7.32 (7.37-7.43)
[2017-03-04 12:06] LABS: ABG HCO3 44 MMOL/L (23-27); ABG PCO2 84 MMHG (35-45)
[2017-03-04 12:07] LABS: PATIENT TEMP 95.2
== END ==
LOC: LAB 10:51
PROVIDERS: ATTEND Nurse Practitioner Family
DX: J96.20 Acute and chronic respiratory failure, unspecified whether with hypoxia or hypercapnia (principal); J44.9 Chronic obstructive pulmonary disease, unspecified
CPT/HCPCS: 82805

== ENCOUNTER → 2017-07-31 | Outpatient (CLI) | payer MEDICARE ==
[~2017-07-31] MED LIST changes: +BUDE10.2 IH; +DOCU-143 PO; +FLUT9.9S NS; +FURO20TA4 PO; +IOHEXOL 350 MG/ML 150 ML (OMNIPAQUE 350) VIAL IV ONE; +LACT10SO5 PO; +MELO15TA14 PO; +NS 250 ML (IVPB) BAG IV ONE; +OMEP20CA12 PO; +POLY17PO6 PO; +POTA10TA10 PO; +PRED10TA22 PO; +RT-ALBUINH IH; +SENN-140 PO; +TIOT18CA2 IH
[2017-07-31 12:30] LABS: BUN/CREATININE RATIO 29; CREATININE SERUM 0.89 MG/DL (0.60-1.30); GFR ESTIMATED > 60
--- NOTE | 2017-07-31 14:21 | Diagnostic Imaging Report ---
PROCEDURE: CT angiography of the chest with contrast. TECHNIQUE: Multiple contiguous axial images were obtained through the chest after uneventful bolus administration of intravenous contrast. Reconstructed CTA MIP acquisitions were also performed. INDICATION: COPD and fatigue with hypoxemia. COMPARISON: No prior studies are available for comparison. FINDINGS: The heart is enlarged. The main pulmonary artery as well as the proximal right and left pulmonary artery are moderately dilated, perhaps owing to component of pulmonary hypertension. No definite filling defects are seen to suggest pulmonary embolism. The distal branches are more limited in evaluation due to motion artifact. The thoracic aorta is calcified but nonaneurysmal. No dissection is identified. No pericardial or pleural fluid is detected. There are centrilobular emphysematous changes in the upper lobes. There are areas of parenchyma consolidation in the lingula, left lower lobe, as well as the right lower lobe with air bronchograms. The upper abdomen is unremarkable. IMPRESSION: 1. There is patient respiratory motion, however, no central pulmonary emboli are identified. There is some dilatation to the pulmonary arteries, perhaps owing to pulmonary hypertension. 2. Bibasilar parenchymal consolidation and air bronchograms, suggestive of pneumonia. Dictated by: Dictated on workstation # [id number]
== END ==
LOC: RAD 11:55
PROVIDERS: ATTEND Nurse Practitioner Family
DX: J44.9 Chronic obstructive pulmonary disease, unspecified (principal); J18.1 Lobar pneumonia, unspecified organism
CPT/HCPCS: 36415; 71275; 82565; 84520

== ENCOUNTER 2017-09-08 09:15 | Outpatient (RCR) | payer MEDICARE ==
[~2017-09-08] VITALS: Ht 170.2 cm; Wt 117.5 kg
[~2017-09-08 09:15] MED LIST changes: -IOHEXOL 350 MG/ML 150 ML (OMNIPAQUE 350) VIAL IV ONE; -IPRA3AMP IH; +IPRA3AMP31 IH; -NS 250 ML (IVPB) BAG IV ONE
[2017-09-08 09:36] VITALS: BP 100/50
[2017-10-16] MEDS ORDERED: OMEP40CA36 PO (12:12)
[2017-10-16] MEDS ORDERED: ALBU2.5V4 NEB (12:12)
[2017-10-16] MEDS ORDERED: POTA10TA10 PO (12:12)
[2017-10-16] MEDS ORDERED: ROPI1TAB2 PO (12:12)
[2017-10-16] MEDS ORDERED: L.AC1CAP6 PO (12:12)
[2017-10-16] MEDS ORDERED: FURO20TA4 PO (12:12)
[2017-10-16] MEDS ORDERED: ENAL5TAB PO (12:12)
[2017-10-16] MEDS ORDERED: LISI-556 PO (12:20)
[2017-10-16] MEDS ORDERED: BUSP15TA60 PO (12:20)
== END 2017-12-07 | disposition home or self-care (01) ==
LOC: PULM 09:15
PROVIDERS: ATTEND Nurse Practitioner Family
DX: J44.9 Chronic obstructive pulmonary disease, unspecified (principal); R09.02 Hypoxemia; R06.00 Dyspnea, unspecified

== ENCOUNTER 2017-09-30 10:28 | Emergency (ER) | payer MEDICARE ==
[~2017-09-30] VITALS: Ht 170.2 cm; Wt 127.0 kg
[~2017-09-30 10:28] MED LIST changes: +IPRA3AMP IH; -IPRA3AMP31 IH
--- OUTSIDE RECORDS SUMMARY | 2017-09-30 10:34 | XMS REPORT | Clinical Summary ---
Author Author [facility] Organization [facility] Address Unknown Phone Unavailable Care Team Providers Care [employer] Technician Name Role Phone Saroj Loza PA-C Unavailable Darryl Li MD Unavailable Chang Wilkerson MD PCP Source Comments Some departments are not documenting in the electronic medical record. If you do not see the information that you expected, contact Release of Information in the Health Information Management department at [phone] for further assistance in locating additional records.[facility] Allergies No Known Allergies Current [...] Taken Blood Pressure 153/71 07/22/2010 3:20 AM [employer] Pulse 61 07/22/2010 3:20 AM [employer] Temperature 37.1 C (98.8 F) 07/21/2010 11:10 PM [employer] Respiratory Rate - - Oxygen Saturation 95% 07/22/2010 3:20 AM [employer] Inhaled Oxygen - - Concentration Weight 109.8 kg (242 lb 1.6 oz) 07/22/2010 3:20 AM [employer] Height 170.2 cm (5' 7.01") 07/17/2010 9:00 AM [employer] Body Mass Index 37.91 07/22/2010 3:20 AM [employer] Plan of Treatment Health Maintenance Due Date Last Done Comments HEPATITIS C SCREENING 1950 PHYSICAL (COMPREHENSIVE) 1957 EXAM PERTUSSIS VACCINE 1961 TETANUS VACCINE 1967 BREAST CANCER SCREENING 1990 COLORECTAL CANCER 2000 SCREENING SHINGLES VACCINE 2010 OSTEOPOROSIS SCREENING 2015 PREVNAR/PNEUMOVAX (#1) 2015 INFLUENZA VACCINE 02/23/2018 Results Not on filefrom Last 3 Months
--- OUTSIDE RECORDS SUMMARY | 2017-09-30 10:37 | XMS REPORT | Continuity of Care Document ---
Author Author [facility] Organization [facility] Address Unknown Phone Unavailable Allergies Active Description Code Type Severity Reaction Onset Reported/Identified Relationship to Patient Clinical Status Yes NO KNOWN DRUG ALLERGIES NO KNOWN DRUG ALLERG UNKNOWN Yes LORAZEPAM UNKNOWN OTHER Yes NO KNOWN DRUG ALLERGIES UNKNOWN NO KNOWN DRUG ALLERG Yes No Known Drug Allergies [id number] Drug Allergy Unknown N/A 02/08/2011 Medications Medication Packaging Start Date Stop Date Route Dosage Sig ACETAMINOPHEN ORAL TABLET 325mg(Tylenol) MG 05/12/2016 05/12/2016 PRN ONCE TRAMADOL TAB 50 MG (ULTRAM) MG 05/12/2016 ONCE&1954 NORMAL SALINE 500CC IV BAG INJ 0.9 % (NS 500CC IV BAG) ml 05/15/2016 05/15/2016 ONCE&1309 FENTANYL AMP INJ 100 MCG/2CC MCG 05/15/2016 ONCE&1312 DEXTROSE INJ 50% SYRINGE INJ 50 % ml 05/15/2016 05/15/2016 PRN ONCE INSULIN REGULAR HUMAN INJ 100 UNITS/CC (HUMULIN R / NOVOLIN R INSULIN) UNITS 05/15/2016 05/15/2016 ONCE&1421 IPRATROPIUM/ALBUTEROL INH SOLN INH 0 (DUO-NEB INH SOLN) MLS 05/15/2016 05/22/2016 QID&0600,1100,1600,2100 AMOX-CLAV 875/125 TAB 875 MG-125MG (AUGMENTIN) TAB 10/13/2016 10/13/2016 ONCE&1746 TRAMADOL TAB 50 MG (ULTRAM) Dose(s) 02/13/2017 02/20/2017 PRN EVERY 0 Hour IPRATROPIUM/ALBUTEROL INH SOLN INH 0 (DUO-NEB INH SOLN) Dose(s) 02/13/2017 02/20/2017 PRN QID TRAMADOL TAB 50 MG (ULTRAM) Dose(s) 02/13/2017 02/20/2017 PRN Q6H PANTOPRAZOLE TAB 20 MG (PROTONIX) MG 02/14/2017 02/20/2017 Daily&0900 ESCITALOPRAM TAB 10 MG (LEXAPRO) Dose(s) 02/14/2017 02/20/2017 Daily&0900 POTASSIUM CHLORIDE TAB 10 MEQ (K-DUR) Dose(s) 02/14/2017 02/20/2017 Daily&0900 ASA (ASPIRIN) TAB 325 MG (DMITRIY) Dose(s) 02/14/2017 02/20/2017 Daily&0900 LISINOPRIL TAB 5 MG (ZESTRIL) Dose(s) 02/14/2017 02/20/2017 Daily&0900 MELOXICAM TAB 7.5 MG (MOBIC) Dose(s) 02/14/2017 02/21/2017 PRN Daily FUROSEMIDE TAB 20 MG (LASIX) Dose(s) 02/14/2017 02/20/2017 Daily&0900 ROPINIROLE TAB 1 MG (REQUIP) Dose(s) 02/14/2017 02/20/2017 Daily&0900 BISACODYL TAB 5 MG (DULCOLAX) MG 07/08/2017 Daily&0900 IPRATROPIUM/ALBUTEROL INH SOLN INH 0 (DUO-NEB INH SOLN) MLS 07/02/2017 07/09/2017 QID&0600,1100,1600,2100 TRAMADOL TAB 50 MG (ULTRAM) MG 11/201707/09/2017 PRN Q6H FUROSEMIDE VIAL INJ 20 MG (LASIX VIAL) MG 07/02/2017 07/02/2017 ONCE&1230 SIMVASTATIN TAB 40 MG (ZOCOR) MG 07/08/2017 QPM&2000 ALUM/MAG/SIMETH 30CC LIQ (MYLANTA PLUS) cc 07/03/2017 07/13/2017 PRN Q4H ESCITALOPRAM TAB 10 MG (LEXAPRO) MG 07/03/2017 07/09/2017 Daily&0900 POTASSIUM CHLORIDE TAB 10 MEQ (K-DUR) MEQ 07/03/2017 07/09/2017 Daily&0900 ASA (ASPIRIN) TAB 325 MG (DMITRIY) MG 07/03/2017 07/09/2017 Daily&0900 LISINOPRIL TAB 5 MG (ZESTRIL) MG 07/09/2017 Daily&0900 MELOXICAM TAB 7.5 MG (MOBIC) MG 12/201707/10/2017 PRN Daily ROPINIROLE TAB 1 MG (REQUIP) MG 12/201707/09/2017 Daily&0900 FUROSEMIDE VIAL INJ 20 MG (LASIX VIAL) MG 07/03/2017 07/09/2017 Daily&0900 MILK OF [place] LIQ ml 07/03/2017 08/02/2017 PRN BID FUROSEMIDE TAB 40 MG (LASIX) MG 01/201807/10/2017 Daily&0900 Problems Date Dx Coded Attending Type Code Diagnosis Diagnosed By 02/13/2011 Ot 305.1 TOBACCO USE DISORDER 02/13/2011 Ot 401.9 HYPERTENSION NOS 02/13/2011 Ot 414.01 CORONARY ATHEROSCLEROSIS OF CHEESH-NA CORON 02/13/2011 Ot 726.0 ADHESIVE CAPSULIT SHLDER 02/13/2011 Ot V12.59 HX- CIRCULATORY SYST DIS,NEC 02/13/2011 Ot V58.69 OTH MED,LT, CURRENT USE 05/06/2012 Ot 250.00 DIAB LUDIVINA WO COMPL, TYPE II OR UNSPEC TY 05/06/2012 Ot 272.4 HYPERLIPIDEMIA NEC/NOS 05/06/2012 Ot 414.01 CORONARY ATHEROSCLEROSIS OF [place]-NA CORON 05/06/2012 Ot 458.9 HYPOTENSION NOS 05/06/2012 Ot 496 CHR AIRWAY OBSTRUCT NEC 05/06/2012 Ot 786.59 CHEST PAIN NEC 05/06/2012 Ot 794.30 ABN CARDIOVASC STUDY NOS 05/06/2012 Ot V15.82 HISTORY OF TOBACCO USE 05/06/2012 Ot V46.2 SUPPLEMENTAL OXYGEN 05/06/2012 Ot V58.66 LONG-TERM ( CURRENT) USE OF ASPIRIN 05/06/2012 Ot V58.69 OTH MED,LT, CURRENT USE 01/13/2013 SAMANTHA GRIFFIN, MEDARDO Marks Ot 496 CHR AIRWAY OBSTRUCT NEC 04/14/2013 SAMANTHA GRIFFIN, MEDARDO Marks Ot 496 CHR AIRWAY OBSTRUCT NEC 10/27/2014 SAMANTHA GRIFFIN, MEDARDO Marks Ot 429.3 10/27/2014 SAMANTHA GRIFFIN, MEDARDO Marks Ot 496 10/27/2014 SAMANTHA GRIFFIN, MEDARDO Marks Ot 786.2 10/28/2014 SAMANTHA GRIFFIN, MEDARDO Marks Ot 429.3 10/28/2014 MEDARDO SINGH MD Ot 496 10/28/2014 SAMANTHA GRIFFIN, MEDARDO L Ot 786.2 11/17/2014 SAMANTHA GRIFFIN, MEDARDO L Ot 429.3 11/17/2014 SAMANTHA GRIFFIN, MEDARDO L Ot 496 11/17/2014 SAMANTHA GRIFFIN, MEDARDO L Ot 786.2 05/12/2016 Ted Carbajal 272.4 05/12/2016 Ted Carbajal 401.9 05/12/2016 Ted Carbajal 428.9 HEART FAILURE, UNSPECIFIED 05/12/2016 Ted Carbajal 496 CHRONIC AIRWAY OBSTRUCTION, NOT ELSEWHERE CLASSIFIED 05/12/2016 Ted Carbajal A 812.01 05/12/2016 Ted Carbajal E78.5 HYPERLIPIDEMIA, UNSPECIFIED 05/12/2016 Ted Carbajal I10 ESSENTIAL (PRIMARY) HYPERTENSION 05/12/2016 Ted Carbajal I50.9 HEART FAILURE, UNSPECIFIED 05/12/2016 Ted Carbajal J44.9 CHRONIC OBSTRUCTIVE PULMONARY DISEASE, UNSPECIFIED 05/12/2016 Ted Carbajal S42.215A UNSPECIFIED NONDISPLACED FRACTURE OF SURGICAL NECK OF LEFT HUMERUS, INITIAL ENCOUNTER FOR CLOSED FRACTURE 05/13/2016 Ted Carbajal 923.00 CONTUSION OF SHOULDER REGION 05/13/2016 Ted Carbajal S40.012A CONTUSION OF LEFT SHOULDER, INITIAL ENCOUNTER 05/13/2016 Ted Carbajal 812.01 FRACTURE OF SURGICAL NECK OF HUMERUS, CLOSED 05/13/2016 Ted Carbajal S42.232A 3-PART FRACTURE OF SURGICAL NECK OF LEFT HUMERUS, INITIAL ENCOUNTER FOR CLOSED FRACTURE 05/15/2016 Jeffery Feliz 276.2 05/15/2016 Jeffery Feliz 276.7 05/15/2016 Jeffery Feliz 296.20 MAJOR DEPRESSIVE DISORDER, SINGLE EPISODE, UNSPECIFIED DEGREE 05/15/2016 Jeffery Feliz 401.0 MALIGNANT ESSENTIAL HYPERTENSION 05/15/2016 Jeffery Feliz 428.9 HEART FAILURE, UNSPECIFIED 05/15/2016 Jeffery Feliz 434.91 05/15/2016 Jeffery Feliz 491.20 05/15/2016 Jeffery Feliz 584.9 ACUTE KIDNEY FAILURE, UNSPECIFIED 05/15/2016 Jeffery Feliz 786.00 05/15/2016 Jeffery Feliz E87.2 ACIDOSIS 05/15/2016 Jeffery Felzi E87.5 HYPERKALEMIA 05/15/2016 Jeffery Feliz F32.9 MAJOR DEPRESSIVE DISORDER, SINGLE EPISODE, UNSPECIFIED 05/15/2016 Jeffery Feliz I10 ESSENTIAL (PRIMARY) HYPERTENSION 05/15/2016 Jeffery Feliz I50.9 HEART FAILURE, UNSPECIFIED 05/15/2016 Jeffery Feliz I63.9 CEREBRAL INFARCTION, UNSPECIFIED 05/15/2016 Jeffery Feliz J44.9 CHRONIC OBSTRUCTIVE PULMONARY DISEASE, UNSPECIFIED 05/15/2016 Jeffery Feliz N17.9 ACUTE KIDNEY FAILURE, UNSPECIFIED 05/15/2016 Jeffery Feliz R06.89 OTHER ABNORMALITIES OF BREATHING 05/31/2016 Ot 726.0 ADHESIVE CAPSULIT SHLDER 05/31/2016 Ot V72.63 PRE- PROCEDURAL LABORATORY EXAMINATION 05/31/2016 Ot V74.8 SCREEN- BACTERIAL DIS NEC 05/31/2016 Ot 305.1 TOBACCO USE DISORDER 05/31/2016 Ot 782.3 EDEMA 05/31/2016 Ot 786.05 SHORTNESS OF BREATH 05/31/2016 Ot 729.5 PAIN IN LIMB 05/31/2016 Ot 729.81 SWELLING OF LIMB 05/31/2016 Ot 780.97 ALTERED MENTAL STATUS 05/31/2016 Ot V12.54 PERSONAL HX OF TIA, CEREBRAL INFARCTION 05/31/2016 Ot V15.88 HISTORY OF FALL 05/31/2016 Ot 348.89 OTHER CONDITIONS OF BRAIN 05/31/2016 Ot 780.97 ALTERED MENTAL STATUS 05/31/2016 Ot V12.54 PERSONAL HX OF TIA, CEREBRAL INFARCTION 05/31/2016 Ot V15.88 HISTORY OF FALL 05/31/2016 Ot 348.89 OTHER CONDITIONS OF BRAIN 05/31/2016 Ot 781.2 ABNORMALITY OF GAIT 05/31/2016 Ot 793.99 OT NOSP ( ABN) FINDINGS RADIOLOGICAL O 05/31/2016 Ot V12.54 PERSONAL HX OF TIA, CEREBRAL INFARCTION 05/31/2016 Ot 428.0 CONGESTIVE HEART FAILURE NOS 05/31/2016 Ot 786.50 CHEST PAIN NOS 05/31/2016 Ot 695.9 ERYTHEMATOUS COND NOS 05/31/2016 Ot 729.81 SWELLING OF LIMB 05/31/2016 Ot 585.9 CHRONIC KIDNEY DISEASE, UNSPECIFIED 05/31/2016 Ot 429.3 CARDIOMEGALY 05/31/2016 Ot 511.9 PLEURAL EFFUSION NOS 05/31/2016 NATHAN VALDERRAMA Ot 433.10 CAROTID ARTERY OCCLUSION W O CEREBRAL IN 05/31/2016 MEDARDO SINGH MD Ot 593.9 RENAL URETERAL DIS NOS 05/31/2016 Ot 496 CHR AIRWAY OBSTRUCT NEC 05/31/2016 MEDARDO SINGH MD Ot 719.41 JOINT PAIN-SHLDER 05/31/2016 MEDARDO SINGH MD Ot 401.9 HYPERTENSION NOS 05/31/2016 MEDARDO SINGH MD Ot 719.46 JOINT PAIN-L/LEG 05/31/2016 MEDARDO SINGH MD Ot 429.3 CARDIOMEGALY 05/31/2016 MEDARDO SINGH MD Ot 496 CHR AIRWAY OBSTRUCT NEC 05/31/2016 MEDARDO SINGH MD Ot 786.2 COUGH 06/02/2016 LUIS HERNÁNDEZ MD Ot G47.30 SLEEP APNEA, UNSPECIFIED 06/02/2016 LUIS HERNÁNDEZ MD Ot J44.9 CHRONIC OBSTRUCTIVE PULMONARY DISEASE, U 06/02/2016 LUIS HERNÁNDEZ MD Ot K21.9 GASTRO-ESOPHAGEAL REFLUX DISEASE WITHOUT 06/02/2016 LUIS HERNÁNDEZ MD Ot S42.302D UNSP FX SHAFT OF HUMERUS, LEFT ARM, SUBS 06/02/2016 LUIS HERNÁNDEZ MD Ot Z99.81 DEPENDENCE ON SUPPLEMENTAL OXYGEN 10/13/2016 CRUZ SANTOS 682.6 CELLULITIS AND ABSCESS OF LEG, EXCEPT FOOT 10/13/2016 CRUZ SANTOS A L03.116 CELLULITIS OF LEFT LOWER LIMB 02/14/2017 MEDARDO SINGH W 272.4 02/14/2017 MEDARDO SINGH 401.0 02/14/2017 MEDARDO SINGH 428.9 HEART FAILURE, UNSPECIFIED 02/14/2017 MEDARDO SINGH 496 CHRONIC AIRWAY OBSTRUCTION, NOT ELSEWHERE CLASSIFIED 02/14/2017 MEDARDO SINGH W 780.97 02/14/2017 MEDARDO SINGH A 786.09 OTHER DYSPNEA AND RESPIRATORY ABNORMALITY 02/14/2017 SINGH, MEDARDO W E78.5 HYPERLIPIDEMIA, UNSPECIFIED 02/14/2017 MEDARDO SINGH W I10 ESSENTIAL (PRIMARY) HYPERTENSION 02/14/2017 MEDARDO SINGH Leroy I50.9 HEART FAILURE, UNSPECIFIED 02/14/2017 ELLA SINGHANTIONETTE Harper J44.9 CHRONIC OBSTRUCTIVE PULMONARY DISEASE, UNSPECIFIED 02/14/2017 MEDARDO SINGH A R06.89 OTHER ABNORMALITIES OF BREATHING 02/14/2017 MEDARDO SINGH Leroy R41.0 DISORIENTATION, UNSPECIFIED 02/14/2017 MEDARDO SINGH V15.81 PERSONAL HISTORY OF NONCOMPLIANCE WITH MEDICAL TREATMENT, PRESENTING HAZARDS TO HEALTH 02/14/2017 MEDARDO SINGH Z91.14 PATIENT'S OTHER NONCOMPLIANCE WITH MEDICATION REGIMEN 02/27/2017 Ot 305.1 TOBACCO USE DISORDER 02/27/2017 Ot 782.3 EDEMA 02/27/2017 Ot 786.05 SHORTNESS OF BREATH 02/27/2017 Ot 729.5 PAIN IN LIMB 02/27/2017 Ot 729.81 SWELLING OF LIMB 02/27/2017 Ot 780.97 ALTERED MENTAL STATUS 02/27/2017 Ot V12.54 PERSONAL HX OF TIA, CEREBRAL INFARCTION 02/27/2017 Ot V15.88 HISTORY OF FALL 02/27/2017 Ot 348.89 OTHER CONDITIONS OF BRAIN 02/27/2017 Ot 780.97 ALTERED MENTAL STATUS 02/27/2017 Ot V12.54 PERSONAL HX OF TIA, CEREBRAL INFARCTION 02/27/2017 Ot V15.88 HISTORY OF FALL 02/27/2017 Ot 348.89 OTHER CONDITIONS OF BRAIN 02/27/2017 Ot 781.2 ABNORMALITY OF GAIT 02/27/2017 Ot 793.99 OTH NOSP ( ABN) FINDINGS RADIOLOGICAL O 02/27/2017 Ot V12.54 PERSONAL HX OF TIA, CEREBRAL INFARCTION 02/27/2017 Ot 428.0 CONGESTIVE HEART FAILURE NOS 02/27/2017 Ot 786.50 CHEST PAIN NOS 02/27/2017 Ot 695.9 ERYTHEMATOUS COND NOS 02/27/2017 Ot 729.81 SWELLING OF LIMB 02/27/2017 Ot 585.9 CHRONIC KIDNEY DISEASE, UNSPECIFIED 02/27/2017 Ot 429.3 CARDIOMEGALY 02/27/2017 Ot 511.9 PLEURAL EFFUSION NOS 02/27/2017 NATHAN VALDERRAMA Ot 433.10 CAROTID ARTERY OCCLUSION W O CEREBRAL IN 02/27/2017 MEDARDO SINGH MD Ot 593.9 RENAL URETERAL DIS NOS 02/27/2017 Ot 496 CHR AIRWAY OBSTRUCT NEC 02/27/2017 MEDARDO SINGH MD Ot 719.41 JOINT PAIN-SHLDER 02/27/2017 MEDARDO SINGH MD Ot 401.9 HYPERTENSION NOS 02/27/2017 MEDARDO SINGH MD Ot 719.46 JOINT PAIN-L/LEG 02/27/2017 MEDARDO SINGH MD Ot 429.3 CARDIOMEGALY 02/27/2017 MEDARDO SINGH MD Ot 496 CHR AIRWAY OBSTRUCT NEC 02/27/2017 MEDARDO SINGH MD Ot 786.2 COUGH 02/27/2017 Ot 305.1 TOBACCO USE DISORDER 02/27/2017 Ot 782.3 EDEMA 02/27/2017 Ot 786.05 SHORTNESS OF BREATH 02/27/2017 Ot 729.5 PAIN IN LIMB 02/27/2017 Ot 729.81 SWELLING OF LIMB 02/27/2017 Ot 780.97 ALTERED MENTAL STATUS 02/27/2017 Ot V12.54 PERSONAL HX OF TIA, CEREBRAL INFARCTION 02/27/2017 Ot V15.88 HISTORY OF FALL 02/27/2017 Ot 348.89 OTHER CONDITIONS OF BRAIN 02/27/2017 Ot 780.97 ALTERED MENTAL STATUS 02/27/2017 Ot V12.54 PERSONAL HX OF TIA, CEREBRAL INFARCTION 02/27/2017 Ot V15.88 HISTORY OF FALL 02/27/2017 Ot 348.89 OTHER CONDITIONS OF BRAIN 02/27/2017 Ot 781.2 ABNORMALITY OF GAIT 02/27/2017 Ot 793.99 OT NOSP ( ABN) FINDINGS RADIOLOGICAL O 02/27/2017 Ot V12.54 PERSONAL HX OF TIA, CEREBRAL INFARCTION 02/27/2017 Ot 428.0 CONGESTIVE HEART FAILURE NOS 02/27/2017 Ot 786.50 CHEST PAIN NOS 02/27/2017 Ot 695.9 ERYTHEMATOUS COND NOS 02/27/2017 Ot 729.81 SWELLING OF LIMB 02/27/2017 Ot 585.9 CHRONIC KIDNEY DISEASE, UNSPECIFIED 02/27/2017 Ot 429.3 CARDIOMEGALY 02/27/2017 Ot 511.9 PLEURAL EFFUSION NOS 02/27/2017 NATHAN VALDERRAMA Ot 433.10 CAROTID ARTERY OCCLUSION W O CEREBRAL IN 02/27/2017 MEDARDO SINGH MD Ot 593.9 RENAL URETERAL DIS NOS 02/27/2017 Ot 496 CHR AIRWAY OBSTRUCT NEC 02/27/2017 SAMANTHA GRIFFIN, MEDARDO Marks Ot 719.41 JOINT PAIN-SHLDER 02/27/2017 SAMANTHA GRIFFIN, MEDARDO Marks Ot 401.9 HYPERTENSION NOS 02/27/2017 MEDARDO SINGH MD Ot 719.46 JOINT PAIN-L/LEG 02/27/2017 MEDARDO SINGH MD Ot 429.3 CARDIOMEGALY 02/27/2017 SAMANTHA GRIFFIN, MEDARDO Marks Ot 496 CHR AIRWAY OBSTRUCT NEC 02/27/2017 MEDARDO SINGH MD Ot 786.2 COUGH 02/28/2017 CHRISSIE CROUCH APRN Ot I51.7 CARDIOMEGALY 02/28/2017 CHRISSIE CROUCH APRN Ot R91.8 OTHER NONSPECIFIC ABNORMAL FINDING OF REMI 02/28/2017 Ot 305.1 TOBACCO USE DISORDER 02/28/2017 Ot 782.3 EDEMA 02/28/2017 Ot 786.05 SHORTNESS OF BREATH 02/28/2017 Ot 729.5 PAIN IN LIMB 02/28/2017 Ot 729.81 SWELLING OF LIMB 02/28/2017 Ot 780.97 ALTERED MENTAL STATUS 02/28/2017 Ot V12.54 PERSONAL HX OF TIA, CEREBRAL INFARCTION 02/28/2017 Ot V15.88 HISTORY OF FALL 02/28/2017 Ot 348.89 OTHER CONDITIONS OF BRAIN 02/28/2017 Ot 780.97 ALTERED MENTAL STATUS 02/28/2017 Ot V12.54 PERSONAL HX OF TIA, CEREBRAL INFARCTION 02/28/2017 Ot V15.88 HISTORY OF FALL 02/28/2017 Ot 348.89 OTHER CONDITIONS OF BRAIN 02/28/2017 Ot 781.2 ABNORMALITY OF GAIT 02/28/2017 Ot 793.99 OTH NOSP ( ABN) FINDINGS RADIOLOGICAL O 02/28/2017 Ot V12.54 PERSONAL HX OF TIA, CEREBRAL INFARCTION 02/28/2017 Ot 428.0 CONGESTIVE HEART FAILURE NOS 02/28/2017 Ot 786.50 CHEST PAIN NOS 02/28/2017 Ot 695.9 ERYTHEMATOUS COND NOS 02/28/2017 Ot 729.81 SWELLING OF LIMB 02/28/2017 Ot 585.9 CHRONIC KIDNEY DISEASE, UNSPECIFIED 02/28/2017 Ot 429.3 CARDIOMEGALY 02/28/2017 Ot 511.9 PLEURAL EFFUSION NOS 02/28/2017 ADRIENNE JIMENEZ, NATHAN Vizcaino Ot 433.10 CAROTID ARTERY OCCLUSION W O CEREBRAL IN 02/28/2017 SAMANTHA GRIFFIN, MEDARDO Marks Ot 593.9 RENAL URETERAL DIS NOS 02/28/2017 Ot 496 CHR AIRWAY OBSTRUCT NEC 02/28/2017 SAMANTHA GRIFFIN, MEDARDO Marks Ot 719.41 JOINT PAIN-SHLDER 02/28/2017 SAMANTHA GRIFFIN, MEDARDO Marks Ot 401.9 HYPERTENSION NOS 02/28/2017 SAMANTHA GRIFFIN, MEDARDO Marks Ot 719.46 JOINT PAIN-L/LEG 02/28/2017 SAMANTHA GRIFFIN, MEDARDO Marks Ot 429.3 CARDIOMEGALY 02/28/2017 SAMANTHA GRIFFIN, MEDARDO Marks Ot 496 CHR AIRWAY OBSTRUCT NEC 02/28/2017 SAMANTHA GRIFFIN, MEDARDO Marks Ot 786.2 COUGH 02/28/2017 CHRISSIE CROUCH APRN Ot I51.7 CARDIOMEGALY 02/28/2017 CHRISSIE CROUCH APRN Ot R91.8 OTHER NONSPECIFIC ABNORMAL FINDING OF REMI 03/04/2017 Ot 305.1 TOBACCO USE DISORDER 03/04/2017 Ot 782.3 EDEMA 03/04/2017 Ot 786.05 SHORTNESS OF BREATH 03/04/2017 Ot 729.5 PAIN IN LIMB 03/04/2017 Ot 729.81 SWELLING OF LIMB 03/04/2017 Ot 780.97 ALTERED MENTAL STATUS 03/04/2017 Ot V12.54 PERSONAL HX OF TIA, CEREBRAL INFARCTION 03/04/2017 Ot V15.88 HISTORY OF FALL 03/04/2017 Ot 348.89 OTHER CONDITIONS OF BRAIN 03/04/2017 Ot 780.97 ALTERED MENTAL STATUS 03/04/2017 Ot V12.54 PERSONAL HX OF TIA, CEREBRAL INFARCTION 03/04/2017 Ot V15.88 HISTORY OF FALL 03/04/2017 Ot 348.89 OTHER CONDITIONS OF BRAIN 03/04/2017 Ot 781.2 ABNORMALITY OF GAIT 03/04/2017 Ot 793.99 OTH NOSP ( ABN) FINDINGS RADIOLOGICAL O 03/04/2017 Ot V12.54 PERSONAL HX OF TIA, CEREBRAL INFARCTION 03/04/2017 Ot 428.0 CONGESTIVE HEART FAILURE NOS 03/04/2017 Ot 786.50 CHEST PAIN NOS 03/04/2017 Ot 695.9 ERYTHEMATOUS COND NOS 03/04/2017 Ot 729.81 SWELLING OF LIMB 03/04/2017 Ot 585.9 CHRONIC KIDNEY DISEASE, UNSPECIFIED 03/04/2017 Ot 429.3 CARDIOMEGALY 03/04/2017 Ot 511.9 PLEURAL EFFUSION NOS 03/04/2017 NATHAN VALDERRAMA Ot 433.10 CAROTID ARTERY OCCLUSION W O CEREBRAL IN 03/04/2017 SAMANTHA GRIFFIN, MEDARDO L Ot 593.9 RENAL URETERAL DIS NOS 03/04/2017 Ot 496 CHR AIRWAY OBSTRUCT NEC 03/04/2017 SAMANTHA GRIFFIN, MEDARDO L Ot 719.41 JOINT PAIN-SHLDER 03/04/2017 SAMANTHA GRIFFIN, MEDARDO L Ot 401.9 HYPERTENSION NOS 03/04/2017 SAMANTHA GRIFFIN, MEDARDO L Ot 719.46 JOINT PAIN-L/LEG 03/04/2017 SAMANTHA GRIFFIN, MEDARDO L Ot 429.3 CARDIOMEGALY 03/04/2017 SAMANTHA GRIFFIN, MEDARDO L Ot 496 CHR AIRWAY OBSTRUCT NEC 03/04/2017 SAMANTHA GRIFFIN, MEDARDO L Ot 786.2 COUGH 03/04/2017 CHRISSIE CROUCH APRN Ot I51.7 CARDIOMEGALY 03/04/2017 CHRISSIE CROUCH APRN Ot R91.8 OTHER NONSPECIFIC ABNORMAL FINDING OF REMI 03/05/2017 KALEIGH HUGO MD, Ot J44.0 CHRONIC OBSTRUCTIVE PULMON DISEASE W ACU 03/05/2017 CHRISSIE CROUCH APRN Ot J44.9 CHRONIC OBSTRUCTIVE PULMONARY DISEASE, U 03/05/2017 CHRISSIE CROUCH APRN Ot J96.20 ACUTE AND CHR RESP FAILURE, UNSP W HYPOX 03/05/2017 KALEIGH HUGO MD Ot E83.52 HYPERCALCEMIA 03/05/2017 KALEIGH HUGO MD Ot G25.81 RESTLESS LEGS SYNDROME 03/05/2017 KALEIGH HUGO MD Ot I10 ESSENTIAL (PRIMARY) HYPERTENSION 03/05/2017 KALEIGH HUGO MD, Ot J44.1 CHRONIC OBSTRUCTIVE PULMONARY DISEASE W 03/05/2017 KALEIGH HUGO MD Ot J96.22 ACUTE AND CHRONIC RESPIRATORY FAILURE [place] 03/05/2017 KALEIGH HUGO MD Ot K21.9 GASTRO-ESOPHAGEAL REFLUX DISEASE WITHOUT 03/05/2017 OANH MD, KALEIGH M Ot R29.6 REPEATED FALLS 03/05/2017 KALEIGH HUGO MD Ot Z60.2 PROBLEMS RELATED TO LIVING ALONE 03/05/2017 KALEIGH HUGO MD Ot Z87.442 PERSONAL HISTORY OF URINARY CALCULI 03/05/2017 KALEIGH HUGO MD Ot Z87.891 PERSONAL HISTORY OF NICOTINE DEPENDENCE 03/05/2017 KALEIGH HUGO MD Ot E83.52 HYPERCALCEMIA 03/05/2017 KALEIGH HUGO MD Ot G25.81 RESTLESS LEGS SYNDROME 03/05/2017 KALEIGH HUGO MD Ot I10 ESSENTIAL (PRIMARY) HYPERTENSION 03/05/2017 KALEIGH HUGO MD, Ot J44.1 CHRONIC OBSTRUCTIVE PULMONARY DISEASE W 03/05/2017 KALEIGH HUGO MD Ot J96.22 ACUTE AND CHRONIC RESPIRATORY FAILURE [place] 03/05/2017 KALEIGH HUGO MD Ot K21.9 GASTRO-ESOPHAGEAL REFLUX DISEASE WITHOUT 03/05/2017 KALEIGH HUGO MD Ot R29.6 REPEATED FALLS 03/05/2017 KALEIGH HUGO MD Ot Z60.2 PROBLEMS RELATED TO LIVING ALONE 03/05/2017 KALEIGH HUGO MD Ot Z87.442 PERSONAL HISTORY OF URINARY CALCULI 03/05/2017 KALEIGH HUGO MD Ot Z87.891 PERSONAL HISTORY OF NICOTINE DEPENDENCE 03/06/2017 KALEIGH HUGO MD Ot E83.52 HYPERCALCEMIA 03/06/2017 KALEIGH HUGO MD Ot E87.5 HYPERKALEMIA 03/06/2017 KALEIGH HUGO MD Ot F32.9 MAJOR DEPRESSIVE DISORDER, SINGLE EPISOD 03/06/2017 KALEIGH HUGO MD, Ot F41.9 ANXIETY DISORDER, UNSPECIFIED 03/06/2017 KALEIGH HUGO MD Ot G25.81 RESTLESS LEGS SYNDROME 03/06/2017 KALEIGH HUGO MD Ot G47.33 OBSTRUCTIVE SLEEP APNEA (ADULT) (PEDIATR 03/06/2017 KALEIGH HUGO MD Ot I10 ESSENTIAL (PRIMARY) HYPERTENSION 03/06/2017 KALEIGH HUGO MD, Ot J44.9 CHRONIC OBSTRUCTIVE PULMONARY DISEASE, U 03/06/2017 KALEIGH HUGO MD Ot J96.22 ACUTE AND CHRONIC RESPIRATORY FAILURE [place] 03/06/2017 KALEIGH HUGO MD Ot K21.9 GASTRO-ESOPHAGEAL REFLUX DISEASE WITHOUT 03/06/2017 KALEIGH HUGO MD Ot R29.6 REPEATED FALLS 03/06/2017 KALEIGH HUGO MD Ot Z60.2 PROBLEMS RELATED TO LIVING ALONE 03/06/2017 KALEIGH HUGO MD Ot Z87.442 PERSONAL HISTORY OF URINARY CALCULI 03/06/2017 KALEIGH HUGO MD Ot Z87.891 PERSONAL HISTORY OF NICOTINE DEPENDENCE 03/10/2017 CHRISSIE CROUCH APRN Ot J44.9 CHRONIC OBSTRUCTIVE PULMONARY DISEASE, U 03/10/2017 CHRISSIE CROUCH TRAVEL DIRECTOR Ot J96.20 ACUTE AND CHR RESP FAILURE, UNSP W HYPOX 03/12/2017 CHRISSIE CROUCH APRN Ot I51.7 CARDIOMEGALY 03/12/2017 CHRISSIE CROUCH TRAVEL DIRECTOR Ot R91.8 OTHER NONSPECIFIC ABNORMAL FINDING OF REMI 03/14/2017 CHRISSIE CROUCH TRAVEL DIRECTOR Ot J44.9 CHRONIC OBSTRUCTIVE PULMONARY DISEASE, U 03/14/2017 CHRISSIE CROUCH TRAVEL DIRECTOR Ot J96.20 ACUTE AND CHR RESP FAILURE, UNSP W HYPOX 05/27/2017 MEDARDO SINGH A 496 CHRONIC AIRWAY OBSTRUCTION, NOT ELSEWHERE CLASSIFIED 05/27/2017 MEDARDO SINGH A J44.9 CHRONIC OBSTRUCTIVE PULMONARY DISEASE, UNSPECIFIED 05/27/2017 MEDARDO SINGH A 496 CHRONIC AIRWAY OBSTRUCTION, NOT ELSEWHERE CLASSIFIED 05/27/2017 MEDARDO SINGH A J44.9 CHRONIC OBSTRUCTIVE PULMONARY DISEASE, UNSPECIFIED 05/27/2017 ELLA SINGHHEL A 496 CHRONIC AIRWAY OBSTRUCTION, NOT ELSEWHERE CLASSIFIED 05/27/2017 MEDARDO SINGH A J44.9 CHRONIC OBSTRUCTIVE PULMONARY DISEASE, UNSPECIFIED 07/02/2017 MEDARDO SINGH W 428.0 CONGESTIVE HEART FAILURE, UNSPECIFIED 07/02/2017 MEDARDO SINGH W I50.9 HEART FAILURE, UNSPECIFIED 07/02/2017 MEDARDO SINGH W 428.0 CONGESTIVE HEART FAILURE, UNSPECIFIED 07/02/2017 MEDARDO SINGH W I50.9 HEART FAILURE, UNSPECIFIED 07/03/2017 MEDARDO SINGH W 428.0 CONGESTIVE HEART FAILURE, UNSPECIFIED 07/03/2017 MEDARDO SINGH A 491.21 07/03/2017 MEDARDO SINGH W 780.79 OTHER MALAISE AND FATIGUE 07/03/2017 MEDARDO SINGH 780.97 ALTERED MENTAL STATUS 07/03/2017 MEDARDO SINGH W 786.00 RESPIRATORY ABNORMALITY, UNSPECIFIED 07/03/2017 MEDARDO SINGH I50.9 HEART FAILURE, UNSPECIFIED 07/03/2017 MEDARDO SINGH A J44.1 CHRONIC OBSTRUCTIVE PULMONARY DISEASE W (ACUTE) EXACERBATION 07/03/2017 MEDARDO SINGH W R06.89 OTHER ABNORMALITIES OF BREATHING 07/03/2017 MEDARDO SINGH R41.0 DISORIENTATION, UNSPECIFIED 07/03/2017 MEDARDO SINGH R53.1 WEAKNESS 08/01/2017 CHRISSIE CROUCH APRN Ot J18.1 LOBAR PNEUMONIA, UNSPECIFIED ORGANISM 08/01/2017 CHRISSIE CROUCH APRN Ot J44.9 CHRONIC OBSTRUCTIVE PULMONARY DISEASE, U 08/13/2017 CHRISSIE CROUCH APRN Ot J18.1 LOBAR PNEUMONIA, UNSPECIFIED ORGANISM 08/13/2017 CHRISSIE CROUCH APRN Ot J44.9 CHRONIC OBSTRUCTIVE PULMONARY DISEASE, U 08/14/2017 Ot 729.5 PAIN IN LIMB 08/14/2017 Ot 729.81 SWELLING OF LIMB 08/14/2017 Ot 780.97 ALTERED MENTAL STATUS 08/14/2017 Ot V12.54 PERSONAL HX OF TIA, CEREBRAL INFARCTION 08/14/2017 Ot V15.88 HISTORY OF FALL 08/14/2017 Ot 348.89 OTHER CONDITIONS OF BRAIN 08/14/2017 Ot 780.97 ALTERED MENTAL STATUS 08/14/2017 Ot V12.54 PERSONAL HX OF TIA, CEREBRAL INFARCTION 08/14/2017 Ot V15.88 HISTORY OF FALL 08/14/2017 Ot 348.89 OTHER CONDITIONS OF BRAIN 08/14/2017 Ot 781.2 ABNORMALITY OF GAIT 08/14/2017 Ot 793.99 OT NOSP ( ABN) FINDINGS RADIOLOGICAL O 08/14/2017 Ot V12.54 PERSONAL HX OF TIA, CEREBRAL INFARCTION 08/14/2017 Ot 428.0 CONGESTIVE HEART FAILURE NOS 08/14/2017 Ot 786.50 CHEST PAIN NOS 08/14/2017 Ot 695.9 ERYTHEMATOUS COND NOS 08/14/2017 Ot 729.81 SWELLING OF LIMB 08/14/2017 Ot 585.9 CHRONIC KIDNEY DISEASE, UNSPECIFIED 08/14/2017 Ot 429.3 CARDIOMEGALY 08/14/2017 Ot 511.9 PLEURAL EFFUSION NOS 08/14/2017 ADRIENNE JIMENEZ, NATHAN Vizcaino Ot 433.10 CAROTID ARTERY OCCLUSION W O CEREBRAL IN 08/14/2017 SAMANTHA GRIFFIN, MEDARDO L Ot 593.9 RENAL URETERAL DIS NOS 08/14/2017 Ot 496 CHR AIRWAY OBSTRUCT NEC 08/14/2017 SAMANTHA GRIFFIN, MEDARDO L Ot 719.41 JOINT PAIN-SHLDER 08/14/2017 SAMANTHA GRIFFIN, MEDARDO L Ot 401.9 HYPERTENSION NOS 08/14/2017 SAMANTHA GRIFFIN, MEDARDO L Ot 719.46 JOINT PAIN-L/LEG 08/14/2017 SAMANTHA GRIFFIN, MEDARDO L Ot 429.3 CARDIOMEGALY 08/14/2017 SAMANTHA GRIFFIN, MEDARDO L Ot 496 CHR AIRWAY OBSTRUCT NEC 08/14/2017 SAMANTHA GRIFFIN, MEDARDO L Ot 786.2 COUGH 08/14/2017 CHRISSIE CROUCH APRN Ot I51.7 CARDIOMEGALY 08/14/2017 CHRISSIE CROUCH TRAVEL DIRECTOR Ot R91.8 OTHER NONSPECIFIC ABNORMAL FINDING OF REMI 08/14/2017 CHRISSIE CROUCH APRN Ot J44.9 CHRONIC OBSTRUCTIVE PULMONARY DISEASE, U 08/14/2017 CHRISSIE CROUCH TRAVEL DIRECTOR Ot J96.20 ACUTE AND CHR RESP FAILURE, UNSP W HYPOX 08/14/2017 CHRISSIE CROUCH APRN Ot J18.1 LOBAR PNEUMONIA, UNSPECIFIED ORGANISM 08/14/2017 CHRISSIE CROUCH APRN Ot J44.9 CHRONIC OBSTRUCTIVE PULMONARY DISEASE, U 08/19/2017 CHRISSIE CROUCH APRN Ot J18.1 LOBAR PNEUMONIA, UNSPECIFIED ORGANISM 08/19/2017 CHRISSIE CROUCH APRN Ot J44.9 CHRONIC OBSTRUCTIVE PULMONARY DISEASE, U 09/08/2017 Ot 428.0 CONGESTIVE HEART FAILURE NOS 09/08/2017 Ot 786.50 CHEST PAIN NOS 09/08/2017 Ot 695.9 ERYTHEMATOUS COND NOS 09/08/2017 Ot 729.81 SWELLING OF LIMB 09/08/2017 Ot 585.9 CHRONIC KIDNEY DISEASE, UNSPECIFIED 09/08/2017 Ot 429.3 CARDIOMEGALY 09/08/2017 Ot 511.9 PLEURAL EFFUSION NOS 09/08/2017 ADRIENNE JIMENEZ, NATHAN Vizcaino Ot 433.10 CAROTID ARTERY OCCLUSION W O CEREBRAL IN 09/08/2017 SAMANTHA GRIFFIN, MEDARDO L Ot 593.9 RENAL URETERAL DIS NOS 09/08/2017 Ot 496 CHR AIRWAY OBSTRUCT NEC 09/08/2017 SAMANTHA GRIFFIN, MEDARDO L Ot 719.41 JOINT PAIN-SHLDER 09/08/2017 SAMANTHA GRIFFIN, MEDARDO L Ot 401.9 HYPERTENSION NOS 09/08/2017 SAMANTHA GRIFFIN, MEDARDO L Ot 719.46 JOINT PAIN-L/LEG 09/08/2017 SAMANTHA GRIFFIN, MEDARDO L Ot 429.3 CARDIOMEGALY 09/08/2017 SAMANTHA GRIFFIN, MEDARDO L Ot 496 CHR AIRWAY OBSTRUCT NEC 09/08/2017 SAMANTHA GRIFFIN, MEDARDO L Ot 786.2 COUGH 09/08/2017 CHRISSIE CROUCH TRAVEL DIRECTOR Ot I51.7 CARDIOMEGALY 09/08/2017 CHRISSIE CROUCH TRAVEL DIRECTOR Ot R91.8 OTHER NONSPECIFIC ABNORMAL FINDING OF REMI 09/08/2017 CHRISSIE CROUCH TRAVEL DIRECTOR Ot J44.9 CHRONIC OBSTRUCTIVE PULMONARY DISEASE, U 09/08/2017 CHRISSIE CROUCH TRAVEL DIRECTOR Ot J96.20 ACUTE AND CHR RESP FAILURE, UNSP W HYPOX 09/08/2017 CHRISSIE CROUCH TRAVEL DIRECTOR Ot J18.1 LOBAR PNEUMONIA, UNSPECIFIED ORGANISM 09/08/2017 CHRISSIE CROUCH TRAVEL DIRECTOR Ot J44.9 CHRONIC OBSTRUCTIVE PULMONARY DISEASE, U 09/16/2017 CHRISSIE CROUCH TRAVEL DIRECTOR Ot J18.1 LOBAR PNEUMONIA, UNSPECIFIED ORGANISM 09/16/2017 CHRISSIE CROUCH TRAVEL DIRECTOR Ot J44.9 CHRONIC OBSTRUCTIVE PULMONARY DISEASE, U 09/16/2017 CHRISSIE CR[employer]CH TRAVEL DIRECTOR Ot J44.9 CHRONIC OBSTRUCTIVE PULMONARY DISEASE, U 09/16/2017 CHRISSIE CROUCH TRAVEL DIRECTOR Ot J96.20 ACUTE AND CHR RESP FAILURE, UNSP W HYPOX 09/16/2017 CHRISSIE CROUCH TRAVEL DIRECTOR Ot R53.83 OTHER FATIGUE Procedures There is no data. Results Test Result Range Comprehensive Metabolic Panel - 05/07/16 10:56 Albumin 3.9 g/dL 3.6-5.1 ALP 69 U/L 35-130 ALT 14 U/L 6-45 Anion Gap 14 6-14 AST 14 U/L 2-40 BUN 35 mg/dL 5-25 Calcium 10.2 mg/dL 8.3-10.4 Chloride 91 mmol/L 95-114 CO2 40 mEq/L 22-33 Creat 1.16 mg/dL 0.50-1.50 eGFR 47 mL/min/1.73m2 >59 Globulin 2.6 g/dL 2.3-3.5 Glucose 138 mg/dL 70-110 Osmo 299 280-295 Potassium 5.0 mmol/L 3.5-5.3 Sodium 140 mmol/L 134-148 TBil 0.5 mg/dL 0.2-1.2 TP 6.5 g/dL 6.0-8.3 Lipid Panel - 05/07/16 10:56 C/HDL 2.6 3.7-6.7 Cholesterol 210 mg/dL 100-240 HDL 81 mg/dL 30-85 LDL-Calculated 102 mg/dL 0-100 Trig 135 mg/dL 35-160 VLDL 27 mg/dL 0-42 Comprehensive Metabolic Panel - 05/15/16 13:09 Albumin 3.8 g/dL 3.6-5.1 ALP 68 U/L 35-130 ALT 24 U/L 6-45 Anion Gap 19 6-14 AST 16 U/L 2-40 BUN 67 mg/dL 5-25 Calcium 10.3 mg/dL 8.3-10.4 Chloride 90 mmol/L 95-114 CO2 34 mEq/L 22-33 Creat 2.59 mg/dL 0.50-1.50 eGFR 18 mL/min/1.73m2 >59 Globulin 3.2 g/dL 2.3-3.5 Glucose 153 mg/dL 70-110 Osmo 304 280-295 Potassium 6.0 no hemolysis mmol/L 3.5-5.3 Sodium 137 mmol/L 134-148 TBil 0.5 mg/dL 0.2-1.2 TP 7.0 g/dL 6.0-8.3 Arterial Blood Gas - 05/15/16 13:12 Base 12.00 mmol/L 1.80-4.20 HCO3 38 mmol/L 20-31 O2 Sat 93 3L % 95-100 pCO2 75 mm/Hg 35-45 pH 7.32 7.35-7.45 PO2 76 mm/Hg 80-95 BNP - 05/15/16 13:44 BNP 62.90 pg/ml 0.00-100.00 Urinalysis - 05/15/16 14:08 EKG - 05/15/16 14:21 EKG Complete Arterial Blood Gas - 05/15/16 15:01 Base 8.00 mmol/L 1.80-4.20 HCO3 35 mmol/L 20-31 O2 Sat 95 bipap % 95-100 pCO2 83 mm/Hg 35-45 pH 7.24 7.35-7.45 PO2 97 mm/Hg 80-95 Complete blood count (CBC) with automated white blood cell (WBC) differential - 05/31/16 11:08 Blood leukocytes automated count (number/volume) 9.1 10*3/uL 4.3-11.0 Blood erythrocytes automated count (number/volume) 4.12 10*6/uL 4.35-5.85 Venous blood hemoglobin measurement (mass/volume) 12.5 g/dL 11.5-16.0 Blood hematocrit (volume fraction) 43 % 35-52 Automated erythrocyte mean corpuscular volume 104 [foz_us] 80-99 Automated erythrocyte mean corpuscular hemoglobin (mass per erythrocyte) 30 pg 25-34 Automated erythrocyte mean corpuscular hemoglobin concentration measurement ( mass/volume) 29 g/dL 32-36 Automated erythrocyte distribution width ratio 15.6 % 10.0-14.5 Automated blood platelet count (count/volume) 199 10*3/uL 130-400 Automated blood platelet mean volume measurement 11.5 [foz_us] 7.4-10.4 Automated blood neutrophils/100 leukocytes 73 % 42-75 Automated blood lymphocytes/100 leukocytes 14 % 12-44 Blood monocytes/100 leukocytes 12 % 0-12 Automated blood eosinophils/100 leukocytes 1 % 0-10 Automated blood basophils/100 leukocytes 0 % 0-10 Blood neutrophils automated count (number/volume) 6.6 10*3 1.8-7.8 Blood lymphocytes automated count (number/volume) 1.3 10*3 1.0-4.0 Blood monocytes automated count (number/volume) 1.1 10*3 0.0-1.0 Automated eosinophil count 0.1 10*3/uL 0.0-0.3 Automated blood basophil count (count/volume) 0.0 10*3/uL 0.0-0.1 Blood lactic acid measurement (moles/volume) - 05/31/16 11:08 Blood lactic acid measurement (moles/volume) 0.8 mmol/L 0.5-2.0 Comprehensive metabolic panel - 05/31/16 11:08 Serum or plasma sodium measurement (moles/volume) 140 mmol/L 135-145 Serum or plasma potassium measurement (moles/volume) 3.9 mmol/L 3.6-5.0 Serum or plasma chloride measurement (moles/volume) 88 mmol/L 98-107 Carbon dioxide 43 mmol/L 21-32 Serum or plasma anion gap determination (moles/volume) 9 mmol/L 5-14 Serum or plasma urea nitrogen measurement (mass/volume) 34 mg/dL 7-18 Serum or plasma creatinine measurement (mass/volume) 0.90 mg/dL 0.60-1.30 Serum or plasma urea nitrogen/creatinine mass ratio 38 NRG Serum or plasma creatinine measurement with calculation of estimated glomerular filtration rate > NRG Serum or plasma glucose measurement (mass/volume) 118 mg/dL 70-105 Serum or plasma calcium measurement (mass/volume) 10.1 mg/dL 8.5-10.1 Serum or plasma total bilirubin measurement (mass/volume) 0.6 mg/dL 0.1-1.0 Serum or plasma alkaline phosphatase measurement (enzymatic activity/volume) 83 U/L 40-136 Serum or plasma aspartate aminotransferase measurement (enzymatic activity/ volume) 11 U/L 5-34 Serum or plasma alanine aminotransferase measurement (enzymatic activity/volume ) 23 U/L 0-55 Serum or plasma protein measurement (mass/volume) 5.9 g/dL 6.4-8.2 Serum or plasma albumin measurement (mass/volume) 3.8 g/dL 3.2-4.5 Bacterial blood culture - 05/31/16 11:08 Bacterial blood culture NG NRG Arterial blood gas measurement - 05/31/16 11:10 Blood pCO2 81 mm[Hg] 35-45 Blood pO2 118 mm[Hg] 79-93 Arterial blood bicarbonate measurement (moles/volume) 47 mmol/L 23-27 Arterial blood base excess by calculation 18.4 mmol/L - 2.5-2.5 Arterial blood oxygen saturation measurement 98 % 94-100 * Inhaled oxygen flow rate 3 NRG Arterial blood pH measurement with patient temperature correction 7.38 7.37-7.43 Arterial blood carbon dioxide, total measurement (moles/volume) 49.8 mmol/L 21.0-31.0 Body site R NRG Assessment of wrist artery patency prior to arterial puncture RAD NRG Setting of ventilation mode NO NRG Measurement of body temperature 98.2 NRG Bacterial blood culture - 05/31/16 11:15 Bacterial blood culture NG NRG Arterial blood gas measurement - 05/31/16 13:00 Blood pCO2 84 mm[Hg] 35-45 Blood pO2 104 mm[Hg] 79-93 Arterial blood bicarbonate measurement (moles/volume) 48 mmol/L 23-27 Arterial blood base excess by calculation 18.1 mmol/L - 2.5-2.5 Arterial blood oxygen saturation measurement 98 % 94-100 * Inhaled oxygen flow rate 3 NRG Arterial blood pH measurement with patient temperature correction 7.37 7.37-7.43 Arterial blood carbon dioxide, total measurement (moles/volume) 50.5 mmol/L 21.0-31.0 Body site R RAD NRG Assessment of wrist artery patency prior to arterial puncture YES- POS NRG Setting of ventilation mode NO NRG Measurement of body temperature 97.8 NRG Arterial blood gas measurement - 05/31/16 18:20 Blood pCO2 86 mm[Hg] 35-45 Blood pO2 65 mm[Hg] 79-93 Arterial blood bicarbonate measurement (moles/volume) 48 mmol/L 23-27 Arterial blood base excess by calculation 19.0 mmol/L - 2.5-2.5 Arterial blood oxygen saturation measurement 92 % 94-100 * Inhaled oxygen flow rate 25% NRG Arterial blood pH measurement with patient temperature correction 7.37 7.37-7.43 Arterial blood carbon dioxide, total measurement (moles/volume) 51.0 mmol/L 21.0-31.0 Body site R BRACHIAL NRG Assessment of wrist artery patency prior to arterial puncture POSITIVE NRG Setting of ventilation mode NO NRG Measurement of body temperature 98.8 NRG Complete blood count (CBC) with automated white blood cell (WBC) differential - 06/01/16 03:38 Blood leukocytes automated count (number/volume) 6.9 10*3/uL 4.3-11.0 Blood erythrocytes automated count (number/volume) 3.87 10*6/uL 4.35-5.85 Venous blood hemoglobin measurement (mass/volume) 11.5 g/dL 11.5-16.0 Blood hematocrit (volume fraction) 40 % 35-52 Automated erythrocyte mean corpuscular volume 103 [foz_us] 80-99 Automated erythrocyte mean corpuscular hemoglobin (mass per erythrocyte) 30 pg 25-34 Automated erythrocyte mean corpuscular hemoglobin concentration measurement ( mass/volume) 29 g/dL 32-36 Automated erythrocyte distribution width ratio 15.7 % 10.0-14.5 Automated blood platelet count (count/volume) 151 10*3/uL 130-400 Automated blood platelet mean volume measurement 11.8 [foz_us] 7.4-10.4 Automated blood neutrophils/100 leukocytes 65 % 42-75 Automated blood lymphocytes/100 leukocytes 24 % 12-44 Blood monocytes/100 leukocytes 10 % 0-12 Automated blood eosinophils/100 leukocytes 1 % 0-10 Automated blood basophils/100 leukocytes 0 % 0-10 Blood neutrophils automated count (number/volume) 4.5 10*3 1.8-7.8 Blood lymphocytes automated count (number/volume) 1.6 10*3 1.0-4.0 Blood monocytes automated count (number/volume) 0.7 10*3 0.0-1.0 Automated eosinophil count 0.1 10*3/uL 0.0-0.3 Automated blood basophil count (count/volume) 0.0 10*3/uL 0.0-0.1 Whole blood basic metabolic panel - 06/01/16 03:38 Serum or plasma sodium measurement (moles/volume) 141 mmol/L 135-145 Serum or plasma potassium measurement (moles/volume) 4.0 mmol/L 3.6-5.0 Serum or plasma chloride measurement (moles/volume) 89 mmol/L 98-107 Carbon dioxide 40 mmol/L 21-32 Serum or plasma anion gap determination (moles/volume) 12 mmol/L 5-14 Serum or plasma urea nitrogen measurement (mass/volume) 32 mg/dL 7-18 Serum or plasma creatinine measurement (mass/volume) 0.86 mg/dL 0.60-1.30 Serum or plasma urea nitrogen/creatinine mass ratio 37 NRG Serum or plasma creatinine measurement with calculation of estimated glomerular filtration rate > NRG Serum or plasma glucose measurement (mass/volume) 118 mg/dL 70-105 Serum or plasma calcium measurement (mass/volume) 9.5 mg/dL 8.5-10.1 Serum or plasma phosphate measurement (mass/volume) - 06/01/16 03:38 Serum or plasma phosphate measurement (mass/volume) 2.5 mg/dL 2.3-4.7 Magnesium - 06/01/16 03:38 Magnesium 1.8 mg/dL 1.8-2.4 Arterial blood gas measurement - 06/01/16 04:25 Blood pCO2 62 mm[Hg] 35-45 Blood pO2 93 mm[Hg] 79-93 Arterial blood bicarbonate measurement (moles/volume) 45 mmol/L 23-27 Arterial blood base excess by calculation 18.4 mmol/L - 2.5-2.5 Arterial blood oxygen saturation measurement 97 % 94-100 * Inhaled oxygen flow rate BIPAP 28% NRG Arterial blood pH measurement with patient temperature correction 7.48 7.37-7.43 Arterial blood carbon dioxide, total measurement (moles/volume) 46.7 mmol/L 21.0-31.0 Body site R RAD NRG Assessment of wrist artery patency prior to arterial puncture YES- POS NRG Setting of ventilation mode NO NRG Measurement of body temperature 98.8 NRG Complete urinalysis with reflex to culture - 06/01/16 10:25 Urine color determination YELLOW NRG Urine clarity determination SLIGHTLY CLOUDY NRG Urine pH measurement by test strip 8 5-9 Specific gravity of urine by test strip 1.010 1.016- 1.022 Urine protein assay by test strip, semi-quantitative 2+ NEGATIVE Urine glucose detection by automated test strip NEGATIVE NEGATIVE Erythrocytes detection in urine sediment by light microscopy 3+ NEGATIVE Urine ketones detection by automated test strip 1+ NEGATIVE Urine nitrite detection by test strip POSITIVE NEGATIVE Urine total bilirubin detection by test strip NEGATIVE NEGATIVE Urine urobilinogen measurement by automated test strip (mass/volume) 4 mg/dL NORMAL Urine leukocyte esterase detection by dipstick 3+ NEGATIVE Automated urine sediment erythrocyte count by microscopy (number/high power field) [HPF] NRG Automated urine sediment leukocyte count by microscopy (number/high power field ) [HPF] NRG Bacteria detection in urine sediment by light microscopy MODERATE NRG Squamous epithelial cells detection in urine sediment by light microscopy 0-2 NRG Crystals detection in urine sediment by light microscopy NONE NRG Casts detection in urine sediment by light microscopy NONE NRG Mucus detection in urine sediment by light microscopy NEGATIVE NRG Complete urinalysis with reflex to culture YES BANNER Bacterial urine culture - 06/01/16 10:25 Bacterial urine culture [id number] NR COLONY COUNT >100,000/ML BANNER FTX;REPORTABLE SENSITIVITY REPORTED AT 1750, 1-01-09 [facility]NER Bacterial susceptibility panel - 06/01/16 10:25 Gentamicin susceptibility test by minimum inhibitory concentration < = NR Trimethoprim/sulfamethoxazole susceptibility test by minimum inhibitoryconcentration >= [facility]NER Ampicillin susceptibility test by minimum inhibitory concentration > = BANNER Tobramycin susceptibility test by minimum inhibitory concentration < = [facility]NER Cefazolin susceptibility test by minimum inhibitory concentration < = [facility]ANNER Ceftriaxone susceptibility test by minimum inhibitory concentration <= BANNER Ampicillin/sulbactam susceptibility test by minimum inhibitory concentration <= BANNER Piperacillin/tazobactam susceptibility test by minimum inhibitory concentration <= BANNER Ciprofloxacin susceptibility test by minimum inhibitory concentration >= BANNER Meropenem susceptibility test by minimum inhibitory concentration < = BANNER Nitrofurantoin susceptibility test by minimum inhibitory concentration <= BANNER Aztreonam susceptibility test by minimum inhibitory concentration < = [facility] Extended spectrum beta lactamase (ESBL) producing bacteria susceptibility test by minimum inhibitory concentration - BAN[facility] Comprehensive Metabolic Panel - 10/13/16 16:31 Albumin 4.0 g/dL 3.6-5.1 ALP 74 U/L 35-130 ALT 12 U/L 6-45 Anion Gap 16 6-14 AST 14 U/L 2-40 BUN 25 mg/dL 5-25 Calcium 11.1 mg/dL 8.3-10.4 Chloride 89 mmol/L 95-114 CO2 42 mEq/L 22-33 Creat 1.07 mg/dL 0.50-1.50 eGFR 51 mL/min/1.73m2 >59 Globulin 3.9 g/dL 2.3-3.5 Glucose 124 mg/dL 70-110 Osmo 299 280-295 Potassium 4.9 mmol/L 3.5-5.3 Sodium 142 mmol/L 134-148 TBil 0.4 mg/dL 0.2-1.2 TP 7.9 g/dL 6.0-8.3 Urinalysis - 10/13/16 16:48 Icotest N/A Negative Urine-Appearance Clear Clear Urine-Bacteria Trace Urine-Bilirubin Negative Negative Urine-Blood Trace-lysed Negative Urine-Color Yellow Colorless-Lt. Yellow Urine-Epithelial Cells 0-5/HPF Urine-Glucose Negative Negative Urine-Ketones Negative Negative Urine-Leukocytes Negative Negative Urine-Nitrite Negative Negative Urine-pH 6.5 5-8.5 Urine-Protein Negative Negative Urine-RBC 0-2/HPF Urine-Specific [place] 1.010 1.000-1.030 Urine-WBC Negative Urobilinogen 0.2 E.U./dL 0.2-1.0 Comprehensive Metabolic Panel - 11/05/16 10:25 Albumin 3.9 g/dL 3.6-5.1 ALP 65 U/L 35-130 ALT 16 U/L 6-45 Anion Gap 15 6-14 AST 10 U/L 2-40 BUN 22 mg/dL 5-25 Calcium 10.3 mg/dL 8.3-10.4 Chloride 91 mmol/L 95-114 CO2 40 mEq/L 22-33 Creat 1.06 mg/dL 0.50-1.50 eGFR 52 mL/min/1.73m2 >59 Globulin 2.6 g/dL 2.3-3.5 Glucose 105 mg/dL 70-110 Osmo 295 280-295 Potassium 4.7 mmol/L 3.5-5.3 Sodium 141 mmol/L 134-148 TBil 0.6 mg/dL 0.2-1.2 TP 6.5 g/dL 6.0-8.3 BNP - 02/13/17 14:22 BNP 91.10 pg/ml 0.00-100.00 Urinalysis - 02/13/17 14:22 Icotest N/A Negative Urine Volume Urine Volume Sufficient (10mL) Urine Yeast No Yeast present Urine-Appearance Clear Clear Urine-Bacteria Trace Urine-Bilirubin Negative Negative Urine-Blood Negative Negative Urine-Color Yellow Colorless-Lt. Yellow Urine-Epithelial Cells 0-5/HPF Urine-Glucose Negative Negative Urine-Ketones Negative Negative Urine-Leukocytes Negative Negative Urine-Nitrite Negative Negative Urine-Other Urine Saved if Culture Needed (48hrs from time of collection) Urine-pH 5.0 5-8.5 Urine-Protein Negative Negative Urine-RBC Negative Urine-Specific [place] 1.020 1.000-1.030 Urine-WBC Negative Urobilinogen 0.2 E.U./dL 0.2-1.0 Arterial Blood Gas - 02/13/17 15:04 Base 20.00 mmol/L 1.80-4.20 HCO3 46 mmol/L 20-31 O2 Sat 96 4L % 95-100 pCO2 94 mm/Hg 35-45 pH 7.30 7.35-7.45 PO2 95 mm/Hg 80-95 BMP - 02/14/17 07:00 Anion Gap 11 6-14 BUN 22 mg/dL 5-25 Calcium 9.8 mg/dL 8.3-10.4 Chloride 95 mmol/L 95-114 CO2 43 mEq/L 22-33 Creat 0.93 mg/dL 0.50-1.50 eGFR 60 mL/min/1.73m2 >59 Glucose 104 mg/dL 70-110 Osmo 301 280-295 Potassium 4.7 mmol/L 3.5-5.3 Sodium 144 mmol/L 134-148 Arterial blood gas measurement - 03/04/17 11:53 Blood pCO2 84 mm[Hg] 35-45 Blood pO2 112 mm[Hg] 79-93 Arterial blood bicarbonate measurement (moles/volume) 44 mmol/L 23-27 Arterial blood base excess by calculation 16.5 mmol/L - 2.5-2.5 Arterial blood oxygen saturation measurement 99 % 94-100 * Inhaled oxygen flow rate 4 NRG Arterial blood pH measurement with patient temperature correction 7.32 7.37-7.43 Arterial blood carbon dioxide, total measurement (moles/volume) 46.4 mmol/L 21.0-31.0 Body site RT BRACHIAL NRG Assessment of wrist artery patency prior to arterial puncture NA NRG Setting of ventilation mode NO NRG Measurement of body temperature 95.2 NRG Complete blood count (CBC) with automated white blood cell (WBC) differential - 03/04/17 15:30 Blood leukocytes automated count (number/volume) 8.6 10*3/uL 4.3-11.0 Blood erythrocytes automated count (number/volume) 3.84 10*6/uL 4.35-5.85 Venous blood hemoglobin measurement (mass/volume) 11.9 g/dL 11.5-16.0 Blood hematocrit (volume fraction) 41 % 35-52 Automated erythrocyte mean corpuscular volume 107 [foz_us] 80-99 Automated erythrocyte mean corpuscular hemoglobin (mass per erythrocyte) 31 pg 25-34 Automated erythrocyte mean corpuscular hemoglobin concentration measurement ( mass/volume) 29 g/dL 32-36 Automated erythrocyte distribution width ratio 13.8 % 10.0-14.5 Automated blood platelet count (count/volume) 233 10*3/uL 130-400 Automated blood platelet mean volume measurement 11.1 [foz_us] 7.4-10.4 Automated blood neutrophils/100 leukocytes 74 % 42-75 Automated blood lymphocytes/100 leukocytes 15 % 12-44 Blood monocytes/100 leukocytes 10 % 0-12 Automated blood eosinophils/100 leukocytes 1 % 0-10 Automated blood basophils/100 leukocytes 0 % 0-10 Blood neutrophils automated count (number/volume) 6.4 10*3 1.8-7.8 Blood lymphocytes automated count (number/volume) 1.3 10*3 1.0-4.0 Blood monocytes automated count (number/volume) 0.9 10*3 0.0-1.0 Automated eosinophil count 0.1 10*3/uL 0.0-0.3 Automated blood basophil count (count/volume) 0.0 10*3/uL 0.0-0.1 Comprehensive metabolic panel - 03/04/17 15:30 Serum or plasma sodium measurement (moles/volume) 143 mmol/L 135-145 Serum or plasma potassium measurement (moles/volume) 4.2 mmol/L 3.6-5.0 Serum or plasma chloride measurement (moles/volume) 93 mmol/L 98-107 Carbon dioxide 46 mmol/L 21-32 Serum or plasma anion gap determination (moles/volume) 4 mmol/L 5-14 Serum or plasma urea nitrogen measurement (mass/volume) 29 mg/dL 7-18 Serum or plasma creatinine measurement (mass/volume) 1.10 mg/dL 0.60-1.30 Serum or plasma urea nitrogen/creatinine mass ratio 26 NRG Serum or plasma creatinine measurement with calculation of estimated glomerular filtration rate 50 NRG Serum or plasma glucose measurement (mass/volume) 126 mg/dL 70-105 Serum or plasma calcium measurement (mass/volume) 10.7 mg/dL 8.5-10.1 Serum or plasma total bilirubin measurement (mass/volume) 0.4 mg/dL 0.1-1.0 Serum or plasma alkaline phosphatase measurement (enzymatic activity/volume) 67 U/L 40-136 Serum or plasma aspartate aminotransferase measurement (enzymatic activity/ volume) 12 U/L 5-34 Serum or plasma alanine aminotransferase measurement (enzymatic activity/volume ) 15 U/L 0-55 Serum or plasma protein measurement (mass/volume) 7.1 g/dL 6.4-8.2 Serum or plasma albumin measurement (mass/volume) 3.7 g/dL 3.2-4.5 Complete blood count (CBC) with automated white blood cell (WBC) differential - 03/05/17 06:05 Blood leukocytes automated count (number/volume) 7.6 10*3/uL 4.3-11.0 Blood erythrocytes automated count (number/volume) 3.59 10*6/uL 4.35-5.85 Venous blood hemoglobin measurement (mass/volume) 11.2 g/dL 11.5-16.0 Blood hematocrit (volume fraction) 38 % 35-52 Automated erythrocyte mean corpuscular volume 105 [foz_us] 80-99 Automated erythrocyte mean corpuscular hemoglobin (mass per erythrocyte) 31 pg 25-34 Automated erythrocyte mean corpuscular hemoglobin concentration measurement ( mass/volume) 30 g/dL 32-36 Automated erythrocyte distribution width ratio 13.7 % 10.0-14.5 Automated blood platelet count (count/volume) 201 10*3/uL 130-400 Automated blood platelet mean volume measurement 11.6 [foz_us] 7.4-10.4 Automated blood neutrophils/100 leukocytes 91 % 42-75 Automated blood lymphocytes/100 leukocytes 7 % 12-44 Blood monocytes/100 leukocytes 2 % 0-12 Automated blood eosinophils/100 leukocytes 0 % 0-10 Automated blood basophils/100 leukocytes 0 % 0-10 Blood neutrophils automated count (number/volume) 6.9 10*3 1.8-7.8 Blood lymphocytes automated count (number/volume) 0.5 10*3 1.0-4.0 Blood monocytes automated count (number/volume) 0.1 10*3 0.0-1.0 Automated eosinophil count 0.0 10*3/uL 0.0-0.3 Automated blood basophil count (count/volume) 0.0 10*3/uL 0.0-0.1 Whole blood basic metabolic panel - 03/05/17 06:05 Serum or plasma sodium measurement (moles/volume) 143 mmol/L 135-145 Serum or plasma potassium measurement (moles/volume) 5.3 mmol/L 3.6-5.0 Serum or plasma chloride measurement (moles/volume) 94 mmol/L 98-107 Carbon dioxide 43 mmol/L 21-32 Serum or plasma anion gap determination (moles/volume) 6 mmol/L 5-14 Serum or plasma urea nitrogen measurement (mass/volume) 28 mg/dL 7-18 Serum or plasma creatinine measurement (mass/volume) 0.94 mg/dL 0.60-1.30 Serum or plasma urea nitrogen/creatinine mass ratio 30 NRG Serum or plasma creatinine measurement with calculation of estimated glomerular filtration rate 60 NRG Serum or plasma glucose measurement (mass/volume) 176 mg/dL 70-105 Serum or plasma calcium measurement (mass/volume) 10.7 mg/dL 8.5-10.1 Serum or plasma potassium measurement (moles/volume) - 03/05/17 10:45 Serum or plasma potassium measurement (moles/volume) 4.8 mmol/L 3.6-5.0 Serum or plasma calcium measurement (mass/volume) - 03/05/17 10:45 Serum or plasma calcium measurement (mass/volume) 10.5 mg/dL 8.5-10.1 IONIZED CALCIUM (SEND OFF) - 03/05/17 10:45 Blood ionized calcium measurement (mass/volume) 1.32 % 1.16-1.32 Venous blood ionized calcium measurement adjusted to pH 7.4 (moles/volume) 1.34 % 1.16-1.32 pH measurement 7.43 NRG Serum or plasma intact pararthyroid hormone measurement (mass/volume) - 10:45 Serum or plasma intact parathyroid hormone measurement (mass/volume) 61.0 pg/mL 10.0-65.0 Bio-intact parathyroid hormone (PTH) measurement with calcium 10.4 % 8.5-10.5 [facility] - 05/27/17 14:55 Anion Gap 10 6-14 BUN 23 mg/dL 5-25 Calcium 10.4 mg/dL 8.3-10.4 Chloride 95 mmol/L 95-114 CO2 43 mEq/L 22-33 Creat 0.92 mg/dL 0.50-1.50 eGFR 61 mL/min/1.73m2 >59 Glucose 111 mg/dL 70-110 Osmo 299 280-295 Potassium 4.5 mmol/L 3.5-5.3 Sodium 143 mmol/L 134-148 BNP - 07/02/17 10:19 BNP 140.90 pg/ml 0.00-100.00 Urinalysis - 07/02/17 10:19 Icotest N/A Negative Urine Volume Urine Volume Sufficient (10mL) Urine Yeast No Yeast present Urine-Appearance Clear Clear Urine-Bacteria Negative Urine-Bilirubin Negative Negative Urine-Blood Trace-intact Negative Urine-Color Yellow Colorless-Lt. Yellow Urine-Epithelial Cells 0-5/HPF Urine-Glucose Negative Negative Urine-Ketones Trace Negative Urine-Leukocytes Negative Negative Urine-Nitrite Negative Negative Urine-Other Urine Saved if Culture Needed (48hrs from time of collection) Urine-pH 6.5 5-8.5 Urine-Protein Negative Negative Urine-RBC Rare/HPF Urine-Specific [place] 1.020 1.000-1.030 Urine-WBC Nothing Seen on Microscopic Urobilinogen 0.2 E.U./dL 0.2-1.0 CBC with Auto Diff - 07/02/17 10:20 Baso% 0.10 % 0.00-2.50 Eos 0.1 K/uL 0.0-0.7 Eos% 1.3 % 0.0-7.0 Hct 39.0 % 36.0-46.0 Hgb 11.4 g/dL 13.0-15.0 Lym 1.02 K/uL 0.60-3.40 Lym% 13.3 % 10.0-50.0 MCH 31.4 pg 27.0-31.0 MCHC 29.2 g/dL 32.0-36.0 MCV 107.4 fL 80.0-97.0 [place]% 10.1 % 0.0-12.0 MPV 11.2 fL 7.4-10.0 Anny% 75.2 % 37.0-80.0 Plt 217 K/uL 150-400 RBC 3.63 M/uL 3.60-5.00 RDW 14.5 % 11.6-14.8 WBC 7.69 K/uL 5.00-10.00 Anny 5.78 K/uL 2.00-6.90 [place] 0.8 K/uL 0.0-0.9 Baso 0.0 K/uL 0.0-0.2 BMP - 07/03/17 07:00 Anion Gap 10 6-14 BUN 18 mg/dL 5-25 Calcium 10.1 mg/dL 8.3-10.4 Chloride 93 mmol/L 95-114 CO2 43 mEq/L 22-33 Creat 0.89 mg/dL 0.50-1.50 eGFR 63 mL/min/1.73m2 >59 Glucose 117 mg/dL 70-110 Osmo 296 280-295 Potassium 4.4 mmol/L 3.5-5.3 Sodium 142 mmol/L 134-148 Encounters ACCT No. Visit Date/Time Discharge Status Pt. Type Provider Facility Loc./Unit Complaint [id number] 09/15/2017 10:49:00 09/15/2017 23:59:59 CLS Outpatient CHRISSIE CROUCH TRAVEL DIRECTOR Via [facility] RT COPD [id number] 09/15/2017 10:48:00 09/15/2017 23:59:59 CLS Outpatient CHRISSIE CROUCH TRAVEL DIRECTOR [facility] RAD J18.9 PNEUMONIA [id number] 09/08/2017 09:15:00 09/08/2017 23:59:59 CLS Outpatient CHRISSIE CROUCH TRAVEL DIRECTOR [facility] PULM COPD [id number] 07/31/2017 11:55:00 07/31/2017 23:59:59 CLS Outpatient CHRISSIE CROUCH TRAVEL DIRECTOR [facility] RAD COPD,HYPOXEMIA REQUIRING SUPPLEMENTAL OXYGEN [id number] 03/04/2017 14:58:00 03/06/2017 14:56:00 DIS Inpatient OANH GRIFFIN, KALEIGH Benson [facility] 4TH COPD EXACERBATION R/O PNEUMONIA [id number] 03/04/2017 10:51:00 03/04/2017 23:59:59 CLS Outpatient CHRISSIE CROUCH TRAVEL DIRECTOR [facility] LAB J96.20,J44.9,R06.00 ,R09.02 [id number] 02/27/2017 15:30:00 02/27/2017 23:59:59 CLS Preadmit CHRISSIE CROUCH TRAVEL DIRECTOR [facility] RT COPD [id number] 02/27/2017 15:28:00 02/27/2017 23:59:59 CLS Outpatient CHRISSIE CROUCH TRAVEL DIRECTOR [facility] RAD R09.02 J44.9 J96.20 [id number] 05/31/2016 13:57:00 06/02/2016 13:15:00 DIS Inpatient EDGAR GRIFFIN, LUIS Vizcaino [facility] 4TH HYPERCARBIC RESPIRATORY FAILURE [id number] 10/25/2014 12:22:00 10/25/2014 23:59:59 CLS Outpatient MEDARDO SINGH MD [facility] RAD CHRONIC COUGH, COPD [id number] 12/28/2013 14:07:00 12/28/2013 23:59:59 CLS Outpatient MEDARDO SINGH MD [facility] RAD PAIN/RANDA KNEES [id number] 06/18/2013 13:42:00 06/18/2013 23:59:59 CLS Outpatient MEDARDO SINGH MD [facility] LAB HTN [id number] 06/15/2013 13:21:00 06/15/2013 23:59:59 CLS Outpatient MEDARDO SINGH MD [facility] RAD R SHOULDER PAIN [id number] 02/11/2013 13:00:00 04/14/2013 00:01:00 DIS Outpatient MEDARDO SINGH MD [facility] PULM COPD [id number] 11/10/2012 10:00:00 01/13/2013 00:01:00 DIS Outpatient MEDARDO SINGH MD [facility] PULM COPD [id number] 12/22/2012 10:33:00 12/22/2012 23:59:59 CLS Outpatient MEDARDO SINGH MD [facility] LAB DECREASED KIDNEY FUNCTION [id number] 11/24/2012 09:51:00 11/24/2012 23:59:59 CLS Outpatient NATHAN VALDERRAMA [facility] RAD RICO [id number] 05/31/2016 10:09:00 Document Registration [id number] 05/31/2016 10:09:00 Document Registration [id number] 04/15/2013 15:00:00 Document Registration [id number] 06/23/2012 08:19:00 Document Registration [id number] 05/13/2012 08:54:00 Document Registration [id number] 05/06/2012 07:29:00 Document Registration [id number] 04/27/2012 07:12:00 Document Registration [id number] 04/09/2012 09:46:00 Document Registration [id number] 03/16/2012 12:59:00 Document Registration [id number] 03/09/2012 10:20:00 Document Registration [id number] 03/04/2012 13:38:00 Document Registration [id number] 01/15/2012 07:48:00 Document Registration [id number] 02/13/2011 05:34:00 Document Registration [id number] 02/08/2011 08:09:00 Document Registration [id number] 07/02/2017 12:08:00 07/03/2017 16:05:00 [id number] 05/27/2017 14:55:00 05/27/2017 23:59:00 DIS Outpatient MEDARDO SINGH [id number] 02/13/2017 13:39:00 02/14/2017 13:15:00 [facility] [id number] 11/05/2016 10:39:00 11/05/2016 23:59:00 DIS Outpatient MEDARDO SINGH [id number] 10/14/2016 14:05:00 10/14/2016 23:59:00 DIS Outpatient MEDARDO SINGH [id number] 10/13/2016 15:58:00 10/13/2016 18:00:00 DIS Outpatient CRUZ SANTOS [id number] 05/15/2016 13:06:00 05/15/2016 16:35:00 DIS Outpatient Tray [facility] ER [id number] 05/12/2016 18:42:00 05/12/2016 21:30:00 DIS Outpatient Solomon [facility] ER [id number] 05/07/2016 10:41:00 05/07/2016 23:59:00 DIS Outpatient MEDARDO SINGH [id number] 01/22/2017 10:17:22 Document Registration [id number] 05/12/2016 19:55:58 Document Registration [id number] 07/02/2017 12:08:00 Document Registration
[2017-09-30] MEDS ORDERED: LORazepam INJ 2 MG/ML (ATIVAN) VIAL ONE (11:22)
[2017-09-30] MEDS ORDERED: LORazepam INJ 2 MG/ML (ATIVAN) VIAL IVP ONE (11:30)
[2017-09-30 12:19] LABS: BASOPHILS % (AUTO) 0 % (0-10); EOSINOPHILS # (AUTO) 0.1 10^3/uL (0.0-0.3); EOSINOPHILS % (AUTO) 2 % (0-10); HEMATOCRIT 42 % (35-52); HEMOGLOBIN 11.8 G/DL (11.5-16.0); LYMPHOCYTES # (AUTO) 1.1 X 10^3 (1.0-4.0); LYMPHOCYTES % (AUTO) 16 % (12-44); MEAN CORPUSCULAR HEMOGLOBIN 29 PG (25-34); MEAN CORPUSCULAR HGB CONC 28 G/DL (32-36); MEAN CORPUSCULAR VOLUME 104 FL (80-99); MEAN PLATELET VOLUME 12.1 FL (7.4-10.4); MONOCYTES # (AUTO) 0.7 X 10^3 (0.0-1.0); MONOCYTES % (AUTO) 10 % (0-12); NEUTROPHILS % (AUTO) 73 % (42-75); PLATELET COUNT 201 10^3/uL (130-400); RED BLOOD COUNT 4.02 10^6/uL (4.35-5.85); RED CELL DISTRIBUTION WIDTH 14.6 % (10.0-14.5); WHITE BLOOD COUNT 6.9 10^3/uL (4.3-11.0)
--- NOTE | 2017-09-30 12:21 | Diagnostic Imaging Report ---
CLINICAL INDICATION: Patient fell on Friday and denies loss of consciousness. Patient hit left side of head and is a little bit confused. Patient has pain on the left side of the neck and noticed some blood in the left ear today. EXAM: Head CT without IV contrast. Axial CT scan of the cervical spine with sagittal and coronal reformations. COMPARISON: Head CT without IV contrast dated 03/16/2012. FINDINGS: Head CT: There is skull streak artifact which obscures portions of the brainstem and portions of the brain near the skull base. There is no evidence of acute cerebral infarct, intracranial hemorrhage, or gross mass effect. The brain parenchymal volume appears appropriate for patient's age. Stable moderate-sized chronic cerebral infarct involving the right cerebral hemisphere in the right MCA distribution. Again seen focal and patchy areas of low-attenuation white matter changes in both cerebral hemispheres, likely representing chronic small vessel ischemic disease. There is normal humphries-white matter distinction. There is no significant midline shift or herniation. There is no evidence of hydrocephalus. The basal cisterns are unremarkable. The skull, extracranial soft tissue, and orbits are unremarkable. The paranasal sinuses are unremarkable. Temporal bones show no significant abnormality. Cervical spine: There is no acute cervical spine fracture or dislocation. There is abnormal straightening of the cervical spine posture. There are vertebral body spurs with suggestion of diffuse disc bulges involving the C5-C6 and C6-C7 levels with aeid-eg-nngoqoyx loss of intervertebral disc height. There is at least mild C5-C6 and C6-C7 central canal and right neural foramen narrowing. Neck soft tissue shows no significant abnormality. IMPRESSION: 1: Stable CT scan of the brain with no evidence of acute intracranial process. There is no intracranial bleed or skull fracture. 2: Cervical spine degenerative disease with no acute cervical spine fracture or dislocation. Dictated by: Dictated on workstation # [id number]
[2017-09-30 12:36] LABS: ALBUMIN 3.8 GM/DL (3.2-4.5); BILIRUBIN,TOTAL 0.4 MG/DL (0.1-1.0); CALCIUM 10.2 MG/DL (8.5-10.1); CREATININE SERUM 0.93 MG/DL (0.60-1.30); POTASSIUM 4.8 MMOL/L (3.6-5.0); TOTAL PROTEIN 6.9 GM/DL (6.4-8.2)
[2017-09-30 12:45] LABS: BILIRUBIN,URINE NEGATIVE (NEGATIVE); CLARITY,URINE CLEAR; COLOR,URINE YELLOW; GLUCOSE, URINE (UA) NEGATIVE (NEGATIVE); KETONES,URINE NEGATIVE (NEGATIVE); LEUKOCYTE ESTERASE ,URINE NEGATIVE (NEGATIVE); NITRITE,URINE NEGATIVE (NEGATIVE); PH,URINE 5 (5-9); PROTEIN,URINE NEGATIVE (NEGATIVE); UROBILINOGEN,URINE NORMAL (NORMAL)
[2017-09-30 12:52] LABS: BACTERIA,URINE NEGATIVE /HPF
--- NOTE | 2017-09-30 13:25 | Diagnostic Imaging Report ---
Indication: Frequent falls with left leg injury and bruising. AP and lateral views of the left lower leg are obtained. There is no evidence of fracture or malalignment. No abnormal lytic or sclerotic focus is detected. There does appear to be diffuse edema of subcutaneous tissues. Impression: Edema and/or contusion without acute osseous abnormality identified. Dictated by: Dictated on workstation # [id number]
--- NOTE | 2017-09-30 13:26 | Diagnostic Imaging Report ---
INDICATION: Frequent falls. COMPARISON: None. FINDINGS: Two radiographic views of the left humerus were obtained. There is acute appearing mildly displaced transversely oriented fracture of the proximal left humerus due to surgical neck. Glenohumeral joint space appears maintained. Included portions of the left hemithorax are unremarkable. No unexpected radiopaque foreign bodies are seen. IMPRESSION: 1. Acute appearing mildly displaced fracture of the proximal left humerus as described above. Dictated by: Dictated on workstation # [id number]
--- NOTE | 2017-09-30 13:35 | ED General ---
General Chief Complaint: Ear Problems Stated Complaint: FELL FRIDAY, BLEEDING IN HER EAR Nursing Triage Note: SENT HERE TODAY FROM DR RUIZ OFFICE. PT REPORTS FREQUENT FALLS WITH LAST FALL BEING FRIDAY AM. DENIES LOC. HAS PAIN ON LEFT SIDE FROM FALL BUT TODAY NOTICED BLOOD IN HER LEFT EAR AND HAVING A LITTLE BIT OF CONFUSION. Nursing Sepsis Screen: No Definite Risk Source of Information: Patient Exam Limitations: No Limitations History of Present Illness Date Seen by Provider: September 30, 2017 Time Seen by Provider: 12:10 Initial Comments Here from clinic with report of fall a few days ago and blood in the left ear canal. Was seen by Dr. Dorman today. He was concerned about the blood in the fall. Also has bruising on the left upper arm and left lower leg. Fall apparently happened on Friday. Blood noticed this morning. Complains of pain to the area of the left upper arm and the left lower leg just below the knee. Has had some confusion. Patient is moving to assisted living currently. No report of nausea or vomiting. No report of diarrhea or fever. Has been more weak over the last several weeks. Timing/Duration: 1-2 Days Severity: Moderate Modifying Factors: worse with Movement; improves with Rest Associated Systoms: No Chest Pain, No Cough, No Fever/Chills, No Nausea/ Vomiting, No Shortness of Air; Weakness Allergies and Home Medications Allergies Coded Allergies: No Known Drug Allergies (Unverified , 02/08/11) Home Medications Albuterol Sulfate 1 Puff Puff, 2 PUFF IH Q4H PRN for SHORTNESS OF BREATH, ( Reported) 1 PUFF = 90 MCG Aspirin 325 Mg Tablet.dr, 325 MG PO DAILY, (Reported) Budesonide/Formoterol Fumarate 10.2 Gm Hfa.aer.ad, 2 PUFF IH BID, (Reported) Docusate Sodium 100 Mg Capsule, 100 MG PO DAILY, (Reported) Escitalopram Oxalate 10 Mg Tablet, 10 MG PO HS, (Reported) LAST FILLED #30 01-10-17 Fluticasone Propionate 9.9 Ml Fraser.susp, 2 SPRAYS NS DAILY PRN for CONGESTION, (Reported) Lactulose 10 Gm/15 Ml Solution, 15-30 ML PO DAILY PRN for CONSTIPATION-3RD LINE, (Reported) Meloxicam 15 Mg Tablet, 15 MG PO DAILY, (Reported) Polyethylene Glycol 3350 17 Gm Powd.pack, 17 GM PO DAILY PRN for CONSTIPATION- 2ND LINE, (Reported) Pravastatin Sodium 40 Mg Tablet, 40 MG PO HS, (Reported) LAST FILLED #30 IN [place] Prednisone 10 Mg Tab.ds.pk, 10 MG PO DAILY Take 6 tabs(60mg)daily,decrease by 1 tab(10mg)every other day. Prescribed by: KALEIGH HUGO on 03/06/17 1000 Ropinirole HCl 1 Mg Tablet, 1 MG PO HS, (Reported) Sennosides 8.6 Mg Tablet, 8.6 MG PO DAILY PRN for CONSTIPATION-5TH LINE, ( Reported) Tiotropium [place] 1 Inh Aerp, 1 CAP IH DAILY, (Reported) Tramadol HCl 50 Mg Tablet, 50 MG PO Q8H PRN for PAIN-MODERATE, (Reported) Patient Home Medication List Home Medication List Reviewed: Yes Review of Systems Constitutional: see HPI; No chills, No fever EENTM: see HPI, ear discharge; No ear pain Respiratory: No cough, No dyspnea on exertion Cardiovascular: No chest pain, No edema Gastrointestinal: No abdominal pain, No nausea, No vomiting Genitourinary: no symptoms reported Musculoskeletal: see HPI, joint pain, joint swelling, muscle pain Skin: change in color; No lesions Psychiatric/Neurological: See HPI; Denies Headache; Weakness All Other Systems Reviewed Negative Unless Noted: Yes Past Crkqfls-Qddzha-Wsargf Hx Past Med/Social Hx: Reviewed Nursing Past Med/Soc Hx Patient Social History Alcohol Use: Denies Use Recreational Drug Use: No Smoking Status: Former Smoker Former Smoker, Quit: Sep 09, 2011 Recent Foreign Travel: No Contact w/Someone Who Travel: No Recent Infectious Disease Expo: No Recent Hopitalizations: Yes Immunizations Up To Date Date of Pneumonia Vaccine: Mar 06, 2012 Date of Influenza Vaccine: Feb 27, 2017 Seasonal Allergies Seasonal Allergies: No Past Medical History Surgeries: No Respiratory: Yes Sleep Apnea, COPD Currently Using CPAP: Yes Currently Using BIPAP: No Cardiac: Yes Hypertension Neurological: No Reproductive Disorders: No Sexually Transmitted Disease: No HIV/AIDS: No Genitourinary: Yes Kidney Stones Gastrointestinal: Yes Gastroesophageal Reflux Musculoskeletal: Yes Arthritis Endocrine: No HEENT: No Cancer: No Psychosocial: No Sleep Difficulties, Anxiety, Depression Integumentary: No Psoriasis Blood Disorders: No Family Medical History Reviewed Nursing Family Hx Alcoholism Cardiovascular disease Colon cancer Hypertension No Pertinent Family Hx Physical Exam Vital Signs Vital Signs - First Documented 09/30/17 10:50 Temp 99.1 Pulse 68 Resp 16 B/P (MAP) 108/51 (70) Pulse Ox 97 Capillary Refill : Less Than 3 Seconds General Appearance: No Apparent Distress, WD/WN HEENT: PERRL/EOMI, TMs Normal, Normal ENT Inspection, Pharynx Normal Neck: Non Tender, Supple Respiratory: Lungs Clear, Normal Breath Sounds Cardiovascular: Regular Rate, Rhythm, No Murmur Gastrointestinal: Non Tender, Soft Back: Normal Inspection, No CVA Tenderness, No Vertebral Tenderness Extremity: Other (tenderness and bruising noted to the left upper arm. Tender at the proximal humerus. Tender over the left leg just distal to the knee and there is a fair amount of bruising at that area as well. She is able to stand and walk without difficulty.) Neurologic/Psychiatric: Alert, Oriented x3, Normal Mood/Affect Skin: Warm/Dry, Ecchymosis (left upper arm and left leg) Progress/Results/Core Measures Suspected Sepsis Recent Fever Within 48 Hours: No Infection Criteria Present: None New/Unexplained Altered Menta: No Sepsis Screen: No Definite Risk SIRS Temperature:99.1 Pulse: 68 Respiratory Rate: 16 Laboratory Tests 09/30/17 10:55: White Blood Count 6.9 Blood Pressure 108 /51 Mean: 70 Laboratory Tests 09/30/17 10:55: Creatinine 0.93, Platelet Count 201, Total Bilirubin 0.4 Results/Orders Lab Results Laboratory Tests Test 09/30/17 10:55 09/30/17 12:30 Range/Units White Blood Count 6.9 4.3-11.0 10^3/uL Red Blood Count 4.02 L 4.35-5.85 10^6/uL Hemoglobin 11.8 11.5-16.0 G/DL Hematocrit 42 35-52 % Mean Corpuscular Volume 104 H 80-99 FL Mean Corpuscular Hemoglobin 29 25-34 PG Mean Corpuscular Hemoglobin Concent 28 L 32-36 G/DL Red Cell Distribution Width 14.6 H 10.0-14.5 % Platelet Count 201 130-400 10^3/uL Mean Platelet Volume 12.1 H 7.4-10.4 FL Neutrophils (%) (Auto) 73 42-75 % Lymphocytes (%) (Auto) 16 12-44 % Monocytes (%) (Auto) 10 0-12 % Eosinophils (%) (Auto) 2 0-10 % Basophils (%) (Auto) 0 0-10 % Neutrophils # (Auto) 5.0 1.8-7.8 X 10^3 Lymphocytes # (Auto) 1.1 1.0-4.0 X 10^3 Monocytes # (Auto) 0.7 0.0-1.0 X 10^3 Eosinophils # (Auto) 0.1 0.0-0.3 10^3/uL Basophils # (Auto) 0.0 0.0-0.1 10^3/uL Sodium Level 141 135-145 MMOL/L Potassium Level 4.8 3.6-5.0 MMOL/L Chloride Level 94 L 98-107 MMOL/L Carbon Dioxide Level 39 H 21-32 MMOL/L Anion Gap 8 5-14 MMOL/L Blood Urea Nitrogen 25 H 7-18 MG/DL Creatinine 0.93 0.60-1.30 MG/DL Estimat Glomerular Filtration Rate 60 BUN/Creatinine Ratio 27 Glucose Level 162 H 70-105 MG/DL Calcium Level 10.2 H 8.5-10.1 MG/DL Total Bilirubin 0.4 0.1-1.0 MG/DL Aspartate Amino Transf (AST/SGOT) 12 5-34 U/L Alanine Aminotransferase (ALT/SGPT) 10 0-55 U/L Alkaline Phosphatase 58 40-136 U/L Total Protein 6.9 6.4-8.2 GM/DL Albumin 3.8 3.2-4.5 GM/DL Urine Color YELLOW Urine Clarity CLEAR Urine pH 5 5-9 Urine Specific [place] 1.015 L 1.016-1.022 Urine Protein NEGATIVE NEGATIVE Urine Glucose (UA) NEGATIVE NEGATIVE Urine Ketones NEGATIVE NEGATIVE Urine Nitrite NEGATIVE NEGATIVE Urine Bilirubin NEGATIVE NEGATIVE Urine Urobilinogen NORMAL NORMAL MG/DL Urine Leukocyte Esterase NEGATIVE NEGATIVE Urine RBC (Auto) NEGATIVE NEGATIVE Urine RBC NONE /HPF Urine WBC NONE /HPF Urine Squamous Epithelial Cells 2-5 /HPF Urine Crystals NONE /LPF Urine Bacteria NEGATIVE /HPF Urine Casts NONE /LPF Urine Mucus NEGATIVE /LPF Urine Culture Indicated NO My Orders Orders - KAZ HORNER MD Ct Head/Cervical Spine Wo (09/30/17 10:36) Lorazepam Injection (Ativan Injection) (09/30/17 11:30) Lorazepam Injection (Ativan Injection) (09/30/17 11:22) Cbc With Automated Diff (09/30/17 12:15) Comprehensive Metabolic Panel (09/30/17 12:15) Humerus, Left, 2 Views (09/30/17 12:39) Tibia/Fibula, Left, 2 Views (09/30/17 12:39) Ua Culture If Indicated (09/30/17 12:39) Medications Given in ED Current Medications Medications Dose Ordered Sig/Saleem Route Start Time Stop Time Status Last Admin Dose Admin Lorazepam 0.5 mg ONCE ONCE IVP 09/30/17 11:30 09/30/17 11:31 DC 09/30/17 11:30 0.5 MG Vital Signs/I&O 09/30/17 10:50 Temp 99.1 Pulse 68 Resp 16 B/P (MAP) 108/51 (70) Pulse Ox 97 Capillary Refill : Less Than 3 Seconds Blood Pressure Mean: 70 Progress Note : Progress Note Seen and evaluated. IV, labs, CT head and neck ordered. Ativan 0.5 mg IV to assist with patient to lay back during CT. This was done. Additional orders for labs, UA, x-ray of the left humerus and left tib-fib complete. Fracture noted of the proximal humerus. Sling applied. Patient will follow-up with orthopedist of her choice. Given information for Dr. Urbina and we will send copy of the chart to him. Discharged home with return precautions. Patient and caregiver verbalize understanding instructions and agreement with plan. Diagnostic Imaging Diagonstic Imaging: Xray Plain Films/CT/US/NM/MRI: other Comments VIA [facility]. [place], [place] NAME: ANGIE ORDONEZ [facility] REC#: [id number] PT STATUS: REG ER : 1950 PHYSICIAN: KAZ HORNER MD ADMIT DATE: 09/30/17/ER Draft Date of Exam:09/30/17 HUMERUS, LEFT, 2 VIEWS INDICATION: Frequent falls. COMPARISON: None. FINDINGS: Two radiographic views of the left humerus were obtained. There is acute appearing mildly displaced transversely oriented fracture of the proximal left humerus due to surgical neck. Glenohumeral joint space appears maintained. Included portions of the left hemithorax are unremarkable. No unexpected radiopaque foreign bodies are seen. IMPRESSION: 1. Acute appearing mildly displaced fracture of the proximal left humerus as described above. Dictated on workstation # [id number] Dict: 09/30/17 1323 Trans: 09/30/17 1326 [id number] Interpreted by: DENISSE WILL MD Electronically signed by: Reviewed: Reviewed by Me Diagonstic Imaging: Xray Plain Films/CT/US/NM/MRI: leg [facility] [place] [place] NAME: ANGIE ORDONEZ [facility] REC#: [id number] PT STATUS: REG ER : 1950 PHYSICIAN: KAZ HORNER MD ADMIT DATE: 09/30/17/ER Draft Date of Exam:09/30/17 TIBIA/FIBULA, LEFT, 2 VIEWS Indication: Frequent falls with left leg injury and bruising. AP and lateral views of the left lower leg are obtained. There is no evidence of fracture or malalignment. No abnormal lytic or sclerotic focus is detected. There does appear to be diffuse edema of subcutaneous tissues. Impression: Edema and/or contusion without acute osseous abnormality identified. Dictated on workstation # [id number] Dict: 09/30/17 1322 Trans: 09/30/17 1325 [facility] [id number] Interpreted by: NAHID MA MD Electronically signed by: Reviewed: Reviewed by Me Diagonstic Imaging: CT Plain Films/CT/US/NM/MRI: c-spine, head Comments [facility] [place], [place] NAME: ANGIE ORDONEZ [facility] REC#: [id number] PT STATUS: REG ER : 1950 PHYSICIAN: KAZ HORNER MD ADMIT DATE: 09/30/17/ER Draft Date of Exam:09/30/17 CT HEAD/CERVICAL SPINE WO CLINICAL INDICATION: Patient fell on Friday and denies loss of consciousness. Patient hit left side of head and is a little bit confused. Patient has pain on the left side of the neck and noticed some blood in the left ear today. EXAM: Head CT without IV contrast. Axial CT scan of the cervical spine with sagittal and coronal reformations. COMPARISON: Head CT without IV contrast dated 03/16/2012. FINDINGS: Head CT: There is skull streak artifact which obscures portions of the brainstem and portions of the brain near the skull base. There is no evidence of acute cerebral infarct, intracranial hemorrhage, or gross mass effect. The brain parenchymal volume appears appropriate for patient's age. Stable moderate-sized chronic cerebral infarct involving the right cerebral hemisphere in the right MCA distribution. Again seen focal and patchy areas of low-attenuation white matter changes in both cerebral hemispheres, likely representing chronic small vessel ischemic disease. There is normal humphries-white matter distinction. There is no significant midline shift or herniation. There is no evidence of hydrocephalus. The basal cisterns are unremarkable. The skull, extracranial soft tissue, and orbits are unremarkable. The paranasal sinuses are unremarkable. Temporal bones show no significant abnormality. Cervical spine: There is no acute cervical spine fracture or dislocation. There is abnormal straightening of the cervical spine posture. There are vertebral body spurs with suggestion of diffuse disc bulges involving the C5-C6 and C6-C7 levels with wtml-yz-cmaxzknv loss of intervertebral disc height. There is at least mild C5-C6 and C6-C7 central canal and right neural foramen narrowing. Neck soft tissue shows no significant abnormality. IMPRESSION: 1: Stable CT scan of the brain with no evidence of acute intracranial process. There is no intracranial bleed or skull fracture. 2: Cervical spine degenerative disease with no acute cervical spine fracture or dislocation. Dictated on workstation # [id number] Dict: 09/30/17 1208 Trans: 09/30/17 1221 [id number] Interpreted by: SUELLEN CONNER MD Electronically signed by: Departure Impression Primary Impression: Closed fracture of left proximal humerus Qualified Codes: S42.295A - Other nondisplaced fracture of upper end of left humerus, initial encounter for closed fracture Additional Impressions: Contusion of left lower extremity Qualified Codes: S80.12XA - Contusion of left lower leg, initial encounter Falls Qualified Codes: W19.XXXA - Unspecified fall, initial encounter Disposition: 01 HOME, SELF-CARE Condition: Improved Departure-Patient Inst. Decision time for Depature: 13:38 Referrals: MEDARDO SINGH MD (PCP/Family) Primary Care Physician JENNIFER URBINA MD Patient Instructions: Contusion (DC), Upper Arm Fracture Add. Discharge Instructions: All discharge instructions reviewed with patient and/or family. Voiced understanding. Continue medications as previously prescribed. Follow-up with Dr. Urbina or orthopedist of your choice within one week for recheck and further evaluation. Keep sling in place at all times except when showering. Return for worse pain, fever, vomiting, weakness, breathing problems or other concerns as needed. Copy Copies To 1: JENNIFER URBINA MD, TIMOTHY D MD September 30, 2017 13:35
[2017-09-30 13:43] VITALS: BP 105/47
== END 2017-09-30 13:43 | disposition home or self-care (01) ==
LOC: EDUNIT# 10:28 → ER 10:31
DX: S42.295A Other nondisplaced fracture of upper end of left humerus, initial encounter for closed fracture (principal); J44.9 Chronic obstructive pulmonary disease, unspecified; G47.30 Sleep apnea, unspecified; I10 Essential (primary) hypertension; K21.9 Gastro-esophageal reflux disease without esophagitis; F41.9 Anxiety disorder, unspecified; F32.9 Major depressive disorder, single episode, unspecified; Z87.442 Personal history of urinary calculi; Z79.82 Long term (current) use of aspirin; Z79.52 Long term (current) use of systemic steroids; Z87.891 Personal history of nicotine dependence; W19.XXXA Unspecified fall, initial encounter
CPT/HCPCS: 36415; 70450; 72125; 73060; 73590; 80053; 81000; 85025; 96374

== ENCOUNTER 2017-10-16 08:01 | Inpatient (IN) | payer MEDICARE ==
[~2017-10-16] VITALS: Ht 172.7 cm; Wt 123.5 kg
[2017-10-16] VITALS (9 sets, daily range): BP systolic 90–128; BP diastolic 59–78
--- NOTE | 2017-10-16 08:16 | ED Respiratory ---
General Chief Complaint: Respiratory Problems Stated Complaint: LETHARGIC History of Present Illness Date Seen by Provider: October 16, 2017 Initial Comments Patient is a 67-year-old female who was brought in by her sister to the emergency room for complaints of being lethargic and short of breath. The patient lives at the [facility] and her sister reports she was visiting from out of town and states that she has been like this since she was arrived last night her sister reports that she fell in the bathtub a few days ago and has a bruise to the left lower leg and the staff reported she has been having strong smelling urine. The patient is able to follow commands, and reports that she is short of breath, and did not sleep with her CPAP last night. She wears 4 L of O2 via nasal cannula at all times. The patient is confused as to what day of the week and month we are in. Timing/Duration: yesterday Severity: moderate Prior Episodes/Possible Cause: frequent episodes Modifying Factors: Worse With Activity; Improves With Oxygen, Improves With Rest Associated Symptoms: lightheadedness, shortness of breath (ANT MORRIS STUDENT) Time Seen by Provider: 08:10 Associated Symptoms: No fever/chills, No nasal congestion (KAZ HORNER MD) Allergies and Home Medications Allergies Coded Allergies: No Known Drug Allergies (Unverified , 02/08/11) Home Medications Albuterol Sulfate 2.5 Mg/3 Ml Vial.neb, 2.5 MG NEB Q4H PRN for SHORTNESS OF BREATH, (Reported) Aspirin 325 Mg Tablet.dr, 325 MG PO DAILY, (Reported) Budesonide/Formoterol Fumarate 10.2 Gm Hfa.aer.ad, 2 PUFF IH BID, (Reported) Buspirone HCl 15 Mg Tablet, 15 MG PO HS, (Reported) Docusate Sodium 100 Mg Capsule, 100 MG PO DAILY, (Reported) Escitalopram Oxalate 10 Mg Tablet, 10 MG PO DAILY, (Reported) Fluticasone Propionate 9.9 Ml [place].susp, 2 SPRAYS NS DAILY PRN for CONGESTION, (Reported) Furosemide 20 Mg Tablet, 20 MG PO DAILY, (Reported) L.acidoph & Paracasei,B.lactis 1 Each Capsule, 1 CAP PO DAILY, (Reported) Lisinopril 5 Mg Tablet, 5 MG PO DAILY, (Reported) Meloxicam 15 Mg Tablet, 15 MG PO DAILY, (Reported) Omeprazole 40 Mg Capsule.dr, 40 MG PO DAILY, (Reported) Polyethylene Glycol 3350 17 Gm Powd.pack, 17 GM PO DAILY PRN for CONSTIPATION- 2ND LINE, (Reported) Potassium Chloride 10 Meq Tablet.er, 10 MEQ PO DAILY, (Reported) Pravastatin Sodium 40 Mg Tablet, 40 MG PO HS, (Reported) Ropinirole HCl 1 Mg Tablet, 1 MG PO HS, (Reported) Patient Home Medication List Home Medication List Reviewed: Yes (ANT MORRIS) Home Medication List Reviewed: Yes (KAZ HORNER MD) Review of Systems Constitutional: see HPI, malaise, weakness EENTM: no symptoms reported Respiratory: see HPI, dyspnea on exertion, short of breath Cardiovascular: see HPI Gastrointestinal: see HPI Genitourinary: see HPI, other (strong smelling urine) Musculoskeletal: see HPI, other (bruise to left lower leg. ) Skin: see HPI Psychiatric/Neurological: See HPI Hematologic/Lymphatic: See HPI Immunological/Allergic: see HPI (x-ray of the lower bruise there slowly about the left bowel 4 mm and was somebody told so is left now she) (ANT MORRIS) Skin: see HPI, change in color (bruising noted to left lower extremity between the knee and ankle bilaterally) (KAZ HORNER MD) All Other Systems Reviewed Negative Unless Noted: Yes (KAZ HORNER MD) Past Bfazzai-Zgbknq-Bwjehl Hx Past Med/Social Hx: Reviewed Nursing Past Med/Soc Hx (KAZ HORNER MD) Patient Social History Former Smoker, Quit: Sep 09, 2011 Recent Hopitalizations: Yes (ANT MORRIS) Immunizations Up To Date Date of Pneumonia Vaccine: Mar 06, 2012 Date of Influenza Vaccine: Feb 27, 2017 (ANT MORRIS) Seasonal Allergies Seasonal Allergies: No (ANT MORRIS) Past Medical History Surgeries: No Respiratory: Yes Sleep Apnea, COPD Currently Using CPAP: Yes Currently Using BIPAP: No Cardiac: Yes Hypertension Neurological: No Reproductive Disorders: No Sexually Transmitted Disease: No HIV/AIDS: No Genitourinary: Yes Kidney Stones Gastrointestinal: Yes Gastroesophageal Reflux Musculoskeletal: Yes Arthritis Endocrine: No HEENT: No Cancer: No Psychosocial: No Sleep Difficulties, Anxiety, Depression Integumentary: No Psoriasis Blood Disorders: No (ANT MORRIS STUDENT) Family Medical History Reviewed Nursing Family Hx (KAZ HORNER MD) Alcoholism Cardiovascular disease Colon cancer Hypertension No Pertinent Family Hx (ANT MORRIS) Physical Exam Vital Signs Vital Signs - First Documented 10/16/17 08:01 Temp 98.0 Pulse 90 Resp 24 B/P (MAP) 142/75 (97) Pulse Ox 96 O2 Delivery Nasal Cannula O2 Flow Rate 3.00 (KAZ HORNER MD) Vital Signs Capillary Refill : (ANT MORRIS STUDENT) Eyes: Bilateral Eye Abnormal Pupil HEENT: normal ENT inspection, TMs normal, pharynx normal Neck: non-tender, full range of motion Respiratory: chest non-tender, lungs clear, normal breath sounds, no respiratory distress, no accessory muscle use Cardiovascular: regular rate, rhythm, no edema, no gallop, no JVD, no murmur Gastrointestinal: normal bowel sounds, non tender, soft, no organomegaly, no pulsatile mass Extremities: normal range of motion, non-tender, normal inspection, no pedal edema, no calf tenderness, other (brusing to the left lower leg.) Neurologic/Psychiatric: other (disoriented x2. oriented to place. easily awaken to name.) Skin: normal color, warm/dry, ecchymosis (ANT MORRIS STUDENT) General Appearance: WD/WN, mild distress, obese Neurologic/Psychiatric: No facial droop; other (disoriented x2. oriented to place. easily awaken to name.) (KAZ HORNER MD) Progress/Results/Core Measures Suspected Sepsis SIRS Temperature: Pulse: Respiratory Rate: Laboratory Tests 10/16/17 08:10: White Blood Count 8.9 Blood Pressure / Mean: Laboratory Tests 10/16/17 08:10: Creatinine 0.87, Platelet Count 216, Total Bilirubin 0.4 (ANT MORRIS STUDENT) Results/Orders Lab Results Laboratory Tests Test 10/16/17 08:10 10/16/17 08:30 10/16/17 10:05 Range/Units White Blood Count 8.9 4.3-11.0 10^3/uL Red Blood Count 3.92 L 4.35-5.85 10^6/uL Hemoglobin 11.4 L 11.5-16.0 G/DL Hematocrit 42 35-52 % Mean Corpuscular Volume 107 H 80-99 FL Mean Corpuscular Hemoglobin 29 25-34 PG Mean Corpuscular Hemoglobin Concent 27 L 32-36 G/DL Red Cell Distribution Width 14.6 H 10.0-14.5 % Platelet Count 216 130-400 10^3/uL Mean Platelet Volume 10.7 H 7.4-10.4 FL Neutrophils (%) (Auto) 76 H 42-75 % Lymphocytes (%) (Auto) 14 12-44 % Monocytes (%) (Auto) 9 0-12 % Eosinophils (%) (Auto) 1 0-10 % Basophils (%) (Auto) 0 0-10 % Neutrophils # (Auto) 6.7 1.8-7.8 X 10^3 Lymphocytes # (Auto) 1.2 1.0-4.0 X 10^3 Monocytes # (Auto) 0.8 0.0-1.0 X 10^3 Eosinophils # (Auto) 0.1 0.0-0.3 10^3/uL Basophils # (Auto) 0.0 0.0-0.1 10^3/uL Sodium Level 143 135-145 MMOL/L Potassium Level 5.5 H 3.6-5.0 MMOL/L Chloride Level 97 L 98-107 MMOL/L Carbon Dioxide Level 39 H 21-32 MMOL/L Anion Gap 7 5-14 MMOL/L Blood Urea Nitrogen 20 H 7-18 MG/DL Creatinine 0.87 0.60-1.30 MG/DL Estimat Glomerular Filtration Rate > 60 BUN/Creatinine Ratio 23 Glucose Level 140 H 70-105 MG/DL Calcium Level 10.2 H 8.5-10.1 MG/DL Magnesium Level 2.4 1.8-2.4 MG/DL Total Bilirubin 0.4 0.1-1.0 MG/DL Aspartate Amino Transf (AST/SGOT) 16 5-34 U/L Alanine Aminotransferase (ALT/SGPT) 18 0-55 U/L Alkaline Phosphatase 70 40-136 U/L Total Protein 7.0 6.4-8.2 GM/DL Albumin 3.8 3.2-4.5 GM/DL Blood Gas Puncture Site RIGHT RADIAL Blood Gas Patient Temperature 98 Arterial Blood pH 7.24 *L 7.37-7.43 Arterial Blood Partial Pressure CO2 105 *H 35-45 MMHG Arterial Blood Partial Pressure O2 95 H 79-93 MMHG Arterial Blood HCO3 44 *H 23-27 MMOL/L Arterial Blood Total CO2 47.0 H 21.0-31.0 MMOL/L Arterial Blood Oxygen Saturation 98 94-100 % Arterial Blood Base Excess 15.9 H -2.5-2.5 MMOL/L Isauro Test YES-POS Blood Gas Ventilator Setting NO Blood Gas Inspired Oxygen 3 Urine Color YELLOW Urine Clarity CLEAR Urine pH 6 5-9 Urine Specific [place] 1.020 1.016-1.022 Urine Protein 2+ H NEGATIVE Urine Glucose (UA) NEGATIVE NEGATIVE Urine Ketones NEGATIVE NEGATIVE Urine Nitrite NEGATIVE NEGATIVE Urine Bilirubin NEGATIVE NEGATIVE Urine Urobilinogen 1 NORMAL MG/DL Urine Leukocyte Esterase NEGATIVE NEGATIVE Urine RBC (Auto) 1+ H NEGATIVE Urine RBC 2-5 H /HPF Urine WBC NONE /HPF Urine Squamous Epithelial Cells RARE /HPF Urine Crystals NONE /LPF Urine Bacteria TRACE /HPF Urine Casts NONE /LPF Urine Mucus NEGATIVE /LPF Urine Culture Indicated NO (KAZ HORNER MD) My Orders Orders - KAZ HORNER MD Arterial Blood Gas (10/16/17 08:09) Cbc With Automated Diff (10/16/17 08:09) Comprehensive Metabolic Panel (10/16/17 08:09) Magnesium (10/16/17 08:09) Ua Culture If Indicated (10/16/17 08:09) Chest 1 View, Ap/Pa Only (10/16/17 08:09) Sao2 W/End-Tidal Monitoring (O Q15M (10/16/17 08:09) Ct Head Wo (10/16/17 08:17) Tibia/Fibula, Left, 2 Views (10/16/17 08:17) Lorazepam Injection (Ativan Injection) (10/16/17 09:45) Methylprednisolone Sod Succ (Solu-Medrol (10/16/17 10:41) Albuterol/Ipra Inhalation Soln (Duoneb I (10/16/17 10:45) Svn Small Volume Nebulizer (10/16/17 10:43) Albuterol/Ipra Inhalation Soln (Duoneb I (10/16/17 10:40) (KAZ HORNER MD) Medications Given in ED Current Medications Medications Dose Ordered Sig/Saleem Route Start Time Stop Time Status Last Admin Dose Admin Albuterol/ Ipratropium 3 ml ONCE ONCE INH 10/16/17 10:45 10/16/17 10:46 DC 10/16/17 10:30 3 ML Lorazepam 1 mg ONCE ONCE IVP 10/16/17 09:45 10/16/17 09:46 DC 10/16/17 09:39 1 MG (KAZ HORNER MD) Vital Signs/I&O 10/16/17 10/16/17 10/16/17 08:01 08:01 08:50 Temp 98.0 Pulse 90 82 Resp 24 21 B/P (MAP) 142/75 (97) Pulse Ox 96 95 O2 Delivery Nasal Cannula Nasal Cannula O2 Flow Rate 3.00 3.00 (KAZ HORNER MD) Vital Signs/I&O Capillary Refill : (ANT MORRIS STUDENT) Progress Note : Time: 08:56 Progress Note The patient's ABG resulted in a CO2 of 105 respiratory therapy was called at this time to place the patient on BiPAP. (ANT MORRIS STUDENT) Progress Note : Progress Note I have seen and evaluated the patient and agree with above except as indicated. I have directed the plan of care. Patient is here because sister brought her firm care facility due to confusion. This was noted last night and continues today. Patient did not wear her CPAP last night and sister states that when she gets confused she will not wear it but it is the thing that she needs most. Also report of fall a few days ago. Patient denies hitting her head but she does have a large bruise to the left lower extremity lateral aspect below the knee. There is also report of strong or foul-smelling urine per the sister. We will check labs, UA, CT of the head and x-ray of the left tib-fib region. Patient does stand for transfers but essentially is wheelchair bound otherwise. 1037: I discussed the case with the hospitalist on-call, Dr. Sunshine. Due to patient's elevated CO2 and requirement for BiPAP, patient will be admitted, inpatient status. Patient does have COPD. She requests that I discussed the case with Dr. Dorman, marketing proposal coordinator second language tutor. I did call and talk with him at 1040. Patient does have a history of COPD. We will initiate treatment for that as this may be part of the exacerbation factors. Solu-Medrol 125 mg IV ordered and given. Patient remains on BiPAP. She does have anxiety related to the BiPAP and Ativan 1 mg IV has been given. Dr. Dorman and I did discuss the x -ray findings and at this point we will withhold pneumonia therapy as this does not look like pneumonia at this time. Patient does not have elevated white count and is not febrile and does not have cough and Dr. Dorman does not believe that this is pneumonia related. Dr. Dorman and hospitals will follow. Admit, inpatient status. (KAZ HORNER MD) Diagnostic Imaging Diagonstic Imaging: CT Plain Films/CT/US/NM/MRI: head [facility]. [place], [place] NAME: ANGIE ORDONEZ [facility] REC#: [id number] PT STATUS: REG ER : 1950 PHYSICIAN: KAZ HORNER MD ADMIT DATE: 10/16/17/ER Draft Date of Exam:10/16/17 CT HEAD WO PROCEDURE: CT head without contrast. TECHNIQUE: Multiple contiguous axial images were obtained through the brain without the use of intravenous contrast. INDICATION: Lethargy. Comparison is made with prior head CT from 09/30/2017. The study is compromised due to patient motion. 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 Ventricular size is normal. No sulcal effacement is seen. There is no midline shift or acute intracranial hemorrhage detected. Cisterns are patent. IMPRESSION: Limited by motion. There is a large area of encephalomalacia right middle cerebral artery territory. No acute intracranial process is detected. Dictated on workstation # [id number] Dict: 10/16/17920 Trans: 10/16/17 0934 DESTINY [id number] Interpreted by: KRISTINA RAMOS MD Electronically signed by: Diagonstic Imaging: Xray Plain Films/CT/US/NM/MRI: other Comments [facility]. [place], [place] NAME: ANGIE ORDONEZ [facility] REC#: [id number] PT STATUS: REG ER : 1950 PHYSICIAN: KAZ HORNER MD ADMIT DATE: 10/16/17/ER Draft Date of Exam:10/16/17 TIBIA/FIBULA, LEFT, 2 VIEWS INDICATION: Recent fall with bruising to left lower leg. Time of exam 9:41 AM Multiple views left tibia and fibula were obtained. Alignment at the knee and ankle is normal. The tibia and fibula are intact. No fractures are identified. Soft tissues are unremarkable. IMPRESSION: No acute bony abnormality is detected. Dictated on workstation # [id number] Dict: 10/16/1734 Trans: 10/16/1741 DESTINY [id number] Interpreted by: KRISTINA RAMOS MD Electronically signed by: Ki Imaging: Xray Plain Films/CT/US/NM/MRI: chest Comments [facility]. [place] NAME: ANGIE ORDONEZ [facility] REC#: [id number] PT STATUS: REG ER : 1950 PHYSICIAN: KAZ HORNER MD ADMIT DATE: 10/16/17/ER Draft Date of Exam:10/16/17 CHEST 1 VIEW, AP/PA ONLY INDICATION: Increasing shortness of breath. Time of exam 9:40 AM Comparison is made with prior study from 02/27/2017. The heart is enlarged but stable. There is central congestion. There is chronic elevation of the left hemidiaphragm. There may be some infiltrate/atelectasis at both lung bases, left greater with left hemidiaphragm is partially obscured. There is also some minimal patchy density in the right perihilar region. No pneumothorax is seen. IMPRESSION: Cardiomegaly and central congestion with patchy regions of infiltrate/atelectasis in both lungs. Dictated on workstation # [id number] Dict: 10/16/1732 Trans: 10/16/17 0939 DESTINY [id number] Interpreted by: KRISTINA RAMOS MD Electronically signed by: (KAZ HORNER MD) Departure Communication (Admissions) Time/Spoke to Admitting Phy: 10:37 Time/Spoke to Consulting Phy: 10:40 (AKZ HORNER MD) Impression Primary Impression: Acute respiratory failure with hypoxia and hypercarbia Additional Impression: COPD with acute exacerbation Disposition: 01 HOME, SELF-CARE Condition: Stable Admissions Decision to Admit Reason: Admit from ER (General) Decision to Admit/Date: October 16, 2017 Time/Decision to Admit Time: 10:37 (KAZ HORNER MD) Departure-Patient Inst. Referrals: MEDARDO SINGH MD (PCP/Family) Primary Care Physician ANT MORRIS STUDENT October 16, 2017 08:16 KAZ HORNER MD October 16, 2017 08:36
[2017-10-16 08:22] LABS: BASOPHILS % (AUTO) 0 % (0-10); EOSINOPHILS # (AUTO) 0.1 10^3/uL (0.0-0.3); EOSINOPHILS % (AUTO) 1 % (0-10); HEMATOCRIT 42 % (35-52); HEMOGLOBIN 11.4 G/DL (11.5-16.0); LYMPHOCYTES # (AUTO) 1.2 X 10^3 (1.0-4.0); LYMPHOCYTES % (AUTO) 14 % (12-44); MEAN CORPUSCULAR HEMOGLOBIN 29 PG (25-34); MEAN CORPUSCULAR HGB CONC 27 G/DL (32-36); MEAN CORPUSCULAR VOLUME 107 FL (80-99); MEAN PLATELET VOLUME 10.7 FL (7.4-10.4); MONOCYTES # (AUTO) 0.8 X 10^3 (0.0-1.0); MONOCYTES % (AUTO) 9 % (0-12); NEUTROPHILS # (AUTO) 6.7 X 10^3 (1.8-7.8); NEUTROPHILS % (AUTO) 76 % (42-75); PLATELET COUNT 216 10^3/uL (130-400); RED BLOOD COUNT 3.92 10^6/uL (4.35-5.85); RED CELL DISTRIBUTION WIDTH 14.6 % (10.0-14.5); WHITE BLOOD COUNT 8.9 10^3/uL (4.3-11.0)
[2017-10-16 08:43] LABS: ALANINE AMINOTRANSFERASE 18 U/L (0-55); ALBUMIN 3.8 GM/DL (3.2-4.5); ALKALINE PHOSPHATASE 70 U/L (40-136); BILIRUBIN,TOTAL 0.4 MG/DL (0.1-1.0); BUN/CREATININE RATIO 23; CALCIUM 10.2 MG/DL (8.5-10.1); CARBON DIOXIDE 39 MMOL/L (21-32); CHLORIDE 97 MMOL/L (98-107); CREATININE SERUM 0.87 MG/DL (0.60-1.30); GFR ESTIMATED > 60; GLUCOSE 140 MG/DL (70-105); MAGNESIUM 2.4 MG/DL (1.8-2.4); POTASSIUM 5.5 MMOL/L (3.6-5.0); SODIUM 143 MMOL/L (135-145)
[2017-10-16 08:43] LABS: ABG BASE EXCESS 15.9 MMOL/L (-2.5-2.5); ABG OXYGEN SATURATION 98 % (94-100); ABG PO2 95 MMHG (79-93)
[2017-10-16 08:46] LABS: ABG PH 7.24 (7.37-7.43)
[2017-10-16 08:47] LABS: ABG PCO2 105 MMHG (35-45); ALLENS TEST YES-POS
[2017-10-16 08:48] LABS: INSPIRED O2 3; PATIENT TEMP 98; VENTILATOR NO
--- NOTE | 2017-10-16 09:34 | Diagnostic Imaging Report ---
PROCEDURE: CT head without contrast. TECHNIQUE: Multiple contiguous axial images were obtained through the brain without the use of intravenous contrast. INDICATION: Lethargy. Comparison is made with prior head CT from 09/30/2017. The study is compromised due to patient motion. 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 Ventricular size is normal. No sulcal effacement is seen. There is no midline shift or acute intracranial hemorrhage detected. Cisterns are patent. IMPRESSION: Limited by motion. There is a large area of encephalomalacia right middle cerebral artery territory. No acute intracranial process is detected. Dictated by: Dictated on workstation # [id number]
--- NOTE | 2017-10-16 09:40 | Diagnostic Imaging Report ---
INDICATION: Increasing shortness of breath. Time of exam 9:40 AM Comparison is made with prior study from 02/27/2017. The heart is enlarged but stable. There is central congestion. There is chronic elevation of the left hemidiaphragm. There may be some infiltrate/atelectasis at both lung bases, left greater with left hemidiaphragm is partially obscured. There is also some minimal patchy density in the right perihilar region. No pneumothorax is seen. IMPRESSION: Cardiomegaly and central congestion with patchy regions of infiltrate/atelectasis in both lungs. Dictated by: Dictated on workstation # [id number]
--- NOTE | 2017-10-16 09:42 | Diagnostic Imaging Report ---
INDICATION: Recent fall with bruising to left lower leg. Time of exam 9:41 AM Multiple views left tibia and fibula were obtained. Alignment at the knee and ankle is normal. The tibia and fibula are intact. No fractures are identified. Soft tissues are unremarkable. IMPRESSION: No acute bony abnormality is detected. Dictated by: Dictated on workstation # [id number]
[2017-10-16] MEDS ORDERED: LORazepam INJ 2 MG/ML (ATIVAN) VIAL IVP ONE ×2 (09:45→11:00)
[2017-10-16 10:22] LABS: BILIRUBIN,URINE NEGATIVE (NEGATIVE); CLARITY,URINE CLEAR; COLOR,URINE YELLOW; GLUCOSE, URINE (UA) NEGATIVE (NEGATIVE); KETONES,URINE NEGATIVE (NEGATIVE); LEUKOCYTE ESTERASE ,URINE NEGATIVE (NEGATIVE); NITRITE,URINE NEGATIVE (NEGATIVE); PH,URINE 6 (5-9); PROTEIN,URINE 2+ (NEGATIVE); UROBILINOGEN,URINE 1 MG/DL (NORMAL)
[2017-10-16 10:30] LABS: BACTERIA,URINE TRACE /HPF; SQUAMOUS EPITHELIAL CELL,UR RARE /HPF
[2017-10-16] MEDS ORDERED: RT-ALBUTEROL/IPRATROPIUM 3 ML (DUONEB) VIAL ONE (10:40)
[2017-10-16] MEDS ORDERED: methylPREDNISolone 125 MG (Solu-MEDROL) VIAL IV STA (10:41)
[2017-10-16] MEDS ORDERED: RT-ALBUTEROL/IPRATROPIUM 3 ML (DUONEB) VIAL INH ONE (10:45)
--- OUTSIDE RECORDS SUMMARY | 2017-10-16 11:32 | XMS REPORT | Clinical Summary ---
Author Author [facility] Organization [facility] Address Unknown Phone Unavailable Care Team Providers Care Professional Model Name Role Phone Saroj Loza PA-C Unavailable Darryl Li MD Unavailable Chang Wilkerson MD PCP Source Comments Some departments are not documenting in the electronic medical record. If you do not see the information that you expected, contact Release of Information in the Health Information Management department at [phone] for further assistance in locating additional records.[facility] Allergies No Known Allergies Current Medications Prescription [...] Taken Blood Pressure 153/71 07/22/2010 3:20 AM [employer] INSTRU[employer] Pulse 61 07/22/2010 3:20 AM FINE [employer] IN[employer]CTOR Temperature 37.1 C (98.8 F) 07/21/2010 11:10 PM F[employer] IN[employer]CTOR Respiratory Rate - - Oxygen Saturation 95% 07/22/2010 3:20 AM FINE [employer]S INSTRUCTOR Inhaled Oxygen - - Concentration Weight 109.8 kg (242 lb 1.6 oz) 07/22/2010 3:20 AM FINE ARTS INSTRUCTOR Height 170.2 cm (5' 7.01") 07/17/2010 9:00 AM FINE ARTS INSTRUCTOR Body Mass Index 37.91 07/22/2010 3:20 AM FINE ARTS INSTRUCTOR Plan of Treatment Health Maintenance Due Date Last Done Comments HEPATITIS C SCREENING 1950 PHYSICAL (COMPREHENSIVE) 1957 EXAM PERTUSSIS VACCINE 1961 TETANUS VACCINE 1967 BREAST CANCER SCREENING 1990 COLORECTAL CANCER 2000 SCREENING SHINGLES VACCINE 2010 OSTEOPOROSIS SCREENING 2015 PREVNAR/PNEUMOVAX (#1) 2015 INFLUENZA VACCINE 02/23/2018 Results Not on filefrom Last 3 Months
--- OUTSIDE RECORDS SUMMARY | 2017-10-16 11:34 | XMS REPORT | Continuity of Care Document ---
Author Author [facility] Organization [facility] Address Unknown Phone Unavailable Allergies Active Description Code Type Severity Reaction Onset Reported/Identified Relationship to Patient Clinical Status Yes NO KNOWN DRUG ALLERGIES NO KNOWN DRUG ALLERG UNKNOWN Yes LORAZEPAM UNKNOWN OTHER Yes NO KNOWN DRUG ALLERGIES UNKNOWN NO KNOWN DRUG ALLERG Yes No Known Drug Allergies [id number] Drug Allergy Unknown N/A 02/08/2011 Medications Medication [...] NOS 02/13/2011 Ot 414.01 CORONARY ATHEROSCLEROSIS OF [place] CORON 02/13/2011 Ot 726.0 ADHESIVE CAPSULIT SHLDER 02/13/2011 Ot V12.59 HX- CIRCULATORY SYST DIS,NEC 02/13/2011 Ot V58.69 OTH MED,LT, CURRENT USE 05/06/2012 Ot 250.00 DIAB LUDIVINA WO COMPL, TYPE II OR UNSPEC TY 05/06/2012 Ot 272.4 HYPERLIPIDEMIA NEC/NOS 05/06/2012 Ot 414.01 CORONARY ATHEROSCLEROSIS OF [place] CORON 05/06/2012 Ot 458.9 HYPOTENSION NOS 05/06/2012 [...] 05/15/2016 Jeffery Feliz E87.2 ACIDOSIS 05/15/2016 Jeffery Feliz E87.5 HYPERKALEMIA 05/15/2016 Jeffery Feliz F32.9 MAJOR [...] OBSTRUCTIVE PULMONARY DISEASE, U 03/10/2017 CHRISSIE CROUCH STAFF [employer] Ot J96.20 ACUTE AND CHR RESP FAILURE, UNSP W HYPOX 03/12/2017 CHRISSIE CROUCH APRN Ot I51.7 CARDIOMEGALY 03/12/2017 CHRISSIE CROUCH [employer]FF [employer] Ot R91.8 OTHER NONSPECIFIC ABNORMAL FINDING OF REMI 03/14/2017 CHRISSIE CROUCH [employer]AFF [employer] Ot J44.9 CHRONIC OBSTRUCTIVE PULMONARY DISEASE, U 03/14/2017 CHRISSIE CROUCH [employer]AFF [employer] Ot J96.20 ACUTE AND CHR RESP FAILURE, [...] APRN Ot I51.7 CARDIOMEGALY 08/14/2017 CHRISSIE CROUCH STAFF [employer] Ot R91.8 OTHER NONSPECIFIC ABNORMAL FINDING OF REMI 08/14/2017 CHRISSIE CROUCH APRN Ot J44.9 CHRONIC OBSTRUCTIVE PULMONARY DISEASE, U 08/14/2017 CHRISSIE CROUCH [employer]AFF [employer] Ot J96.20 ACUTE AND CHR RESP FAILURE, [...] L Ot 786.2 COUGH 09/08/2017 CHRISSIE CROUCH STAFF [employer] Ot I51.7 CARDIOMEGALY 09/08/2017 CHRISSIE CROUCH STAFF [employer] Ot R91.8 OTHER NONSPECIFIC ABNORMAL FINDING OF REMI 09/08/2017 CHRISSIE CROUCH STAFF [employer] Ot J44.9 CHRONIC OBSTRUCTIVE PULMONARY DISEASE, U 09/08/2017 CHRISSIE CROUCH [employer]FF [employer] Ot J96.20 ACUTE AND CHR RESP FAILURE, UNSP W HYPOX 09/08/2017 CHRISSIE CROUCH STAFF [employer] Ot J18.1 LOBAR PNEUMONIA, UNSPECIFIED ORGANISM 09/08/2017 CHRISSIE CROUCH STAFF [employer] Ot J44.9 CHRONIC OBSTRUCTIVE PULMONARY DISEASE, U 09/16/2017 CHRISSIE CROUCH STAFF [employer] Ot J18.1 LOBAR PNEUMONIA, UNSPECIFIED ORGANISM 09/16/2017 CHRISSIE CROUCH STAFF [employer] Ot J44.9 CHRONIC OBSTRUCTIVE PULMONARY DISEASE, U 09/16/2017 CHRISSIE CROUCH STAFF [employer] Ot J44.9 CHRONIC OBSTRUCTIVE PULMONARY DISEASE, U 09/16/2017 CHRISSIE CROUCH STAFF [employer] Ot J96.20 ACUTE AND CHR RESP FAILURE, UNSP W HYPOX 09/16/2017 CHRISSIE CROUCH STAFF [employer] Ot R53.83 OTHER FATIGUE 09/29/2017 CHRISSIE CROUCH STAFF [employer] Ot J44.9 CHRONIC OBSTRUCTIVE PULMONARY DISEASE, U 09/29/2017 CHRISSIE CROUCH [employer]AFF [employer] Ot J96.20 ACUTE AND CHR RESP FAILURE, UNSP W HYPOX 09/29/2017 CHRISSIE CROUCH APRN Ot R53.83 OTHER FATIGUE 09/29/2017 CHRISSIE CROUCH APRN Ot J18.1 LOBAR PNEUMONIA, UNSPECIFIED ORGANISM 09/29/2017 CHRISSIE CROUCH APRN Ot J44.9 CHRONIC OBSTRUCTIVE PULMONARY DISEASE, U 09/30/2017 KAZ HORNER MD, Ot F32.9 MAJOR DEPRESSIVE DISORDER, SINGLE EPISOD 09/30/2017 KAZ HORNER MD, Ot F41.9 ANXIETY DISORDER, UNSPECIFIED 09/30/2017 KAZ HORNER MD, Ot G47.30 SLEEP APNEA, UNSPECIFIED 09/30/2017 KAZ HORNER MD, Ot I10 ESSENTIAL (PRIMARY) HYPERTENSION 09/30/2017 KAZ HORNER MD, Ot J44.9 CHRONIC OBSTRUCTIVE PULMONARY DISEASE, U 09/30/2017 KAZ HORNER MD, Ot K21.9 GASTRO-ESOPHAGEAL REFLUX DISEASE WITHOUT 09/30/2017 KAZ HORNER MD Ot M79.662 PAIN IN LEFT LOWER LEG 09/30/2017 KAZ HORNER MD, Ot S42.295A OTH NONDISP FX OF UPPER END OF LEFT DAVONTE 09/30/2017 KAZ HORNER MD Ot W19.XXXA UNSPECIFIED FALL, INITIAL ENCOUNTER 09/30/2017 KAZ HORNER MD Ot Z79.52 CARE HOME (CURRENT) USE OF SYSTEMIC STER 09/30/2017 KAZ HORNER MD Ot Z79.82 STAVE AND BOLT EQUALIZER (CURRENT) USE OF ASPIRIN 09/30/2017 KAZ HORNER MD Ot Z87.442 PERSONAL HISTORY OF URINARY CALCULI 09/30/2017 KAZ HORNER MD, Ot Z87.891 PERSONAL HISTORY OF NICOTINE DEPENDENCE 10/02/2017 KAZ HORNER MD, Ot F32.9 MAJOR DEPRESSIVE DISORDER, SINGLE EPISOD 10/02/2017 KAZ HORNER MD, Ot F41.9 ANXIETY DISORDER, UNSPECIFIED 10/02/2017 KAZ HORNER MD Ot G47.30 SLEEP APNEA, UNSPECIFIED 10/02/2017 KAZ HORNER MD Ot I10 ESSENTIAL (PRIMARY) HYPERTENSION 10/02/2017 KAZ HORNER MD, Ot J44.9 CHRONIC OBSTRUCTIVE PULMONARY DISEASE, U 10/02/2017 KAZ HORNER MD, Ot K21.9 GASTRO-ESOPHAGEAL REFLUX DISEASE WITHOUT 10/02/2017 KAZ HORNER MD, Ot M79.662 PAIN IN LEFT LOWER LEG 10/02/2017 KAZ HORNER MD, Ot S42.295A OTH NONDISP FX OF UPPER END OF LEFT DAVONTE 10/02/2017 KAZ HORNER MD, Ot W19.XXXA UNSPECIFIED FALL, INITIAL ENCOUNTER 10/02/2017 KAZ HORNER MD, Ot Z79.52 CARE HOME (CURRENT) USE OF SYSTEMIC STER 10/02/2017 KAZ HORNER MD, Ot Z79.82 STAVE AND BOLT EQUALIZER (CURRENT) USE OF ASPIRIN 10/02/2017 KAZ HORNER MD, Ot Z87.442 PERSONAL HISTORY OF URINARY CALCULI 10/02/2017 KAZ HORNER MD, Ot Z87.891 PERSONAL HISTORY OF NICOTINE DEPENDENCE Procedures There is no data. Results Test [...] Complete urinalysis with reflex to culture YES NRG Bacterial urine culture - 06/01/16 10:25 Bacterial urine culture [id number] NRG COLONY COUNT >100,000/ML NRG FTX;REPORTABLE SENSITIVITY REPORTED AT 1750, 1--17 NR Bacterial susceptibility panel - 06/01/16 10:25 Gentamicin susceptibility test by minimum inhibitory concentration < = NRG Trimethoprim/sulfamethoxazole susceptibility test by minimum inhibitoryconcentration >= NRG Ampicillin susceptibility test by minimum inhibitory concentration > = NRG Tobramycin susceptibility test by minimum inhibitory concentration < = NRG Cefazolin susceptibility test by minimum inhibitory concentration < = NRG Ceftriaxone susceptibility test by minimum inhibitory concentration <= NRG Ampicillin/sulbactam susceptibility test by minimum inhibitory concentration <= NRG Piperacillin/tazobactam susceptibility test by minimum inhibitory concentration <= NRG Ciprofloxacin susceptibility test by minimum inhibitory concentration >= NRG Meropenem susceptibility test by minimum inhibitory concentration < = NRG Nitrofurantoin susceptibility test by minimum inhibitory concentration <= NRG Aztreonam susceptibility test by minimum inhibitory concentration < = NRG Extended spectrum beta lactamase (ESBL) producing bacteria susceptibility test by minimum inhibitory concentration - [facility] Comprehensive Metabolic Panel - 10/13/16 16:31 Albumin [...] 5-8.5 Urine-Protein Negative Negative Urine-RBC 0-2/HPF Urine-Specific [place] 1.010 1.000-1.030 Urine-WBC Negative Urobilinogen 0.2 E.U./dL [...] 5-8.5 Urine-Protein Negative Negative Urine-RBC Negative Urine-Specific [place] 1.020 1.000-1.030 Urine-WBC Negative Urobilinogen 0.2 E.U./dL [...] (PTH) measurement with calcium 10.4 % 8.5-10.5 BMP - 05/27/17 14:55 Anion Gap 10 6-14 [...] 5-8.5 Urine-Protein Negative Negative Urine-RBC Rare/HPF Urine-Specific [place] 1.020 1.000-1.030 Urine-WBC Nothing Seen on Microscopic Urobilinogen 0.2 E.U./dL 0.2-1.0 CBC with Auto Diff - 07/02/17 10:20 Baso% 0.10 % 0.00-2.50 Eos 0.1 K/uL 0.0-0.7 Eos% 1.3 % 0.0-7.0 Hct 39.0 % 36.0-46.0 Hgb 11.4 g/dL 13.0-15.0 Lym 1.02 K/uL 0.60-3.40 Lym% 13.3 % 10.0-50.0 MCH 31.4 pg 27.0-31.0 MCHC 29.2 g/dL 32.0-36.0 MCV 107.4 fL 80.0-97.0 Ware% 10.1 % 0.0-12.0 MPV 11.2 fL 7.4-10.0 Anny% 75.2 % 37.0-80.0 Plt 217 K/uL 150-400 RBC 3.63 M/uL 3.60-5.00 RDW 14.5 % 11.6-14.8 WBC 7.69 K/uL 5.00-10.00 Anny 5.78 K/uL 2.00-6.90 Ware 0.8 K/uL 0.0-0.9 Baso 0.0 K/uL 0.0-0.2 BMP - 07/03/17 07:00 Anion Gap 10 6-14 BUN 18 mg/dL 5-25 Calcium 10.1 mg/dL 8.3-10.4 Chloride 93 mmol/L 95-114 CO2 43 mEq/L 22-33 Creat 0.89 mg/dL 0.50-1.50 eGFR 63 mL/min/1.73m2 >59 Glucose 117 mg/dL 70-110 Osmo 296 280-295 Potassium 4.4 mmol/L 3.5-5.3 Sodium 142 mmol/L 134-148 Complete blood count (CBC) with automated white blood cell (WBC) differential - 09/30/17 10:55 Blood leukocytes automated count (number/volume) 6.9 10*3/uL 4.3-11.0 Blood erythrocytes automated count (number/volume) 4.02 10*6/uL 4.35-5.85 Venous blood hemoglobin measurement (mass/volume) 11.8 g/dL 11.5-16.0 Blood hematocrit (volume fraction) 42 % 35-52 Automated erythrocyte mean corpuscular volume 104 [foz_us] 80-99 Automated erythrocyte mean corpuscular hemoglobin (mass per erythrocyte) 29 pg 25-34 Automated erythrocyte mean corpuscular hemoglobin concentration measurement ( mass/volume) 28 g/dL 32-36 Automated erythrocyte distribution width ratio 14.6 % 10.0-14.5 Automated blood platelet count (count/volume) 201 10*3/uL 130-400 Automated blood platelet mean volume measurement 12.1 [foz_us] 7.4-10.4 Automated blood neutrophils/100 leukocytes 73 % 42-75 Automated blood lymphocytes/100 leukocytes 16 % 12-44 Blood monocytes/100 leukocytes 10 % 0-12 Automated blood eosinophils/100 leukocytes 2 % 0-10 Automated blood basophils/100 leukocytes 0 % 0-10 Blood neutrophils automated count (number/volume) 5.0 10*3 1.8-7.8 Blood lymphocytes automated count (number/volume) 1.1 10*3 1.0-4.0 Blood monocytes automated count (number/volume) 0.7 10*3 0.0-1.0 Automated eosinophil count 0.1 10*3/uL 0.0-0.3 Automated blood basophil count (count/volume) 0.0 10*3/uL 0.0-0.1 Comprehensive metabolic panel - 09/30/17 10:55 Serum or plasma sodium measurement (moles/volume) 141 mmol/L 135-145 Serum or plasma potassium measurement (moles/volume) 4.8 mmol/L 3.6-5.0 Serum or plasma chloride measurement (moles/volume) 94 mmol/L 98-107 Carbon dioxide 39 mmol/L 21-32 Serum or plasma anion gap determination (moles/volume) 8 mmol/L 5-14 Serum or plasma urea nitrogen measurement (mass/volume) 25 mg/dL 7-18 Serum or plasma creatinine measurement (mass/volume) 0.93 mg/dL 0.60-1.30 Serum or plasma urea nitrogen/creatinine mass ratio 27 NRG Serum or plasma creatinine measurement with calculation of estimated glomerular filtration rate 60 NRG Serum or plasma glucose measurement (mass/volume) 162 mg/dL 70-105 Serum or plasma calcium measurement (mass/volume) 10.2 mg/dL 8.5-10.1 Serum or plasma total bilirubin measurement (mass/volume) 0.4 mg/dL 0.1-1.0 Serum or plasma alkaline phosphatase measurement (enzymatic activity/volume) 58 U/L 40-136 Serum or plasma aspartate aminotransferase measurement (enzymatic activity/ volume) 12 U/L 5-34 Serum or plasma alanine aminotransferase measurement (enzymatic activity/volume ) 10 U/L 0-55 Serum or plasma protein measurement (mass/volume) 6.9 g/dL 6.4-8.2 Serum or plasma albumin measurement (mass/volume) 3.8 g/dL 3.2-4.5 Complete urinalysis with reflex to culture - 09/30/17 12:30 Urine color determination YELLOW NRG Urine clarity determination CLEAR NRG Urine pH measurement by test strip 5 5-9 Specific gravity of urine by test strip 1.015 1.016- 1.022 Urine protein assay by test strip, semi-quantitative NEGATIVE NEGATIVE Urine glucose detection by automated test strip NEGATIVE NEGATIVE Erythrocytes detection in urine sediment by light microscopy NEGATIVE NEGATIVE Urine ketones detection by automated test strip NEGATIVE NEGATIVE Urine nitrite detection by test strip NEGATIVE NEGATIVE Urine total bilirubin detection by test strip NEGATIVE NEGATIVE Urine urobilinogen measurement by automated test strip (mass/volume) NORMAL NORMAL Urine leukocyte esterase detection by dipstick NEGATIVE NEGATIVE Automated urine sediment erythrocyte count by microscopy (number/high power field) NONE NRG Automated urine sediment leukocyte count by microscopy (number/high power field ) NONE NRG Bacteria detection in urine sediment by light microscopy NEGATIVE NRG Squamous epithelial cells detection in urine sediment by light microscopy 2-5 NRG Crystals detection in urine sediment by light microscopy NONE NRG Casts detection in urine sediment by light microscopy NONE NRG Mucus detection in urine sediment by light microscopy NEGATIVE NRG Complete urinalysis with reflex to culture NO NRG Encounters ACCT No. Visit Date/Time Discharge Status Pt. Type Provider Facility Loc./Unit Complaint [id number] 09/30/2017 10:31:00 09/30/2017 13:43:00 DIS Emergency KAZ HORNER MD [facility] ER FELL FRIDAY, BLEEDING IN HER EAR [id number] 09/15/2017 10:49:00 09/15/2017 23:59:59 CLS Outpatient CHRISSIE CROUCH APRN [facility] RT COPD [id number] 09/15/2017 10:48:00 09/15/2017 23:59:59 CLS Outpatient CHRISSIE CROUCH APRN [facility] RAD J18.9 PNEUMONIA [id number] 09/08/2017 09:15:00 09/08/2017 23:59:59 CLS Outpatient CHRISSIE CROUCH APRN [facility] PULM COPD [id number] 07/31/2017 11:55:00 07/31/2017 23:59:59 CLS Outpatient CHRISSIE CROUCH [employer]FF [employer] [facility] RAD COPD,HYPOXEMIA REQUIRING SUPPLEMENTAL OXYGEN [id number] 03/04/2017 14:58:00 03/06/2017 14:56:00 DIS Inpatient KALEIGH HUGO MD [facility] 4TH COPD EXACERBATION R/O PNEUMONIA [id number] 03/04/2017 10:51:00 03/04/2017 23:59:59 CLS Outpatient CHRISSIE CROUCH STAFF [employer] [facility] LAB J96.20,J44.9,R06.00 ,R09.02 [id number] 02/27/2017 15:30:00 02/27/2017 23:59:59 CLS Preadmit CHRISSIE CROUCH STAFF [employer] [facility] RT COPD [id number] 02/27/2017 15:28:00 02/27/2017 23:59:59 CLS Outpatient CHRISSIE CROUCH STAFF [employer] [facility] RAD R09.02 J44.9 J96.20 [id number] 05/31/2016 13:57:00 06/02/2016 13:15:00 DIS Inpatient LUIS HERNÁNDEZ MD [facility] 4TH HYPERCARBIC RESPIRATORY FAILURE [id number] 10/25/2014 12:22:00 10/25/2014 23:59:59 CLS Outpatient MEDARDO SINGH MD [facility] RAD CHRONIC COUGH, COPD [id number] 12/28/2013 14:07:00 12/28/2013 23:59:59 CLS Outpatient MEDARDO SINGH MD [facility] RAD PAIN/RANDA KNEES [id number] 06/18/2013 13:42:00 06/18/2013 23:59:59 CLS Outpatient MEDARDO SINGH MD [facility] LAB HTN [id number] 06/15/2013 13:21:00 06/15/2013 23:59:59 CLS Outpatient MEDARDO ISNGH MD [facility] RAD R SHOULDER PAIN [id number] 02/11/2013 13:00:00 04/14/2013 00:01:00 DIS Outpatient MEDARDO SINGH MD [facility] PULM COPD [id number] 11/10/2012 10:00:00 01/13/2013 00:01:00 DIS Outpatient MEDARDO SINGH MD [facility] PULM COPD [id number] 12/22/2012 10:33:00 12/22/2012 23:59:59 CLS Outpatient MEDARDO SINGH MD [facility] LAB DECREASED KIDNEY FUNCTION [id number] 11/24/2012 09:51:00 11/24/2012 23:59:59 CLS Outpatient NATHAN VALDERRAMA [facility] RAD RICO [id number] 05/31/2016 10:09:00 Document Registration [id number] 05/31/2016 10:09:00 Document Registration [id number] 04/15/2013 15:00:00 Document Registration [id number] 06/23/2012 08:19:00 Document Registration [id number] 05/13/2012 08:54:00 Document Registration [id number] 05/06/2012 07:29:00 Document Registration [id number] 04/27/2012 07:12:00 Document Registration [id number] 04/09/2012 09:46:00 Document Registration [id number] 03/16/2012 12:59:00 Document Registration [id number] 03/09/2012 10:20:00 Document Registration [id number] 03/04/2012 13:38:00 Document Registration [id number] 01/15/2012 07:48:00 Document Registration [id number] 02/13/2011 05:34:00 Document Registration [id number] 02/08/2011 08:09:00 Document Registration [id number] 07/02/2017 12:08:00 07/03/2017 16:05:00 DIS Inpatient MEDARDO SINGH [facility] MED-SURG [id number] 05/27/2017 14:55:00 05/27/2017 23:59:00 DIS Outpatient MEDARDO SINGH [id number] 02/13/2017 13:39:00 02/14/2017 13:15:00 DIS Outpatient SINGH [facility] MED-SURG [id number] 11/05/2016 10:39:00 11/05/2016 23:59:00 DIS Outpatient MEDARDO SINGH [id number] 10/14/2016 14:05:00 10/14/2016 23:59:00 DIS Outpatient MEDARDO SINGH [id number] 10/13/2016 15:58:00 10/13/2016 18:00:00 DIS Outpatient CRUZ SANTOS [id number] 05/15/2016 13:06:00 05/15/2016 16:35:00 [id number] 05/12/2016 18:42:00 05/12/2016 21:30:00 [id number] 05/07/2016 10:41:00 05/07/2016 23:59:00 DIS Outpatient MEDARDO SINGH [id number] 01/22/2017 10:17:22 Document Registration [id number] 05/12/2016 19:55:58 Document Registration [id number] 07/02/2017 12:08:00 Document Registration
--- NOTE | 2017-10-16 11:48 | History & Physical-Hospitalist ---
History of Present Illness HPI/Chief Complaint CC: Confusion due to CO2 narcosis HPI: This is a 67-year-old white female who resides at [facility] living with a past medical history of acute on chronic respiratory failure with obesity hypoventilation syndrome with severe obstructive sleep apnea who presented to the ER with confusion found to have a CO2 of 105 above her baseline of usual 70. Apparently her sister and children try to keep her mask on her face but she is not very compliant with that and she takes it off quickly afterwards placed. Overall prognosis is extremely poor given the fact of chronic respiratory failure and unable to be compliant with her CPAP/BiPAP machine so I did speak to Dr. Dorman regarding possibly placement of a trach because of the severity of her neck circumference and obstruction. She is wheezing has been placed on Solu-Medrol and will follow-up on coverage for pneumonia. Patient is still confused so I'm unable to obtain many details from her but her sister does report a cough but no fever. She denies any significant pain and she is able to become more alert than when she was originally admitted through the ER. Source: patient Exam Limitations: no limitations Date Seen 10/16/17 Time Seen by Provider: 11:30 Attending Physician Pilar Sunshine DO PCP Deloris Spencer MD Referring Physician Date of Admission October 16, 2017 at 10:50 Home Medications & Allergies Home Medications Reviewed patient Home Medication Reconciliation performed by pharmacy medication reconciliations remote sensing technician and/or nursing. Patients Allergies have been reviewed. Allergies Allergies Coded Allergies No Known Drug Allergies (Unverified02/08/11) Past Uqrawxp-Jtdayb-Rbruue Hx Past Med/Social Hx: Reviewed Nursing Past Med/Soc Hx, Reviewed and Corrections made Patient Social History Marrital Status: single Employed/Student: retired Smoking Status: Unknown if Ever Smoked Former Smoker, Quit: Sep 09, 2011 Recent Foreign Travel: No Contact w/other who traveled: No Recent Hopitalizations: Yes Recent Infectious Disease Expo: No Immunizations Up To Date Date of Pneumonia Vaccine: Mar 06, 2012 Date of Influenza Vaccine: Feb 27, 2017 Seasonal Allergies Seasonal Allergies: No Past Medical History Respiratory: COPD, Sleep Apnea Currently Using CPAP: Yes Currently Using BIPAP: No Cardiac: Hypertension Reproductive: No Sexually Transmitted Disease: No HIV/AIDS: No Genitourinary: Kidney Stones Gastrointestinal: Gastroesophageal Reflux Musculoskeletal: Arthritis Psychosocial: Sleep Difficulties, Anxiety, Depression Skin/Integumentary: Psoriasis History of Blood Disorders: No Family History Reviewed Nursing Family Hx Alcoholism Cardiovascular disease Colon cancer Hypertension Heart Disease Review of Systems Constitutional: see HPI, dizziness, weakness EENTM: no symptoms reported Respiratory: cough, short of breath, wheezing Cardiovascular: no symptoms reported Gastrointestinal: no symptoms reported Genitourinary: no symptoms reported Musculoskeletal: no symptoms reported Skin: no symptoms reported Psychiatric/Neurological: No Symptoms Reported All Other Systems Reviewed Negative Unless Noted: Yes Physical Exam Physical Exam Vital Signs Vital Signs - First Documented 10/16/17 08:01 Temp 98.0 Pulse 90 Resp 24 B/P (MAP) 142/75 (97) Pulse Ox 96 O2 Delivery Nasal Cannula O2 Flow Rate 3.00 Capillary Refill : Less Than 3 Seconds General Appearance: WD/WN, Chronically ill, Mild Distress, Obese, Other ( confused) Eyes: Bilateral Eye Normal Inspection, Bilateral Eye PERRL HEENT: PERRL/EOMI, Normal ENT Inspection, Pharynx Normal Neck: Full Range of Motion, Normal Inspection, Non Tender, Supple, Carotid Bruit Respiratory: Chest Non Tender, Crackles, Decreased Breath Sounds, Wheezing, Other (on biPAP) Cardiovascular: Regular Rate, Rhythm, No Edema, No Gallop, No JVD, No Murmur, Normal Peripheral Pulses Gastrointestinal: Normal Bowel Sounds, No Organomegaly, No Pulsatile Mass, Non Tender, Soft Back: Normal Inspection, No CVA Tenderness, No Vertebral Tenderness Extremity: Normal Capillary Refill, Normal Inspection, Normal Range of Motion, Non Tender, No Calf Tenderness, No Pedal Edema Neurologic/Psychiatric: Disoriented Skin: Normal Color, Warm/Dry Lymphatic: No Adenopathy Results Results/Procedures Labs Laboratory Tests 10/16/17 08:10 Patient resulted labs reviewed. Assessment/Plan Admission Diagnosis CO2 narcosis Admission Status: Inpatient Order (span 2 midnights) Reason for Inpatient Admission: Severe CO2 nacrosis will require IV steroids and pulmonology evaluation along with Nebs and biPAP Assessment and Plan IV steroids Abx Nebs O2 Diagnosis/Problems Diagnosis/Problems (1) Obesity hypoventilation syndrome Status: Acute (2) Obesity (BMI 30-39.9) Status: Chronic (3) Pneumonia Status: Acute Qualifiers: Pneumonia type: due to unspecified organism Laterality: unspecified laterality Lung location: unspecified part of lung Qualified Codes: J18.9 - Pneumonia, unspecified organism (4) Acute respiratory failure with hypoxia and hypercarbia Status: Acute (5) COPD with acute exacerbation Status: Acute (6) Essential (primary) hypertension Status: Chronic (7) Restless leg syndrome Status: Chronic (8) Hypercarbia Status: Acute (9) Poor prognosis Status: Chronic PILAR SUNSHINE DO October 16, 2017 11:48
[2017-10-16] MEDS ORDERED: CATHETER FLUSH 10 ML SYR IV PRN (12:00)
[2017-10-16] MEDS ORDERED: LORazepam INJ 2 MG/ML (ATIVAN) VIAL IV PRN (12:00)
[2017-10-16] MEDS ORDERED: L.AC1CAP6 PO (12:12)
[2017-10-16] MEDS ORDERED: POTA10TA10 PO (12:12)
[2017-10-16] MEDS ORDERED: ALBU2.5V4 NEB (12:12)
[2017-10-16] MEDS ORDERED: OMEP40CA36 PO (12:12)
[2017-10-16] MEDS ORDERED: ENAL5TAB PO (12:12)
[2017-10-16] MEDS ORDERED: FURO20TA4 PO (12:12)
[2017-10-16] MEDS ORDERED: ROPI1TAB2 PO (12:12)
[2017-10-16] MEDS: NS IV 1000 ML 1,000 ML IV SCH (12:18)
[2017-10-16] MEDS ORDERED: BUSP15TA60 PO (12:20)
[2017-10-16] MEDS ORDERED: LISI-556 PO (12:20)
[2017-10-16] MEDS ORDERED: RT-ALBUTEROL SULF 2.5 MG/3 ML PRE-MIX VIAL ONE (13:50)
[2017-10-16] MEDS: RT-ALBUTEROL SULF 2.5 MG/3 ML PRE-MIX VIAL INH SCH ×3 (13:56→21:09)
--- NOTE | 2017-10-16 15:14 | Pulmonary Consultation ---
History of Present Illness History of Present Illness Date of Consultation 10/16/17 15:09 Time Seen by Provider: 15:09 Date of Admission History of Present Illness 67yo from F with hx of chronic respiratory failure and morbid obesity, OHS, presented to ED secondary to worsening confusion and c02 of 105. She does have a PAP machine at home however she will not leave it on at night despite family encouraging her too. Unable to obtain ROS secondary to MS. Pt was admitted to 4th floor and placed on SoluMedrol and SVN treatements. I am consulted for pulmonary management. Allergies and Home Medications Allergies Coded Allergies: No Known Drug Allergies (Unverified , 02/08/11) Home Medications Albuterol Sulfate 2.5 Mg/3 Ml Vial.neb, 2.5 MG NEB Q4H PRN for SHORTNESS OF BREATH, (Reported) Aspirin 325 Mg Tablet.dr, 325 MG PO DAILY, (Reported) Budesonide/Formoterol Fumarate 10.2 Gm Hfa.aer.ad, 2 PUFF IH BID, (Reported) Buspirone HCl 15 Mg Tablet, 15 MG PO HS, (Reported) Docusate Sodium 100 Mg Capsule, 100 MG PO DAILY, (Reported) Escitalopram Oxalate 10 Mg Tablet, 10 MG PO DAILY, (Reported) Fluticasone Propionate 9.9 Ml [place].susp, 2 SPRAYS NS DAILY PRN for CONGESTION, (Reported) Furosemide 20 Mg Tablet, 20 MG PO DAILY, (Reported) L.acidoph & Paracasei,B.lactis 1 Each Capsule, 1 CAP PO DAILY, (Reported) Lisinopril 5 Mg Tablet, 5 MG PO DAILY, (Reported) Meloxicam 15 Mg Tablet, 15 MG PO DAILY, (Reported) Omeprazole 40 Mg Capsule.dr, 40 MG PO DAILY, (Reported) Polyethylene Glycol 3350 17 Gm Powd.pack, 17 GM PO DAILY PRN for CONSTIPATION- 2ND LINE, (Reported) Potassium Chloride 10 Meq Tablet.er, 10 MEQ PO DAILY, (Reported) Pravastatin Sodium 40 Mg Tablet, 40 MG PO HS, (Reported) Ropinirole HCl 1 Mg Tablet, 1 MG PO HS, (Reported) Past Bnevops-Zltoad-Qgdxxp Hx Past Med/Social Hx: Reviewed Nursing Past Med/Soc Hx, Reviewed and Corrections made Patient Social History Alcohol Use: Denies Use Recreational Drug Use: No Smoking Status: Former Smoker Former Smoker, Quit: Sep 09, 2011 Recent Foreign Travel: No Contact w/Someone Who Travel: No Recent Infectious Disease Expo: No Recent Hopitalizations: Yes Immunizations Up To Date Date of Pneumonia Vaccine: Mar 06, 2012 Date of Influenza Vaccine: Feb 27, 2017 Seasonal Allergies Seasonal Allergies: No Past Medical History Surgeries: Yes Respiratory: Yes Sleep Apnea, COPD Currently Using CPAP: Yes (non-compliant) Currently Using BIPAP: No Cardiac: Yes Hypertension Neurological: No Reproductive Disorders: No Sexually Transmitted Disease: No HIV/AIDS: No Genitourinary: Yes Kidney Stones Gastrointestinal: Yes Gastroesophageal Reflux Musculoskeletal: Yes Arthritis Endocrine: No HEENT: No Cancer: No Psychosocial: Yes Sleep Difficulties, Anxiety, Depression Integumentary: Yes Psoriasis Blood Disorders: No Family Medical History Reviewed Nursing Family Hx Alcoholism Cardiovascular disease Colon cancer Hypertension Heart Disease Review of Systems Time Seen by Provider: 08:58 Exam Exam Vital Signs Date Time Temp Pulse Resp B/P (MAP) Pulse Ox O2 Delivery O2 Flow Rate FiO2 10/16/17 14:11 NIV Bilevel 40.00 10/16/17 13:56 75 18 86 32.00 10/16/17 12:38 99 36 10/16/17 11:55 NIV Bilevel 32.00 10/16/17 11:45 97.8 82 19 113/59 (77) 99 NIV Bilevel 35.00 10/16/17 11:45 NIV Bilevel 35.00 10/16/17 11:43 75 20 99 36.00 10/16/17 11:33 95 18 110/67 95 NIV Bilevel 10/16/17 10:54 80 20 95 10/16/17 08:50 82 21 95 10/16/17 08:01 98.0 90 24 142/75 (97) 96 Nasal Cannula 3.00 10/16/17 08:01 Nasal Cannula 3.00 General Appearance: WD/WN, Chronically ill, Mild Distress, Obese, Other ( confused) HEENT: PERRL/EOMI, Normal ENT Inspection, Pharynx Normal Neck: Full Range of Motion, Normal Inspection, Non Tender, Supple, Carotid Bruit Respiratory: Chest Non Tender, Crackles, Decreased Breath Sounds, Wheezing, Other (on biPAP) Cardiovascular: Regular Rate, Rhythm, No Edema, No Gallop, No JVD, No Murmur, Normal Peripheral Pulses Capillary Refill: Less Than 3 Seconds Gastrointestinal: normal bowel sounds, non tender, soft, no organomegaly, no pulsatile mass Extremity: Normal Capillary Refill, Normal Inspection, Normal Range of Motion, Non Tender, No Calf Tenderness, No Pedal Edema Neurologic/Psychiatric: Disoriented Skin: Normal Color, Warm/Dry Lymphatic: No Adenopathy Results Lab Laboratory Tests 10/16/17 08:10 Assessment/Plan Assessment/Plan Acute on chronic respiratory failure -BIPAP PRN and QHS COPDAE r/o PNA -No productive cough leukocytosis or fever currently -jensen culture Hypoxia Morbid obesity with OHS -PT is noncompliant with PAP therapy 255 CHRISTEL CARUSO DO October 16, 2017 15:14
[2017-10-16 15:58] LABS: ABG BASE EXCESS 16.1 MMOL/L (-2.5-2.5); ABG OXYGEN SATURATION 98 % (94-100); ABG PH 7.31 (7.37-7.43); ABG PO2 96 MMHG (79-93); ABG TCO2 45.9 MMOL/L (21.0-31.0)
[2017-10-16 15:59] LABS: ABG PCO2 88 MMHG (35-45)
[2017-10-16 16:00] LABS: ALLENS TEST YES-POS; INSPIRED O2 35%; VENTILATOR NO
[2017-10-16 16:01] LABS: PATIENT TEMP 97.7
[2017-10-16] MEDS: methylPREDNISolone 40 MG/ML (Solu-MEDROL) VIAL IV SCH (17:46)
[2017-10-16 20:58] LABS: ABG BASE EXCESS 15.6 MMOL/L (-2.5-2.5); ABG OXYGEN SATURATION 99 % (94-100); ABG PO2 112 MMHG (79-93); ABG TCO2 45.4 MMOL/L (21.0-31.0)
[2017-10-16 20:59] LABS: ABG PCO2 90 MMHG (35-45)
[2017-10-16 21:00] LABS: INSPIRED O2 60%; PATIENT TEMP 98.1; VENTILATOR NO
[2017-10-16] MEDS ORDERED: HALOPERIDOL 5 MG/ML (HALDOL) AMP IV PRN (21:15)
[2017-10-16] MEDS ORDERED: morphine INJ 4 MG/ML 1 ML (VIAL/SYRINGE) IVP PRN (21:15)
[2017-10-17] VITALS (30 sets, daily range): BP systolic 85–149; BP diastolic 47–94
[2017-10-17] MEDS: RT-ALBUTEROL SULF 2.5 MG/3 ML PRE-MIX VIAL INH SCH ×5 (01:00→20:39)
[2017-10-17] MEDS: methylPREDNISolone 40 MG/ML (Solu-MEDROL) VIAL IV SCH ×5 (01:37→23:32)
[2017-10-17 04:16] LABS: BASOPHILS % (AUTO) 0 % (0-10); EOSINOPHILS % (AUTO) 0 % (0-10); HEMATOCRIT 39 % (35-52); HEMOGLOBIN 10.7 G/DL (11.5-16.0); LYMPHOCYTES # (AUTO) 0.6 X 10^3 (1.0-4.0); LYMPHOCYTES % (AUTO) 9 % (12-44); MEAN CORPUSCULAR HEMOGLOBIN 29 PG (25-34); MEAN CORPUSCULAR HGB CONC 28 G/DL (32-36); MEAN CORPUSCULAR VOLUME 104 FL (80-99); MEAN PLATELET VOLUME 11.1 FL (7.4-10.4); MONOCYTES # (AUTO) 0.2 X 10^3 (0.0-1.0); MONOCYTES % (AUTO) 4 % (0-12); NEUTROPHILS # (AUTO) 5.7 X 10^3 (1.8-7.8); NEUTROPHILS % (AUTO) 87 % (42-75); PLATELET COUNT 222 10^3/uL (130-400); RED BLOOD COUNT 3.74 10^6/uL (4.35-5.85); RED CELL DISTRIBUTION WIDTH 14.5 % (10.0-14.5); WHITE BLOOD COUNT 6.6 10^3/uL (4.3-11.0)
[2017-10-17 04:30] LABS: BAND NEUTROPHILS 2 %; BASOPHILS % (MANUAL) 0 %; EOSINOPHILS % (MANUAL) 0 %; LYMPHOCYTES % (MANUAL) 5 %; MONOCYTES % (MANUAL) 6 %; NEUTROPHILS % (MANUAL) 87 %
[2017-10-17 04:31] LABS: ANISOCYTOSIS SLIGHT
[2017-10-17 04:38] LABS: ALANINE AMINOTRANSFERASE 14 U/L (0-55); ALBUMIN 3.5 GM/DL (3.2-4.5); ALKALINE PHOSPHATASE 65 U/L (40-136); BILIRUBIN,TOTAL 0.4 MG/DL (0.1-1.0); BUN/CREATININE RATIO 27; CARBON DIOXIDE 34 MMOL/L (21-32); CHLORIDE 96 MMOL/L (98-107); CREATININE SERUM 0.88 MG/DL (0.60-1.30); GFR ESTIMATED > 60; GLUCOSE 178 MG/DL (70-105); MAGNESIUM 2.2 MG/DL (1.8-2.4); POTASSIUM 5.2 MMOL/L (3.6-5.0); SODIUM 140 MMOL/L (135-145); TOTAL PROTEIN 6.3 GM/DL (6.4-8.2)
[2017-10-17 05:27] LABS: ABG BASE EXCESS 12.7 MMOL/L (-2.5-2.5); ABG OXYGEN SATURATION 98 % (94-100); ABG PCO2 62 MMHG (35-45); ABG PO2 93 MMHG (79-93); ABG TCO2 40.2 MMOL/L (21.0-31.0); ALLENS TEST YES-POS; INSPIRED O2 50% BIPAP; PATIENT TEMP 96.8; VENTILATOR NO
--- NOTE | 2017-10-17 06:02 | Pulmonary Progress Note ---
Subjective Time Seen by Provider: 06:02 Subjective/Events-last exam Pt is more awake and answering questions. She wants to go home. She wants more info on hospice. Exam Exam Vital Signs Date Time Temp Pulse Resp B/P (MAP) Pulse Ox O2 Delivery O2 Flow Rate FiO2 10/17/17 05:30 77 28 105/83 (90) 96 NIV Bilevel 50.00 10/17/17 05:15 64 16 106/60 (75) 100 NIV Bilevel 50.00 10/17/17 05:00 63 28 107/68 (81) 100 NIV Bilevel 50.00 10/17/17 04:45 64 21 126/62 (83) 100 NIV Bilevel 50.00 10/17/17 04:30 65 29 122/81 (95) 99 NIV Bilevel 50.00 10/17/17 04:15 61 11 111/94 (100) 95 NIV Bilevel 40.00 10/17/17 04:00 63 23 85/51 (62) 96 NIV Bilevel 40.00 10/17/17 03:45 67 21 92/53 (66) 96 NIV Bilevel 40.00 10/17/17 03:34 68 22 86/47 (60) 95 NIV Bilevel 40.00 10/17/17 03:33 67 22 98 50.00 10/17/17 03:15 74 17 107/58 (74) 98 NIV Bilevel 50.00 10/17/17 03:00 72 16 104/53 (70) 98 NIV Bilevel 50.00 10/17/17 02:45 72 16 106/61 (76) 98 NIV Bilevel 50.00 10/17/17 02:30 74 17 106/56 (73) 98 NIV Bilevel 50.00 10/17/17 02:15 74 17 102/54 (70) 98 NIV Bilevel 50.00 10/17/17 02:00 77 17 96/58 (71) 97 NIV Bilevel 50.00 10/17/17 01:45 79 16 119/62 (81) 97 NIV Bilevel 50.00 10/17/17 01:30 80 16 96/61 (73) 96 NIV Bilevel 50.00 10/17/17 01:15 68 15 93/53 (66) 97 NIV Bilevel 50.00 10/17/17 01:00 71 27 96 50.00 10/17/17 01:00 73 10/17/17 01:00 73 23 108/69 (82) 96 NIV Bilevel 50.00 10/17/17 00:45 74 10 133/70 (91) 95 NIV Bilevel 50.00 10/17/17 00:40 73 14 127/67 (87) 97 NIV Bilevel 50.00 10/16/17 23:58 93/60 (71) 10/16/17 23:55 97.6 67 22 90/59 (69) 96 NIV Bilevel 50.00 10/16/17 23:48 78 34 98 60.00 10/16/17 21:30 78 20 111/78 (89) 96 NIV Bilevel 35.00 10/16/17 21:09 78 22 96 60.00 10/16/17 21:00 NIV Bilevel 10/16/17 19:35 98.2 77 20 127/73 (91) 95 NIV Bilevel 35.00 10/16/17 19:23 76 22 94 35.00 10/16/17 19:00 81 10/16/17 17:45 78 20 118/72 (87) 94 NIV Bilevel 35.00 10/16/17 15:42 93 NIV Bilevel 35.00 10/16/17 15:40 78 22 118/74 (89) 94 NIV Bilevel 40.00 10/16/17 15:35 97.7 78 20 128/61 (83) 98 NIV Bilevel 40.00 10/16/17 14:11 NIV Bilevel 40.00 10/16/17 13:56 75 18 86 32.00 10/16/17 12:38 99 36 10/16/17 11:55 NIV Bilevel 32.00 10/16/17 11:45 97.8 82 19 113/59 (77) 99 NIV Bilevel 35.00 10/16/17 11:45 NIV Bilevel 35.00 10/16/17 11:43 75 20 99 36.00 10/16/17 11:33 95 18 110/67 95 NIV Bilevel 10/16/17 10:54 80 20 95 10/16/17 08:50 82 21 95 10/16/17 08:01 98.0 90 24 142/75 (97) 96 Nasal Cannula 3.00 10/16/17 08:01 Nasal Cannula 3.00 I & O 10/17/17 07:00 Intake Total 150 ml Output Total 875 ml Balance -725 ml General Appearance: WD/WN, Chronically ill, Mild Distress, Obese, Other ( confused) HEENT: PERRL/EOMI, Normal ENT Inspection, Pharynx Normal Neck: Full Range of Motion, Normal Inspection, Non Tender, Supple, Carotid Bruit Respiratory: Chest Non Tender, Crackles, Decreased Breath Sounds, Wheezing, Other (on biPAP) Cardiovascular: Regular Rate, Rhythm, No Edema, No Gallop, No JVD, No Murmur, Normal Peripheral Pulses Capillary Refill: Less Than 3 Seconds Gastrointestinal: normal bowel sounds, non tender, soft, no organomegaly, no pulsatile mass Extremity: Normal Capillary Refill, Normal Inspection, Normal Range of Motion, Non Tender, No Calf Tenderness, No Pedal Edema Neurologic/Psychiatric: Disoriented Skin: Normal Color, Warm/Dry Lymphatic: No Adenopathy Results Lab Laboratory Tests 10/16/17 08:10 10/17/17 03:28 Assessment/Plan Assessment/Plan Acute on chronic respiratory failure -D/C BiPAP - pt does not ever want BiPAP COPDAE r/o PNA -No productive cough leukocytosis or fever currently -jensen culture Hx of severe COPD oxygen dependent -Noncompliant with home vent to mask. chronic debility frequent hospitalizations Hypoxia Morbid obesity with OHS -PT is noncompliant with PAP therapy PT is very upset because we encouraged BiPAP use last night. She has a vent to mask at home however she does not like to use it and is very noncompliant. She has frequent hospitalizations. Pt wants to be discharged today and she wants more information about hospice. I will consult hospice for education. Pt would be a good candidate out patient hospice. 60min spent with patient and medical staff discussing details. CHRISTEL CARUSO DO October 17, 2017 06:02
--- NOTE | 2017-10-17 07:45 | Diagnostic Imaging Report ---
INDICATION: Respiratory failure. COPD exacerbation. COMPARISON: 10/16/2017 FINDINGS: Single frontal radiographic view of the chest was obtained and demonstrates persistent asymmetric elevation left hemidiaphragm with probable small left pleural effusion. Overall, aeration is stable. There is no pneumothorax on either side. Cardiac silhouette remains mildly enlarged. Pulmonary vasculature and pulmonary interstitium also remain prominent as well. Bony structures show no gross acute abnormalities. IMPRESSION: 1. Stable exam of the chest showing cardiomegaly with pulmonary vascular congestion and probable interstitial pulmonary edema. 2. Stable asymmetric elevation left hemidiaphragm with probable left basilar effusion. Dictated by: Dictated on workstation # [id number]
--- NOTE | 2017-10-17 10:08 | Progress Note-Hospitalist ---
Subjective HPI/CC On Admission Date Seen by Provider: October 17, 2017 Time Seen by Provider: 10:15 CC: Confusion due to CO2 narcosis HPI: This is a 67-year-old white female who resides at [facility] assisted living with a past medical history of acute on chronic respiratory failure with obesity hypoventilation syndrome with severe obstructive sleep apnea who presented to the ER with confusion found to have a CO2 of 105 above her baseline of usual 70. Apparently her sister and children try to keep her mask on her face but she is not very compliant with that and she takes it off quickly afterwards placed. Overall prognosis is extremely poor given the fact of chronic respiratory failure and unable to be compliant with her CPAP/BiPAP machine so I did speak to Dr. Dorman regarding possibly placement of a trach because of the severity of her neck circumference and obstruction. She is wheezing has been placed on Solu-Medrol and will follow-up on coverage for pneumonia. Patient is still confused so I'm unable to obtain many details from her but her sister does report a cough but no fever. She denies any significant pain and she is able to become more alert than when she was originally admitted through the ER. Subjective/Events-last exam Patient is worse and declining rapidly Dr. Dorman discussed hospice Needs to go home on hospice since there is no ability for me to improve her status due to the severity of sleep apnea and obesity hypoventilation syndrome Review of Systems Pulmonary: Dyspnea Objective Exam Vital Signs Vital Signs Date Time Temp Pulse Resp B/P (MAP) Pulse Ox O2 Delivery O2 Flow Rate FiO2 10/17/17 10:00 81 19 92 High Flow N/C 15.00 10/17/17 08:00 107/80 (89) 10/16/17 23:55 97.6 10/16/17 12:38 36 Capillary Refill : Less Than 3 Seconds General Appearance: WD/WN, Chronically ill, Mild Distress (due to tachypnea), Obese Respiratory: Crackles, Decreased Breath Sounds, Wheezing Cardiovascular: Regular Rate, Rhythm, No Edema Neurologic/Psychiatric: Other (drowsy) Results/Procedures Lab Laboratory Tests 10/17/17 03:28 Patient resulted labs reviewed. Assessment/Plan Assessment and Plan Assess & Plan/Chief Complaint Assessment: Abnl CXR w/o pneumonia Respiratory failure Poor prognosis IV steroids Abx Nebs O2 Hospice Diagnosis/Problems Diagnosis/Problems (1) Obesity hypoventilation syndrome Status: Acute (2) Obesity (BMI 30-39.9) Status: Chronic (3) Acute respiratory failure with hypoxia and hypercarbia Status: Acute (4) COPD with acute exacerbation Status: Acute (5) Essential (primary) hypertension Status: Chronic (6) Restless leg syndrome Status: Chronic (7) Hypercarbia Status: Acute (8) Poor prognosis Status: Chronic Clinical Quality Measures DVT/VTE Risk/Contraindication: Risk Factor Score Per Nursin RFS Level Per Nursing on Admit: 4+=Very High SHUN BERTRAND DO October 17, 2017 10:08
[2017-10-17] MEDS: NS IV 1000 ML 1,000 ML IV SCH (13:11)
[2017-10-18] MEDS: RT-ALBUTEROL SULF 2.5 MG/3 ML PRE-MIX VIAL INH SCH ×7 (03:20→22:29)
[2017-10-18 03:35] VITALS: BP 148/78
[2017-10-18] MEDS: methylPREDNISolone 40 MG/ML (Solu-MEDROL) VIAL IV SCH ×4 (05:49→23:46)
[2017-10-18 06:43] LABS: BASOPHILS % (AUTO) 0 % (0-10); EOSINOPHILS % (AUTO) 0 % (0-10); HEMATOCRIT 41 % (35-52); HEMOGLOBIN 12.3 G/DL (11.5-16.0); LYMPHOCYTES # (AUTO) 0.5 X 10^3 (1.0-4.0); LYMPHOCYTES % (AUTO) 6 % (12-44); MEAN CORPUSCULAR HEMOGLOBIN 30 PG (25-34); MEAN CORPUSCULAR HGB CONC 30 G/DL (32-36); MEAN CORPUSCULAR VOLUME 101 FL (80-99); MEAN PLATELET VOLUME 11.2 FL (7.4-10.4); MONOCYTES # (AUTO) 0.5 X 10^3 (0.0-1.0); MONOCYTES % (AUTO) 5 % (0-12); NEUTROPHILS # (AUTO) 8.6 X 10^3 (1.8-7.8); NEUTROPHILS % (AUTO) 89 % (42-75); PLATELET COUNT 235 10^3/uL (130-400); RED BLOOD COUNT 4.05 10^6/uL (4.35-5.85); RED CELL DISTRIBUTION WIDTH 14.8 % (10.0-14.5); WHITE BLOOD COUNT 9.6 10^3/uL (4.3-11.0)
[2017-10-18 07:03] LABS: BUN/CREATININE RATIO 33; CALCIUM 10.4 MG/DL (8.5-10.1); CARBON DIOXIDE 37 MMOL/L (21-32); CHLORIDE 98 MMOL/L (98-107); CREATININE SERUM 0.89 MG/DL (0.60-1.30); GFR ESTIMATED > 60; GLUCOSE 170 MG/DL (70-105); MAGNESIUM 2.5 MG/DL (1.8-2.4); PHOSPHORUS 3.4 MG/DL (2.3-4.7); POTASSIUM 5.2 MMOL/L (3.6-5.0); SODIUM 142 MMOL/L (135-145)
[2017-10-18 07:35] VITALS: BP 161/73
[2017-10-18 12:00] VITALS: BP 162/76
[2017-10-18] MEDS: NS IV 1000 ML 1,000 ML IV SCH (12:08)
--- NOTE | 2017-10-18 12:25 | Progress Note-Hospitalist ---
Progress Note Progress Notes/Assess & Plan Date Seen 10/18/17 Time Seen by Provider: 12:17 Assessment & Plan The patient is a 67-year-old white female admitted with acute on chronic respiratory failure with hypercapnia. She was treated with aggressive pulmonary toilet including steroids and pressure support. She has come along slowly and is nearing Optimal improvement and therefore discharge plans are being made LUIS HERNÁNDEZ MD October 18, 2017 12:25
[2017-10-18 16:04] VITALS: BP 163/73
[2017-10-18] MEDS ORDERED: POLYETHYLENE GLYCOL 17 GM (MIRALAX) PACK PO PRN (16:15)
[2017-10-18] MEDS ORDERED: DOCUSATE SODIUM 100 MG (COLACE) CAP PO PRN (16:15)
[2017-10-18] MEDS ORDERED: POLYETHYLENE GLYCOL 17 GM (MIRALAX) PACK PO ONE (16:15)
[2017-10-18] MEDS ORDERED: ACETAMINOPHEN 325 MG TABLET/CAPLET (TYLENOL) ONE (16:17)
[2017-10-18] MEDS ORDERED: ACETAMINOPHEN 325 MG TABLET/CAPLET (TYLENOL) PO PRN (16:30)
[2017-10-18 20:59] VITALS: BP 154/74
[2017-10-19 00:45] VITALS: BP 168/74
[2017-10-19] MEDS: RT-ALBUTEROL SULF 2.5 MG/3 ML PRE-MIX VIAL INH SCH ×5 (02:13→19:16)
[2017-10-19 03:40] LABS: BASOPHILS % (AUTO) 0 % (0-10); EOSINOPHILS % (AUTO) 0 % (0-10); HEMATOCRIT 40 % (35-52); HEMOGLOBIN 11.6 G/DL (11.5-16.0); LYMPHOCYTES # (AUTO) 0.5 X 10^3 (1.0-4.0); LYMPHOCYTES % (AUTO) 6 % (12-44); MEAN CORPUSCULAR HEMOGLOBIN 30 PG (25-34); MEAN CORPUSCULAR HGB CONC 29 G/DL (32-36); MEAN CORPUSCULAR VOLUME 104 FL (80-99); MEAN PLATELET VOLUME 10.9 FL (7.4-10.4); MONOCYTES # (AUTO) 0.6 X 10^3 (0.0-1.0); MONOCYTES % (AUTO) 7 % (0-12); NEUTROPHILS # (AUTO) 7.2 X 10^3 (1.8-7.8); NEUTROPHILS % (AUTO) 87 % (42-75); PLATELET COUNT 220 10^3/uL (130-400); RED BLOOD COUNT 3.85 10^6/uL (4.35-5.85); RED CELL DISTRIBUTION WIDTH 14.6 % (10.0-14.5); WHITE BLOOD COUNT 8.3 10^3/uL (4.3-11.0)
[2017-10-19 03:58] LABS: BUN/CREATININE RATIO 36; CALCIUM 9.2 MG/DL (8.5-10.1); CARBON DIOXIDE 36 MMOL/L (21-32); CHLORIDE 100 MMOL/L (98-107); GFR ESTIMATED > 60; GLUCOSE 201 MG/DL (70-105); MAGNESIUM 2.2 MG/DL (1.8-2.4); PHOSPHORUS 2.7 MG/DL (2.3-4.7); SODIUM 141 MMOL/L (135-145)
[2017-10-19] MEDS: methylPREDNISolone 40 MG/ML (Solu-MEDROL) VIAL IV SCH ×3 (05:17→17:11)
[2017-10-19 08:00] VITALS: BP 166/75
[2017-10-19] MEDS: DOCUSATE SODIUM 100 MG (COLACE) CAP PO SCH (08:08)
[2017-10-19 09:30] VITALS: BP 150/76
[2017-10-19] MEDS ORDERED: SUCRALFATE 1 GM (CARAFATE) TAB PO NR (10:08)
[2017-10-19] MEDS: SUCRALFATE 1 GM (CARAFATE) TAB PO SCH ×4 (10:25→21:28)
[2017-10-19 11:00] VITALS: BP 166/75
[2017-10-19] MEDS: NS IV 1000 ML 1,000 ML IV SCH (12:24)
--- NOTE | 2017-10-19 13:09 | Progress Note-Hospitalist ---
Progress Note Progress Notes/Assess & Plan Date Seen 10/19/17 Time Seen by Provider: 13:08 Assessment & Plan The patient had an unsettled night. There were many complaints including chest pain abdominal pain heartburn. She ultimately felt considerably better after a large bowel movement. She reports at this time she is back to ground 0. Physical exam: She is alert. Lungs show very distant breath sounds. CV is regular without murmur. Impression: 1.respiratory failure, improved 2.COPD Plan: Discharge to correction tomorrow. LUIS HERNÁNDEZ MD October 19, 2017 13:09
[2017-10-19 15:50] VITALS: BP 149/71
[2017-10-19] MEDS ORDERED: RT-ALBUTEROL SULF 2.5 MG/3 ML PRE-MIX VIAL INH PRN (18:00)
[2017-10-20 00:10] VITALS: BP 156/71
[2017-10-20] MEDS: methylPREDNISolone 40 MG/ML (Solu-MEDROL) VIAL IV SCH ×3 (00:31→12:50)
[2017-10-20 04:51] LABS: BASOPHILS % (AUTO) 0 % (0-10); EOSINOPHILS % (AUTO) 0 % (0-10); HEMATOCRIT 43 % (35-52); HEMOGLOBIN 12.2 G/DL (11.5-16.0); LYMPHOCYTES # (AUTO) 0.5 X 10^3 (1.0-4.0); LYMPHOCYTES % (AUTO) 5 % (12-44); MEAN CORPUSCULAR HEMOGLOBIN 29 PG (25-34); MEAN CORPUSCULAR HGB CONC 28 G/DL (32-36); MEAN CORPUSCULAR VOLUME 105 FL (80-99); MEAN PLATELET VOLUME 10.7 FL (7.4-10.4); MONOCYTES # (AUTO) 0.8 X 10^3 (0.0-1.0); MONOCYTES % (AUTO) 9 % (0-12); NEUTROPHILS # (AUTO) 8.1 X 10^3 (1.8-7.8); NEUTROPHILS % (AUTO) 86 % (42-75); PLATELET COUNT 229 10^3/uL (130-400); RED BLOOD COUNT 4.15 10^6/uL (4.35-5.85); RED CELL DISTRIBUTION WIDTH 14.8 % (10.0-14.5); WHITE BLOOD COUNT 9.4 10^3/uL (4.3-11.0)
[2017-10-20 05:17] LABS: BUN/CREATININE RATIO 30; CALCIUM 10.1 MG/DL (8.5-10.1); CARBON DIOXIDE 39 MMOL/L (21-32); CHLORIDE 93 MMOL/L (98-107); CREATININE SERUM 0.88 MG/DL (0.60-1.30); GFR ESTIMATED > 60; GLUCOSE 196 MG/DL (70-105); MAGNESIUM 2.6 MG/DL (1.8-2.4); POTASSIUM 5.1 MMOL/L (3.6-5.0); SODIUM 139 MMOL/L (135-145)
[2017-10-20] MEDS: RT-ALBUTEROL SULF 2.5 MG/3 ML PRE-MIX VIAL INH SCH ×2 (06:43→10:45)
[2017-10-20] MEDS ORDERED: BISACODYL 10 MG SUPP (DULCOLAX) PR NR (07:19)
[2017-10-20 07:47] VITALS: BP 140/77
[2017-10-20] MEDS: DOCUSATE SODIUM 100 MG (COLACE) CAP PO SCH (09:48)
[2017-10-20] MEDS: SUCRALFATE 1 GM (CARAFATE) TAB PO SCH ×2 (09:48→12:55)
--- NOTE | 2017-10-20 10:55 | Progress Note-Hospitalist ---
Progress Note Progress Notes/Assess & Plan Date Seen 10/20/17 Time Seen by Provider: 10:53 Assessment & Plan The plan had been to transfer back to [facility] today on [facility]. These plans have been confirmed. The patient is anxious to get there. Her daughter will come to pick her up and transfer her. Vital signs are stable. Her SaO2 is in the mid 90s on O2 by nasal cannula at 6 L. Physical exam: She is alert and oriented. Lungs show very distant breath sounds. CV is regular without murmur. Abdomen is obese. The ankles show no pedal edema. Impression: End-stage COPD. LUIS HERNÁNDEZ MD October 20, 2017 10:54
--- NOTE | 2017-10-20 10:57 | Discharge Instructions ---
Discharge Instructions Patient Instructions Patient Instructions: The patient has elected to go to hospice status with [facility]. Medications as detailed in the discharge sequence. Oxygen per nasal cannula at 6 L. [facility] to [facility]: DO NOT RESUSCITATE status Activity & Diet Discharge Diet: Regular Diet Activity as Tolerated: Yes LUIS HERNÁNDEZ MD October 20, 2017 10:57
[2017-10-20 13:10] VITALS: BP 140/77
--- NOTE | 2017-11-05 11:19 | Discharge Summary-Hospitalist ---
Diagnosis/Chief Complaint Date of Admission October 16, 2017 at 10:50 Date of Discharge October 20, 2017 at 13:10 Discharge Date: October 20, 2017 Admission Diagnosis CO2 narcosis Discharge Diagnosis End-stage COPD. 2.CO2 narcosis/respiratory failure at admission. (1) Obesity hypoventilation syndrome Status: Acute (2) Obesity (BMI 30-39.9) Status: Chronic (3) Acute respiratory failure with hypoxia and hypercarbia Status: Acute (4) COPD with acute exacerbation Status: Acute (5) Essential (primary) hypertension Status: Chronic (6) Restless leg syndrome Status: Chronic (7) Hypercarbia Status: Acute (8) Poor prognosis Status: Chronic Discharge Summary Discharge Physical Exam Allergies: Coded Allergies: No Known Drug Allergies (Unverified , 02/08/11) General Appearance: Alert, Oriented X3, Cooperative Hospital Course The patient was admitted by Dr. Sunshine to the hospitalist service. She presented with confusion. She has severe COPD. Her initial blood gas showed acidosis and a CO2 greater than 100 with a baseline of about 70. Aggressive respiratory therapy and pulmonary toilet were applied. She improved steadily. It was her wish to return to [facility] on hospice status. Arrangements were made for her to have oxygen at 6 L/m continuously. Her outlook is poor and the hospice election with [facility] is appropriate. Labs (last 24 hrs) Patient resulted labs reviewed. Discussion & Recommendations Discharge Planning: >30 minutes discharge planning Discharge Home Medications: Active Scripts Active Reported Lisinopril 5 Mg Tablet 5 Mg PO DAILY Buspirone HCl 15 Mg Tablet 15 Mg PO HS Albuterol Sulfate 2.5 Mg/3 Ml Vial.neb 2.5 Mg NEB Q4H PRN Ropinirole HCl 1 Mg Tablet 1 Mg PO HS Probiotic (L.acidoph & Paracasei,B.lactis) 1 Each Capsule 1 Cap PO DAILY Potassium Chloride 10 Meq Tablet.er 10 Meq PO DAILY Omeprazole 40 Mg Capsule.dr 40 Mg PO DAILY Furosemide 20 Mg Tablet 20 Mg PO DAILY Flonase Allergy Relief (Fluticasone Propionate) 9.9 Ml [place].susp 2 Sprays NS DAILY PRN Miralax (Polyethylene Glycol 3350) 17 Gm Powd.pack 17 Gm PO DAILY PRN Mobic (Meloxicam) 15 Mg Tablet 15 Mg PO DAILY Colace (Docusate Sodium) 100 Mg Capsule 100 Mg PO DAILY Symbicort 160-4.5 Mcg Inhaler (Budesonide/Formoterol Fumarate) 10.2 Gm Hfa.aer.ad 2 Puff IH BID Pravastatin Sodium 40 Mg Tablet 40 Mg PO HS Escitalopram Oxalate 10 Mg Tablet 10 Mg PO DAILY Aspirin EC (Aspirin) 325 Mg Tablet.dr 325 Mg PO DAILY Instructions to patient/family Please see electronic discharge instructions given to patient. Clinical Quality Measures DVT/VTE Risk/Contraindication: Risk Factor Score Per Nursin RFS Level Per Nursing on Admit: 4+=Very High LUIS HERNÁNDEZ MD Nov 05, 2017 11:19
== END 2017-10-20 13:10 | disposition hospice, home (50) | DRG 189 ==
LOC: EDUNIT# 08:01 → ER 08:03 → 4TH 10:50 → ICU 10-17 02:18 → 4TH 10-17 10:10
PROVIDERS: ADMIT Internal Medicine; ATTEND Internal Medicine
DX: J96.21 Acute and chronic respiratory failure with hypoxia (principal); J96.22 Acute and chronic respiratory failure with hypercapnia; J44.1 Chronic obstructive pulmonary disease with (acute) exacerbation; E66.2 Morbid (severe) obesity with alveolar hypoventilation; Z68.41 Body mass index [BMI] 40.0-44.9, adult; K21.9 Gastro-esophageal reflux disease without esophagitis; F41.9 Anxiety disorder, unspecified; Z66 Do not resuscitate; F32.9 Major depressive disorder, single episode, unspecified; I10 Essential (primary) hypertension; G25.81 Restless legs syndrome; Z91.19 Patient's noncompliance with other medical treatment and regimen
CPT/HCPCS: 36415; 51702; 70450; 71045; 73590; 80048; 80053; 81000; 82805; 83735; 84100; 85007; 85025; 85027; 93005; 94640; 94660; 94760; 96374; 96375; 96376